=== PATIENT | male | born 1965 | race Caucasian/White ===

== ENCOUNTER → 2017-10-26 | Outpatient (CLI) | payer MEDICARE, OTHER ==
--- NOTE | 2017-10-26 22:16 | CT ---
EXAMINATION TYPE: CT chest abdomen w con DATE OF EXAM: 10/26/2017 INDICATION: Right sided abdominal pain and COPD. COMPARISON: 11/10/2014 CT DLP: 658.9 mGycm CONTRAST: Performed with Oral Contrast and with IV Contrast, patient injected with 100 mL of Isovue M300. TECHNIQUE: Axial images at 5 mm thick sections. Reconstructed images in the coronal plane. Delayed images through the kidneys. FINDINGS: CT CHEST: Portion of the thyroid visualized is normal. No suspicious lung nodules or focal infiltrates are present. No enlarged mediastinal or hilar adenopathy is evident. The ascending aorta diameter at the level of the main pulmonary artery is 3.9 cm. The main pulmonary artery diameter at the bifurcation is 2.9 cm. Coronary artery calcification is noted. Minimal hiatal hernia may be present. CT ABDOMEN: Liver: Normal Spleen: Normal Pancreas: Normal Adrenal glands: The adrenal glands are normal. Gallbladder: Normal Kidneys: No masses are evident. No hydronephrosis is present. There is a 3.7 cm cyst measuring 5 Ho unsfield units in the inferior pole right kidney. Delayed images were obtained through the kidneys, which remain unremarkable. Aorta: Vascular calcification is within the aorta. Inferior vena cava: Normal. Note is made of postsurgical changes within the upper pelvis. Loops of bowel distended with oral cont rast appear unremarkable. IMPRESSIONS: 1. No suspicious changes to account for right-sided abdominal pain. 2. No suspicious changes suggest metastatic disease.
== END | disposition home or self-care (01) ==
LOC: RADCTMAIN 14:08
PROVIDERS: ATTEND Family Medicine
DX: J44.9 Chronic obstructive pulmonary disease, unspecified (principal); R10.9 Unspecified abdominal pain
CPT/HCPCS: 71260; 74160; Q9967

== ENCOUNTER 2019-04-26 21:35 | Inpatient (IN) | payer MEDICARE, OTHER ==
[2019-04-26] MEDS ORDERED: LORazepam 2 MG/ML INJ IV PRN (23:20)
[2019-04-26] MEDS: LORazepam 2 MG/ML INJ IV PRN ×2 (23:25→23:50)
[2019-04-26] MEDS ORDERED: LORazepam 2 MG/ML INJ IV STA (23:31)
[2019-04-26] MEDS ORDERED: NALOXONE 0.4 MG/ML 1 ML VIAL IV PRN (23:48)
[2019-04-27 00:14] LABS: Glucose,Whole Blood 93 mg/dL (75-99)
--- NOTE | 2019-04-27 00:14 | P.HPIM ---
History of Present Illness H&P Date: 04/26/19 The patient is a 54 yo M with a PMH of EtOH abuse and seizure disorder who initially presented to [facility] ED earlier today for confusion and rigidity of his arms. History obtained from the ED physician at [place] (Dr Machado) and from the chart since patient unable to provide history due to active EtOH withdrawal. The patient had reported a history of seizure disorder though he had stopped taking his prescribed Depakote since he didn't like the way it made him feel. The patient had also stated that he had an episode of confusion where he bit his tongue a week prior, possible a seizure. The patient reported drinking 8-10 beers daily with his last beer an hour prior to presentation to the ED. The patient's mentation deteriorated during his stay and he began to hallucinate. He was subsequently transferred to [facility] for further management. The patient not following any commands or answering any questions and severely agitated during interview. Patient underwent an extensive evaluation at [facility] ED which was reviewed personally by me. CT Head had revealed cerebral atrophy, CXR was unremarkable, EKG showed sinus tachycardia @ 108 bpm. Laboratory evaluation had revealed a WBC count of 5.43, hemoglobin 11.9, platelet 131, sodium 132, potassium 3.6, chloride 97, CO2 24, BUN 11, creatinine 0.7, AST 64, ALT 43, alk phos 44, albumin 4.0, glucose 92, and a magnesium of 1.0. The patient was given IV thiamine, 4 g of IV magnesium, and 2 mg of IVP Ativan and was transferred to [place]. Review of Systems ROS unobtainable: due to mental status (not following any commands) Past Medical History Past Medical History: Seizure Disorder Additional Past Medical History / Comment(s): Alcohol abuse History of Any Multi-Drug Resistant Organisms: None Reported Past Surgical History: No Surgical Hx Reported Past Psychological History: Unable to Obtain Medications and Allergies Allergies Allergy/AdvReac Type Severity Reaction Status Date / Time No Known Allergies Allergy Verified 04/26/19 23:19 Physical Exam Vitals: Vital Signs Pulse Resp BP Pulse Ox 04/26/19 23:13 120 H 24 135/82 98 Intake and Output 04/26/19 04/26/19 04/27/19 14:59 22:59 06:59 Other: Weight 77.11 kg General: severely agitated M, appears at stated age, normal weight Derm: no unusual rashes/lesions no unusual ecchymoses, warm, dry Head: atraumatic, normocephalic, symmetric Eyes: anicteric sclera, pupils equal round reactive to light ENT: Nose and ears atraumatic, no thrush, no pharyngeal erythema Neck: No thyromegaly, no cervical lymphadenopathy, trachea midline, supple Mouth: no lip lesion, mucus membranes dry Cardiovascular: S1S2 reg, tachycardic, no murmur, positive posterior tibial pulse bilateral, no edema, capillary refill less than 2 seconds Lungs: CTA bilateral, no rhonchi, no rales , no accessory muscle use Abdominal: soft, no guarding, no appreciable organomegaly Ext: no gross muscle atrophy, unable to assess strength since patient not following commands Neuro: Moving all extremities, diffuse rigidity, unable to perform complete examination since patient not following commands Psych: Not answering any questions appropriately Assessment and Plan Plan: EtOH with delirium tremens -CIWA protocol w/ possible Ativan infusion -Thiamine, Folic acid, MV -Fall, aspiration, seizure precautions -Monitor electrolytes -Neurochecks Hx of seizure disorder -C/w Depakote home dose Severe hypomagnasemia s/p 4 g of IV Mg-sulfate -Monitor and replace as needed Thrombocytopenia -Likely due to EtOH abuse -Monitor for now Deranged LFTs -Due to EtOH withdrawal DVT prophylaxis -Heparin The patient is admitted with an anticipated less than 2 midnight stay for evaluation of DTs CODE STATUS: Full Code Anticipated discharge date: 4-[address]: Home A total of 40 minutes was spent on the care of this complex patient more than 50% of the time was spent in counseling and care coordination.
[2019-04-27] MEDS: LORazepam 2 MG/ML INJ IV PRN ×2 (01:00→05:15)
[2019-04-27] MEDS: HEPARIN SODIUM,PORCINE 5,000 UNIT/ML 1 ML VIAL SQ SCH ×4 (02:22→23:22)
[2019-04-27 05:35] LABS: Basophils % (A) 1 %; Eosinophils # (A) 0.3 k/uL (0-0.7); Eosinophils % (A) 5 %; HCT 35.3 % (39.0-53.0); HGB 11.9 gm/dL (13.0-17.5); Lymphocytes # (A) 0.7 k/uL (1.0-4.8); Lymphocytes % (A) 13 %; MCH 37.6 pg (25.0-35.0); MCHC 33.7 g/dL (31.0-37.0); MCV 111.4 fL (80.0-100.0); Macrocytosis Marked; Mean Platelet Volume 6.9; Monocytes # (A) 0.5 k/uL (0-1.0); Monocytes % (A) 10 %; Neutrophils # (A) 3.6 k/uL (1.3-7.7); Neutrophils % (A) 69 %; Platelet Count 146 k/uL (150-450); RBC 3.17 m/uL (4.30-5.90); RDW 12.8 % (11.5-15.5); WBC 5.3 k/uL (3.8-10.6)
[2019-04-27 05:56] LABS: ALT 46 U/L (21-72); AST 57 U/L (17-59); African American GFR (CKD) >90 (>60 ml/min/1.73 sqM); Albumin 3.8 g/dL (3.5-5.0); Alkaline Phosphatase 40 U/L (38-126); Anion Gap 8 mmol/L; Blood Urea Nitrogen 8 mg/dL (9-20); Calcium 8.7 mg/dL (8.4-10.2); Carbon Dioxide 24 mmol/L (22-30); Chloride 105 mmol/L (98-107); Glucose 73 mg/dL (74-99); Magnesium 1.8 mg/dL (1.6-2.3); Phosphorus 3.4 mg/dL (2.5-4.5); Potassium 3.6 mmol/L (3.5-5.1); Sodium 137 mmol/L (137-145); Total Bilirubin 0.7 mg/dL (0.2-1.3); Total Protein 6.2 g/dL (6.3-8.2)
[2019-04-27] MEDS: MAGNESIUM SULFATE-D5W PMX 1 GM in DEXTROSE/WATER 1 100ML.BAG IVPB SCH ×2 (06:28→08:11)
[2019-04-27] MEDS: POTASSIUM CHLORIDE 10 MEQ in WATER FOR INJECTION 1 100ML.BAG IVPB SCH ×2 (06:29→08:11)
[2019-04-27] MEDS: FOLIC ACID 1 MG TAB PO SCH (08:11)
[2019-04-27] MEDS ORDERED: THIAMINE 100 MG in SODIUM CHLORIDE 0.9% 50 ML IVPB SCH (09:00)
[2019-04-27] MEDS: SODIUM CHLORIDE 0.9% 1,000 ML IV SCH (10:52)
--- NOTE | 2019-04-27 13:08 | P.CNPUL ---
History of Present Illness Consult date: 04/27/19 Chief complaint: Alcohol withdrawal History of present illness: 4-year-old male patient with known history of alcoholism and seizure disorder and previous history of malignancy probably of a GI source came into the hospital initially to [place] because of altered mentation and rigidity and weakness and dizziness. He was subsequently transferred to our hospital and overnight the patient got transferred to the intensive care unit as the patient was having active alcohol withdrawal and he was in delirium tremens. Overnight the patient was treated with Atrovent and this morning he is calm and comfortable still drowsy yet arousable and is following some simple commands. He reported history of seizure disorder and apparently was prescribed Depakote which intake. There is no clear-cut reports history of seizure activity. This is however suspect that the patient had bitten his tongue approximately a week ago. He drinks around 8-10 beers on a daily basis. No reported head trauma. Upon arrival, the patient was quite agitated and he was not able to follow any commands and he was transferred to the ICU. His blood work shows a white cell count of 5.3 with hemoglobin of 11.5. His BUN is at 80 with a creatinine 0.5. His potassium level is at 3.6. Electrodes are all within normal limits including a liver function test. CAT scan of the brain was done and [facility] that showed cerebral atrophy. Chest x-ray was unremarkable. EKG was in a sinus rhythm. No reported aspiration. Currently he is being hydrated IV fluids. He is still on Ativan protocol. He is receiving normal saline at the rate of 50 mL an hour. He is on heparin subcu for DVT prophylaxis. No agitation this morning. Review of Systems ROS unobtainable: due to mental status Past Medical History Past Medical History: Seizure Disorder Additional Past Medical History / Comment(s): Alcohol abuse, history of colon cancer and questionable lung cancer. The most recent CAT scan of the chest and abdomen that was done on 10/26/2017 was within normal limits. However there is a prior CAT scan of the chest on 11/10/2014 that showed enlarging spiculated nodule in the right upper lobe suspicious for malignancy. PET scan confirmed that. The follow-up CAT scan that was done on 10/26/2017 showed that this has been probably surgically resected. History of Any Multi-Drug Resistant Organisms: None Reported Past Surgical History: No Surgical Hx Reported Additional Past Surgical History / Comment(s): Lung biopsy + for CA, partial resection. Colon CA with partial colectomy Past Anesthesia/Blood Transfusion Reactions: No Reported Reaction Past Psychological History: Unable to Obtain Medications and Allergies Home Medications Medication Instructions Recorded Confirmed Type No Known Home Medications 04/27/19 04/27/19 History Allergies Allergy/AdvReac Type Severity Reaction Status Date / Time No Known Allergies Allergy Verified 04/27/19 10:51 Physical Exam Vitals: Vital Signs Temp Pulse Pulse Resp BP BP Pulse Ox 04/27/19 09:00 84 23 124/87 04/27/19 08:00 98.6 F 91 18 159/97 94 L 04/27/19 07:00 105 H 23 172/105 04/27/19 06:00 96 25 H 146/101 100 04/27/19 05:00 98.1 F 100 23 166/154 92 L 04/27/19 04:00 112 H 120 H 18 140/92 93 L 04/27/19 03:00 97 25 H 123/90 96 04/27/19 02:20 96 38 H 157/81 97 04/27/19 02:10 96 40 H 157/81 96 04/27/19 02:00 100 15 157/81 99 04/27/19 01:50 22 157/81 95 04/27/19 01:40 95 21 157/81 97 04/27/19 01:30 96 22 157/81 97 04/27/19 01:20 96 22 157/81 97 04/27/19 01:10 101 H 15 157/81 97 04/27/19 01:00 22 157/81 90 L 04/27/19 00:50 99 25 H 91 L 04/27/19 00:40 98 23 92 L 04/27/19 00:30 100 25 H 92 L 04/27/19 00:20 101 H 27 H 157/81 92 L 04/27/19 00:10 112 H 24 04/27/19 00:03 107 H 48 H 04/26/19 23:13 120 H 24 135/82 98 04/26/19 23:07 97.1 F L 114 H 22 157/81 Intake and Output 04/26/19 04/27/19 04/27/19 22:59 06:59 14:59 Intake Total 600 400 Output Total 100 Balance 600 300 Intake: IV 50 0.9NS 50 Intake, IV Titration 600 350 Amount Magnesium Sulfate-D5w Pmx 100 100 1 gm In Dextrose/Water 1 100ml.bag @ 100 mls/hr IVPB Q1H [facility] Rx#: [id number] Potassium Chloride 10 meq 100 100 In Water For Injection 1 100ml.bag @ 100 mls/hr IVPB Q1H [facility] Rx#: [id number] Thiamine 100 mg In Sodium 400 150 Chloride 0.9% 50 ml @ 100 mls/hr IVPB Q12HR [facility] Rx#:[id number] Output: Urine 100 Other: Voiding Method Urinal Diaper # Voids 2 2 # Bowel Movements 1 Weight 77.11 kg The patient appeared well nourished and normally developed. Vital signs as documented. Head exam is unremarkable. No scleral icterus or corneal arcus noted. Neck is without jugular venous distension, thyromegaly, or carotid bruits. Carotid upstrokes are brisk bilaterally. Lungs are clear to auscultation and percussion. Cardiac exam reveals the PMI to be normally sized and situated. Rhythm is regular. First and second heart sounds normal. No murmurs, rubs or gallops. Abdominal exam reveals normal bowel sounds, no masses, no organomegaly and no aortic enlargement. Extremities are nonedematous and both femoral and p edal pulses are normal.Examination of the skin revealed no evidence of significant rashes, suspicious appearing nevi or other concerning lesions. Neurologically the patient is moving all 4 extremities and neurologic exam is nonfocal. Overall altered mental status improved. He still has some drowsiness and sleepiness to. He is following simple commands. Answering simple questions. Results - Laboratory Findings CBC and BMP: 04/27/19 04:41 04/27/19 04:41 Abnormal lab findings: Abnormal Labs 04/27/19 04/27/19 04:41 04:41 RBC 3.17 L Hgb 11.9 L Hct 35.3 L MCV 111.4 H MCH 37.6 H Plt Count 146 L Lymphocytes # 0.7 L Macrocytosis Marked A BUN 8 L Creatinine 0.58 L Glucose 73 L Total Protein 6.2 L Assessment and Plan Plan: 1 chronic alcoholism 2 alcohol withdrawal symptoms with delirium tremens 3 seizure disorder currently inactive in stable 4 chronic thrombocytopenia secondary to alcoholism 5 history of lung cancer, exact details are not available 6 history of colon cancer, exact details are not available. Plan Patient is stable. The patient will be kept on IV fluids. Multivitamins getting thiamine and folate. Overall condition is improved. Continue Ativan. Heparin subcu for DVT prophylaxis. The patient can be transferred out of the intensive care unit to a medical surgical floor. The patient will be leaving the ICU today. Electrodes are being replaced. Medicine on the case. Seizure precautions. We'll follow as needed.
--- NOTE | 2019-04-27 13:15 | P.PN ---
Subjective Progress Note Date: 04/27/19 Principal diagnosis: confusion Patient is a 54-year-old male with past medical history of known alcoholism, seizure disorder, and malignancy who initially was seen in the emergency department secondary to weakness and blurry vision as well as lithium lidocaine. He also reported biting his tongue. In the ER there he had worsening confusion and subsequently transferred here was requested. Patient has a history of seizure disorder but he has not been taking Depakote as himself off of this. Head CT done at [place] showed no acute intracranial process per the radiology, chest x-ray showed no acute findings, he was given 4 g of magnesium sulfate, a banana bag, 2 mg IV Ativan. On arrival here patient was not following any commands or answering questions and was severely agitated. He required additional IV Ativan and was subsequently transferred to ICU. Patient seen and examined at bedside. He states that he went to [facility] secondary to blurry vision. He believes he was transferred here because his children are fighting in the emergency department at [place]. He states he took himself off of Depakote. He does admit to an episode of tongue biting, however doesn't think he's been having seizures. He drinks proximally 8-10 beers daily and has no intentions of quitting when leaving the hospital. He asked to be discharged. I explained to him that we will monitor him for an additional 24 hours, assess his CIWA, and monitor for reoccurrence of seizures prior to discharge. Objective - Vital Signs Vital signs: Vital Signs Temp 98.6 F 04/27/19 08:00 Pulse 84 04/27/19 09:00 Resp 23 04/27/19 09:00 BP 124/87 04/27/19 09:00 Pulse Ox 94 L 04/27/19 08:00 Intake & Output 04/26/19 04/27/19 04/27/19 18:59 06:59 18:59 Intake Total 600 400 Output Total 100 Balance 600 300 Weight 77.11 kg Intake: IV 50 0.9NS 50 Intake, IV Titration 600 350 Amount Magnesium Sulfate-D5w Pmx 100 100 1 gm In Dextrose/Water 1 100ml.bag @ 100 mls/hr IVPB Q1H [facility] Rx#: [id number] Potassium Chloride 10 meq 100 100 In Water For Injection 1 100ml.bag @ 100 mls/hr IVPB Q1H [facility] Rx#: [id number] Thiamine 100 mg In Sodium 400 150 Chloride 0.9% 50 ml @ 100 mls/hr IVPB Q12HR [facility] Rx#:[id number] Output: Urine 100 Other: Voiding Method Urinal Diaper # Voids 2 2 # Bowel Movements 1 - Exam General: non toxic, no distress, disheveled, appears older than stated age Derm: warm, dry Head: atraumatic, normocephalic, symmetric Eyes: EOMI, no lid lag, anicteric sclera Mouth: no lip lesion, mucus membranes moist Cardiovascular: S1S2 reg, no murmur, positive posterior tibial pulse bilateral, Lungs: Decreased breath sounds bilateral, no rhonchi, no rales , no accessory muscle use Abdominal: soft, nontender to palpation, no guarding, no appreciable org anomegaly Ext: no gross muscle atrophy, no edema, no contractures Neuro: CN II-XI grossly intact, no focal neuro deficits, mild asterixis Psych: Alert, oriented to place, year, and self, appropriate affect - Labs CBC & Chem 7: 04/27/19 04:41 04/27/19 04:41 Labs: Abnormal Lab Results - Last 24 Hours (Table) 04/27/19 04/27/19 Range/Units 04:41 04:41 RBC 3.17 L (4.30-5.90) m/uL Hgb 11.9 L (13.0-17.5) gm/dL Hct 35.3 L (39.0-53.0) % MCV 111.4 H (80.0-100.0) fL MCH 37.6 H (25.0-35.0) pg Plt Count 146 L (150-450) k/uL Lymphocytes # 0.7 L (1.0-4.8) k/uL Macrocytosis Marked A BUN 8 L (9-20) mg/dL Creatinine 0.58 L (0.66-1.25) mg/dL Glucose 73 L (74-99) mg/dL Total Protein 6.2 L (6.3-8.2) g/dL Assessment and Plan Assessment: Delirium tremens with acute confusion, concern for seizure -Seizure precautions -Alcohol withdrawal protocol with CIWA -Thiamine, multivitamin, folic acid -Social work consultation -Patient expresses no desire to quit drinking History of seizure disorder -Patient has not been taking Depakote for 6 months -No neurology available for evaluation this weekend -Continue to monitor for seizures -Seizure precautions Hypomagnesemia -Replace and recheck in a.m. Macrocytic anemia and thrombocytopenia -Suspect secondary to alcohol use -Follow CBC -Check B12, folic acid level Tobacco abuse -Cessation -Nicotine replacement Transfer to med/surg DVT prophylaxis: Heparin Discussed with: Patient, nursing, Dr. Christianson Anticipated discharge: 24-[address]: home A total of 35 minutes was spent on the care of this complex patient more than 50% of the time was spent in counseling and care coordination.
[2019-04-27] MEDS: THIAMINE 100 MG TAB PO SCH (14:18)
[2019-04-27] MEDS: NICOTINE 14MG/24HR PATCH TRANSDERM SCH (14:19)
[2019-04-27 17:02] LABS: Glucose,Whole Blood 99 mg/dL (75-99)
[2019-04-27 20:08] LABS: Glucose,Whole Blood 197 mg/dL (75-99)
[2019-04-27 20:40] VITALS: RESP 22
[2019-04-28 05:18] VITALS: BP 157/94; TEMP 98
[2019-04-28 06:51] LABS: Glucose,Whole Blood 104 mg/dL (75-99)
[2019-04-28 07:20] VITALS: PULSE 81
[2019-04-28] MEDS: HEPARIN SODIUM,PORCINE 5,000 UNIT/ML 1 ML VIAL SQ SCH (07:27)
[2019-04-28] MEDS: FOLIC ACID 1 MG TAB PO SCH (07:27)
[2019-04-28] MEDS: THIAMINE 100 MG TAB PO SCH (07:27)
[2019-04-28] MEDS: NICOTINE 14MG/24HR PATCH TRANSDERM SCH (07:27)
[2019-04-28] MEDS: SODIUM CHLORIDE 0.9% 1,000 ML IV SCH (07:28)
[2019-04-28 08:23] LABS: Basophils % (A) 1 %; Eosinophils # (A) 0.3 k/uL (0-0.7); Eosinophils % (A) 7 %; HCT 36.6 % (39.0-53.0); HGB 12.2 gm/dL (13.0-17.5); Lymphocytes # (A) 0.8 k/uL (1.0-4.8); Lymphocytes % (A) 15 %; MCH 37.1 pg (25.0-35.0); MCHC 33.3 g/dL (31.0-37.0); MCV 111.3 fL (80.0-100.0); Macrocytosis Marked; Mean Platelet Volume 7.4; Monocytes # (A) 0.5 k/uL (0-1.0); Monocytes % (A) 10 %; Neutrophils # (A) 3.1 k/uL (1.3-7.7); Neutrophils % (A) 64 %; Platelet Count 157 k/uL (150-450); RBC 3.28 m/uL (4.30-5.90); WBC 4.9 k/uL (3.8-10.6)
[2019-04-28 08:25] LABS: African American GFR (CKD) >90 (>60 ml/min/1.73 sqM); Anion Gap 5 mmol/L; Blood Urea Nitrogen 7 mg/dL (9-20); Calcium 9.1 mg/dL (8.4-10.2); Carbon Dioxide 28 mmol/L (22-30); Chloride 102 mmol/L (98-107); Glucose 101 mg/dL (74-99); Magnesium 1.5 mg/dL (1.6-2.3); Potassium 3.9 mmol/L (3.5-5.1); Sodium 135 mmol/L (137-145)
--- NOTE | 2019-04-28 09:58 | P.DS ---
Providers Date of admission: 04/26/19 23:04 Expected date of discharge: 04/28/19 Attending physician: Sterling Key MD Consults: 04/26/19 23:27 Consult Physician Urgent Consulting Provider: Jina Christianson Consult Reason/Comments: ICU management Do you want consulting provider notified?: Already Contacted Placement Type Exists?: Yes Primary care physician: [facility] Hospital Course: Discharge Diagnosis: Toxic encephalopathy, doubt alcohol induced with rapid clearance of mentation Alcohol abuse Thrombocytopenia Tobacco abuse Hypomagnesemia Macrocytic anemia Hospital Course: Patient is a 54-year-old male with past medical history of known alcoholism, seizure disorder, and malignancy who initially was seen in the emergency department secondary to weakness and blurry vision as well as hand cramping . He also reported biting his tongue 2 weeks prior to presentation. In the ER there he had worsening confusion and subsequently transferred here was requested. Patient has a history of seizure disorder but he has not been taking Depakote as himself off of this several months ago as he thought it was not helping. Head CT done at [place] showed no acute intracranial process per radiology, chest x-ray showed no acute findings, he was given 4 g of magnesium sulfate, a banana bag, 2 mg IV Ativan. On arrival here patient was not following any commands or answering questions and was severely agitated. He required additional IV Ativan and was subsequently transferred to ICU. By the morning after admission his mentation had complete cleared. He did not require any additional doses of Ativan. 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 Patient was monitored for an additional 24 hours no signs of seizure activity. He was up and walking in the hallways. He reports not seeing a doctor due to lack of rides. He was given the number for Severiano Miller of [facility] and information on how to set up rides through his insurance. He was discharged home in stable condition. He does not drive. Patient seen and examined at bedside. No confusion, RUBI, had cramping, or blurry vision, walking fine. Wants to be discharged. Vital signs reviewed and stable. General: non toxic, no distress, appears at stated age Derm: warm, dry Head: atraumatic, normocephalic, symmetric Eyes: EOMI, no lid lag, anicteric sclera Mouth: no lip lesion, mucus membranes moist Cardiovascular: S1S2 reg, no murmur, positive posterior tibial pulse bilateral, Lungs: CTA bilateral, no rhonchi, no rales , no accessory muscle use Abdominal: soft, nontender to palpation, no guarding, no appreciable organomegaly Ext: no gross muscle atrophy, no edema, no contractures Neuro: CN II-XI grossly intact, no focal neuro deficits Psych: Alert, oriented, appropriate affect A total of 32 minutes of time were spent preparing this complex discharge summary . Patient Condition at Discharge: Stable Plan - Discharge Summary Discharge Rx Participant: Yes New Discharge Prescriptions: Continue No Known Home Medications Discharge Medication List No Known Home Medications 04/27/19 [History] Follow up Appointment(s)/Referral(s): Severiano Miller MD [REFERRING] - 1 Week Patient Instructions/Handouts: Abuse of Alcohol (DC)
== END 2019-04-28 11:20 | disposition home or self-care (01) | DRG 92 ==
LOC: 3SCARD 23:04 → 2SICU 04-27 00:24 → 3NMEDONC 04-27 15:20
PROVIDERS: ADMIT Internal Medicine; ATTEND Internal Medicine
DX: G92 Toxic encephalopathy (principal); F10.231 Alcohol dependence with withdrawal delirium; G40.909 Epilepsy, unspecified, not intractable, without status epilepticus; Z72.0 Tobacco use; Z85.038 Personal history of other malignant neoplasm of large intestine; Z85.118 Personal history of other malignant neoplasm of bronchus and lung; D53.9 Nutritional anemia, unspecified; D69.59 Other secondary thrombocytopenia; E83.42 Hypomagnesemia; R25.2 Cramp and spasm; R45.1 Restlessness and agitation; T42.6X6A Underdosing of other antiepileptic and sedative-hypnotic drugs, initial encounter; Z91.128 Patient's intentional underdosing of medication regimen for other reason; R00.0 Tachycardia, unspecified
CPT/HCPCS: 80048; 80053; 82747; 83735; 84100; 85025

== ENCOUNTER 2019-07-04 12:22 | Emergency (ER) | payer MEDICARE ==
[2019-07-04 12:40] VITALS: BP 157/104; PULSE 99; RESP 20; TEMP 98.1
[2019-07-04] MEDS ORDERED: KETOROLAC 60 MG/2 ML VIAL IM STA (14:13)
--- NOTE | 2019-07-04 14:18 | ED ---
Upper Extremity HPI - General Chief Complaint: Extremity Injury, Upper Stated Complaint: Neck/Shoulder Pain Time Seen by Provider: 07/04/19 13:51 Source: patient Mode of arrival: ambulatory Limitations: no limitations - History of Present Illness Initial Comments: Patient is a 54-year-old male presenting to emergency Department with complaints of left shoulder and left-sided sided neck pain for 4 days. Patient denies any injuries or trauma to the area. Patient states he woke up 4 days ago with mild left-sided neck pain and stiffness and then the last 2 days the stiffness has traveled to his left shoulder parade and into his left shoulder. Patient states he is having a hard time sleeping secondary to the pain and stiffness. Patient denies any history of cervical or shoulder surgeries. Patient has tried Tylenol without relief of symptoms. Patient denies any numbness and tingling into the extremities, fever, chills. Patient has no other complaints at this time. Upon arrival to the ER, vital signs are stable. - Related Data Previous Rx's Medication Instructions Recorded Cyclobenzaprine [Flexeril] 5 mg PO HS #10 tab 07/04/19 methylPREDNISolone [Medrol Dose 4 mg PO DIRECTED #1 pack 07/04/19 Pack] Allergies Allergy/AdvReac Type Severity Reaction Status Date / Time No Known Allergies Allergy Verified 07/04/19 12:40 Review of Systems ROS Statement: Those systems with pertinent positive or pertinent negative responses have been documented in the HPI. ROS Other: All systems not noted in ROS Statement are negative. Past Medical History Past Medical History: Seizure Disorder Additional Past Medical History / Comment(s): Alcohol abuse, history of colon cancer and questionable lung cancer. The most recent CAT scan of the chest and abdomen that was done on 10/26/2017 was within normal limits. However there is a prior CAT scan of the chest on 11/10/2014 that showed enlarging spiculated nodule in the right upper lobe suspicious for malignancy. PET scan confirmed that. The follow-up CAT scan that was done on 10/26/2017 showed that this has been probably surgically resected. History of Any Multi-Drug Resistant Organisms: None Reported Past Surgical History: No Surgical Hx Reported Additional Past Surgical History / Comment(s): Lung biopsy + for CA, partial resection. Colon CA with partial colectomy Past Anesthesia/Blood Transfusion Reactions: No Reported Reaction Past Psychological History: Depression Smoking Status: Current every day smoker Past Alcohol Use History: Abuse, Daily Past Drug Use History: Marijuana General Exam - General Exam Comments Initial Comments: GENERAL: Well-appearing, well-nourished and in no acute distress. HEAD: Atraumatic, normocephalic. EYES: Pupils equal round and reactive to light, extraocular movements intact, sclera anicteric, conjunctiva are normal. ENT: TMs normal, nares patent, oropharynx clear without exudates. Moist mucous membranes. NECK: Mild pain with palpation a left-sided paraspinals into the left upper trap. Normal range of motion, supple without lymphadenopathy or JVD. LUNGS: Breath sounds clear to auscultation bilaterally and equal. No wheezes rales or rhonchi. HEART: Regular rate and rhythm without murmurs, rubs or gallops. ABDOMEN: Soft, nontender, normoactive bowel sounds. No guarding, no rebound. No masses appreciated. : Deferred EXTREMITIES: Pain with palpation of the left shoulder blade, posterior aspect of left shoulder. Patient has decreased left shoulder range of motion secondary to pain. No pitting or edema. No clubbing or cyanosis. NEUROLOGICAL: Cranial nerves II through XII grossly intact. Normal speech, normal gait. PSYCH: Normal mood, normal affect. SKIN: Warm, Dry, normal turgor, no rashes or lesions noted. Limitations: no limitations Course Vital Signs 07/04/19 12:35 Temperature 98.1 F Pulse Rate 99 Respiratory 20 Rate Blood Pressure 157/104 O2 Sat by Pulse 99 Oximetry Medical Decision Making - Medical Decision Making Patient is a 54-year-old male presenting with left-sided neck pain as well as left shoulder pain 4 days. No trauma or injuries. No Red flag/concerning symptoms. X-rays of the cervical spine reveal hypertrophic facet arthroplasty and mild and moderate neural foraminal narrowing on the left. No malalignment. Discussed these findings with the patient. Admits that this is most likely a muscle spasm and inflammation. Patient will be given Toradol injection the ER. Patient will also be started on a muscle relaxer as well as steroids. Patient will be given referral to orthopedic for follow-up. Patient is stable for discharge at this time he is in agreement with this plan of care. Return parameters were discussed with the patient he verbalizes understanding. Disposition Clinical Impression: Cervical muscle strain, Left shoulder pain Disposition: HOME SELF-CARE Condition: Stable Instructions (If sedation given, give patient instructions): Cervical Strain (ED) Additional Instructions: Please return to the Emergency Department if symptoms worsen or any other concerns. Follow up with orthopedics as discussed. Trial of Tylenol and muscle relaxer for pain relief. She'll course of steroids as well. Prescriptions: Cyclobenzaprine [Flexeril] 5 mg PO HS #10 tab methylPREDNISolone [Medrol Dose Pack] 4 mg PO DIRECTED #1 pack Is patient prescribed a controlled substance at d/c from ED?: No Referrals: Perry Miller MD [Primary Care Provider] - 1-2 days Nayeli Delgado DO [Doctor of Osteopathic Medicine] - 1-2 days
--- NOTE | 2019-07-04 14:52 | XR ---
EXAMINATION TYPE: XR cervical spine comp DATE OF EXAM: 07/04/2019 COMPARISON: None HISTORY: 54-year-old male with a pain and limited range of motion TECHNIQUE: 6 views FINDINGS: No predental space widening or prevertebral soft tissue swelling. Advanced hypertrophic facet arthrop athy particularly towards the left. Mild multilevel degenerative disc disease. On the right, there is mild bony neuroforaminal narrowing at C3-C4. On the left, there is moderate bony neuroforaminal narr owing at C2-C3, C3-C4, C4-C5 and more moderate at C5-C6. No odontoid view. It seems to be overall pre served alignment of the cervical spine. IMPRESSION: Hypertrophic facet arthropathy greater on the left with variable mild and moderate neural foraminal n arrowing on the left. No malalignment.
== END 2019-07-04 15:44 | disposition home or self-care (01) ==
LOC: EC 12:22
DX: S16.1XXA Strain of muscle, fascia and tendon at neck level, initial encounter (principal); M25.512 Pain in left shoulder; M48.02 Spinal stenosis, cervical region; F17.200 Nicotine dependence, unspecified, uncomplicated; Z85.038 Personal history of other malignant neoplasm of large intestine
CPT/HCPCS: 72050; 99283; 96372; J1885

== ENCOUNTER → 2019-08-10 | Outpatient (CLI) | payer MEDICARE ==
[2019-08-10 10:48] LABS: Basophils # (A) 0.1 k/uL (0-0.2); Basophils % (A) 1 %; Eosinophils # (A) 0.2 k/uL (0-0.7); Eosinophils % (A) 3 %; HCT 46.9 % (39.0-53.0); HGB 15.5 gm/dL (13.0-17.5); Lymphocytes # (A) 0.8 k/uL (1.0-4.8); Lymphocytes % (A) 13 %; MCH 34.1 pg (25.0-35.0); MCHC 33.1 g/dL (31.0-37.0); MCV 103.1 fL (80.0-100.0); Macrocytosis Slight; Monocytes # (A) 0.4 k/uL (0-1.0); Monocytes % (A) 7 %; Neutrophils # (A) 4.8 k/uL (1.3-7.7); Neutrophils % (A) 74 %; Platelet Count 272 k/uL (150-450); RBC 4.54 m/uL (4.30-5.90); RDW 12.9 % (11.5-15.5); WBC 6.5 k/uL (3.8-10.6)
[2019-08-10 10:57] LABS: ALT 15 U/L (4-49); AST 29 U/L (17-59); African American GFR (CKD) >90 (>60 ml/min/1.73 sqM); Albumin 4.3 g/dL (3.5-5.0); Alkaline Phosphatase 48 U/L (38-126); Anion Gap 6 mmol/L; Blood Urea Nitrogen 8 mg/dL (9-20); Calcium 9.6 mg/dL (8.4-10.2); Carbon Dioxide 25 mmol/L (22-30); Chloride 103 mmol/L (98-107); Glucose 83 mg/dL (74-99); Non-African American GFR(CKD) >90 (>60 ml/min/1.73 sqM); Potassium 4.8 mmol/L (3.5-5.1); Sodium 134 mmol/L (137-145); Total Bilirubin 0.6 mg/dL (0.2-1.3)
[2019-08-10 11:00] LABS: INR 0.9 (<1.2); Partial Thromboplastin Time 23.1 sec (22.0-30.0); Prothrombin Time 9.7 sec (9.0-12.0)
--- NOTE | 2019-08-10 11:06 | XR ---
EXAMINATION TYPE: XR chest 2V DATE OF EXAM: 08/10/2019 HISTORY: Z01.818 PRE-SURGICAL. REFERENCE: NONE. FINDINGS: There is apparent elevation right hemidiaphragm. The lungs are otherwise slightly overinfla kaycee but clear. Pleural spaces are clear. The heart is not enlarged. IMPRESSION: NO ACTIVE INTRATHORACIC DISEASE.
[2019-08-10 12:50] LABS: Appearance,Urine Clear (Clear); Bilirubin,Urine Negative (Negative); Blood,Urine Negative (Negative); Color,Urine Yellow; Glucose,Urine (UA) Negative (Negative); Ketones,Urine Negative (Negative); Leukocyte Esterase,Urine Negative (Negative); Nitrite,Urine Negative (Negative); PH, Urine 5.5 (5.0-8.0); Protein,Urine Negative (Negative); Specific Gravity,Urine 1.016 (1.001-1.035); Urobilinogen,Urine <2.0 mg/dL (<2.0)
== END | disposition home or self-care (01) ==
LOC: LABPAT 10:11
PROVIDERS: ATTEND Orthopaedic Surgery Orthopaedic Surgery of the Spine
DX: Z01.818 Encounter for other preprocedural examination (principal); Z01.812 Encounter for preprocedural laboratory examination; R06.02 Shortness of breath
CPT/HCPCS: 36415; 71046; 80053; 81003; 85025; 85610; 85730

== ENCOUNTER 2019-08-14 07:52 | Inpatient (IN) | payer MEDICARE ==
[2019-08-07 15:27] VITALS: BMI 25.1
[~2019-08-14 07:52] MED LIST: BACITRACIN 50,000 UNIT, POLYMYXIN B 500,000 UNIT in SODIUM CHLORIDE 0.9% IRRIGATIO 1,00... IRRIGATION ONE; DEXAMETHASONE SOD PHOSPHATE 10 MG/ML 1 ML VIAL IV ONE; HYDROmorphone 0.5 MG/0.5 ML SYRINGE IVP PRN; LIDOCAINE 1% 20 ML VIAL (10MG/ML) FOR IV START INTRADERMA PRN; MIDAZOLAM 2 MG/2 ML VIAL IV PRN; ONDANSETRON 4 MG/2 ML VIAL IVP ONE; SCOPOLAMINE 1.5MG/72HR PATCH TRANSDERM ONE
[2019-08-14] MEDS: LACTATED RINGERS 1,000 ML IV SCH (08:19)
[2019-08-14] MEDS ORDERED: PHENYLEPHRINE-0.9% NACL SYG 1 MG/10 ML SYRINGE ONE (08:49)
[2019-08-14] MEDS ORDERED: DEXAMETHASONE SOD PHOS (MDV) 100 MG/10 ML VIAL ONE (08:49)
[2019-08-14] MEDS ORDERED: MIDAZOLAM 2 MG/2 ML VIAL ONE (08:49)
[2019-08-14] MEDS ORDERED: GLYCOPYRROLATE 0.2 MG/ML 2 ML VIAL ONE (08:49)
[2019-08-14] MEDS ORDERED: ESMOLOL 100 MG/10 ML VIAL ONE (08:49)
[2019-08-14] MEDS ORDERED: SUCCINYLCHOLINE CHLORIDE 100 MG/5 ML SYR IV ONE (08:49)
[2019-08-14] MEDS ORDERED: KETAMINE 10 MG/ML 20 ML VIAL ONE (08:49)
[2019-08-14] MEDS ORDERED: ACETAMINOPHEN IV (For NPO) 1,000 MG/100 ML VIAL ONE (08:49)
[2019-08-14] MEDS ORDERED: fentaNYL (PF) 50 MCG/ML 2 ML AMP ONE (08:49)
[2019-08-14] MEDS ORDERED: ROCURONIUM BROMIDE 10 MG/ML 10 ML VIAL IV ONE (08:49)
[2019-08-14] MEDS ORDERED: PROPOFOL 10 MG/ML 20 ML VIAL IV ONE (08:49)
[2019-08-14] MEDS ORDERED: LIDOCAINE 1% INJ 10MG/ML (20 ML MDV) ONE (08:49)
[2019-08-14] MEDS ORDERED: .MORPHINE SULFATE (INJ) 10 MG/ML SYRINGE ONE (08:49)
[2019-08-14] MEDS ORDERED: THROMBIN (BOVINE) 5,000 UNIT VIAL TOPICAL ONE (08:54)
[2019-08-14] MEDS ORDERED: LIDOCAINE 0.5%-EPI 1:200,000 50 ML VIAL SQ ONE (08:54)
[2019-08-14] MEDS ORDERED: GELATIN SPONGE,ABSORB (LARGE) 1 EACH SPONGE TOPICAL ONE (08:54)
[2019-08-14] MEDS ORDERED: LACTATED RINGERS 1,000 ML IV ONE (11:21)
[2019-08-14] MEDS ORDERED: MAGNESIUM HYDROXIDE 2,400 MG/10 ML CUP PO PRN (11:27)
[2019-08-14] MEDS ORDERED: ACETAMINOPHEN TAB 325 MG TAB PO PRN (11:27)
[2019-08-14] MEDS ORDERED: traMADol 50 MG TAB PO PRN (11:27)
[2019-08-14] MEDS ORDERED: ONDANSETRON 4 MG/2 ML VIAL IVP PRN (11:27)
[2019-08-14] MEDS ORDERED: HYDROmorphone 1 MG/ML 1 ML SYRINGE IVP PRN (11:27)
[2019-08-14] MEDS ORDERED: BENZOCAINE/MENTHOL LOZENG 1 EACH LOZENGE MUCOUS MEM PRN (11:27)
--- NOTE | 2019-08-14 11:34 | FL ---
EXAMINATION TYPE: FL guidance operating room, XR cervical spine 1V DATE OF EXAM: 08/14/2019 CLINICAL HISTORY: Neck pain. TECHNIQUE: Fluoroscopy. COMPARISON: None. FINDINGS: Fluoroscopic guidance was provided during pain relief procedure performed by Dr. Swenson . A total of 16 seconds of fluoroscopic time was utilized during the procedure and 6 spot images are acquired. Images acquired shows localization of the cervical spine intraoperatively. IMPRESSION: As Above.
[2019-08-14] MEDS: HYDROcodone/APAP 5-325MG 1 EACH TAB PO PRN ×3 (13:35→22:29)
[2019-08-14] MEDS ORDERED: DIAZEPAM 5 MG TAB PO PRN (14:18)
--- NOTE | 2019-08-14 14:33 | P.OP ---
Date of Procedure: 08/14/19 Preoperative Diagnosis: Cervical stenosis C6 7, left upper extremity weakness, left upper extremity pain, facet cyst C6 7 on the left with neural compression, neck pain Postoperative Diagnosis: Same Anesthesia: GETA Pathology: other (Products of posterior decompression at C6 7 sent to pathology presumably facet cyst) Condition: stable Disposition: PACU Description of Procedure: BRIEF OPERATIVE NOTE Preoperative Diagnosis:Cervical stenosis C6 7, left upper extremity weakness, left upper extremity pain, facet cyst C6 7 on the left with neural compression, neck pain Postoperative Diagnosis:Cervical stenosis C6 7, left upper extremity weakness, left upper extremity pain, facet cyst C6 7 on the left with neural compression, neck pain Procedure: Application of Gupta head waiter for positioning for posterior spinal surgery Posterior cervical decompression laminectomy with foraminotomy and fusion C6 7 Posterior cervical fusion C6 7 Use of [employer] computer navigation device for placement of posterior cervical hardware Placement of posterior cervical hardware C6 7 Local autogenous bone grafting Surgeon: Dr. Delgado [employer] Volley[employer] Coach: Omer Sandra is present throughout the entire the case persistence during positioning, dissection, exposure, visualization, and all crucial elements of the case as well as closure. Anesthesia: General anesthesia Estimated blood loss: Approximately 100 mL Complications: None apparent Components implanted: K2M [place] posterior cervical lateral mass and posterior cervical pedicle screws with rods and 5 mL of Bio4 bone graft to supplemental local autogenous bone graft Disposition: To recovery room in good stable condition. OPERATIVE INDICATIONS The patient has had severe issues in their neck and upper extremities. He is been having significant weakness in his left upper extremity around his shoulder. He has a long history of multiple medical problems but was having worsening of his symptoms at his left upper extremity. Patient has a history of real alcohol use and severe paresthesias in his bilateral lower extremities from the waist down. The patient was found to have significant changes cervical spine and a large parents facet cyst at C6 7 on the left which correlate with much of his neck and left upper extremity pain and symptoms. The patient was having severe debility due to his shoulder pain and lack of use of his left upper extremity and we felt that surgical intervention for the severe stenosis at C6 7 due to the apparent facet cyst would give him significant relief. Our plan is to pursue posterior cervical decompression and fusion at C6 7. The patient has been through conservative treatment. We discussed various treatment options including surgery, and the patient wishes to proceed with surgery We discussed the risk, patient's alternatives and benefits of surgery including but not limited to, risk of bleeding risk of infection, risk of need for further surgery, risk of decreased, loss of motion, muscle function, malunion nonunion, hardware failure, nerve damage, paralysis, heart attack, and . OPERATIVE SUMMARY After discussing all the risks, patient alternatives and benefits at length, the patient elected to proceed with surgical intervention, signed informed consent, and presented for their procedure. The patient was seen and examined in the preoperative holding area and the surgical site was marked. The patient was given antibiotics and brought to the operating room. The patient was sedated and intubated by anesthesia in standard fashion without A, occasions. Once the airway and C-spine were secured I prepared his scalp and sterile his scalp and prepared the Gupta head waiter. I was able to apply the Gupta headholder appropriately over his ears and good alignment good position with good stabilization of his head and neck. With the Gupta head waiter intact we were able to prepare for positioning. The patient was then positioned on to a prone position with a Taras frame in the Gupta head waiter intact. We took great care to maintain appropriate position of his cervical spine and head. We maintained good neutral alignment and position and the Gupta head waiter was locked in place without any evidence of any pressure from the locking device. The headholder pins were well maintained without any evidence of motion. We were careful to maintain the patient's cervical spine and good neutral alignment and position throughout. The patient was prepped and draped in a normal standard fashion for his posterior cervical spine. An appropriate timeout and keystone protocol performed. We were able to proceed with the surgery. The local wound area was infiltrated with local anesthetic from C5 to C7. An incision was made at the midline of the posterior cervical spine from C6 to C7 over the appropriate levels. Dissection was taken down subcutaneously to the level of the the fascia was split over the midline and dissection was taken down over the spinous processes lamina and lateral masses at C6 7. I was able to take computer navigation images with fluoroscopic guidance and C-arm. As able get adequate lateral view of C7 and good view of C6 with good view of C6 7 anterior posterior views. The lateral masses and facet joints were exposed at C6 and C7. I was able to then position for the appropriate starting points for the lateral mass screws and pedicle screws. Using the navigation device was able to find good starting points at C6 and C7 bilaterally. A high-speed drill was used to establish the starting hole at C6 and C7 bilaterally. Position was again confirmed with navigation device and I was able to properly drill with a drill guide and hand drill for the lateral mass screws at C6 bilaterally and the pedicle screws at C7 bilaterally. I was able to check the drill holes with navigation guidance as well as with a ball-tipped feeler to get good for elilson and a good base for all 4 drill holes. With the drill holes establish and prepared for the decompression. I performed a decompression at C67 with accommodation of a high-speed bur curettes and Ke rrison rongeurs and pituitary rongeurs. Bilateral laminectomy was performed as well as partial colectomy. I had good central decompression. On the left IP particular tension to do wide foraminotomy. I was able to expose the neural foramen and what appeared to be a facet cyst wasn't significant compression of the area. The cyst and soft tissues removed and I sent some tissue for pathology of the decompression tissue. I was able get excellent central and bilateral foraminal decompression. The facet joints were decorticated to prepare for appropriate fusion. With the decompression complete the wound was irrigated suctioned dry. There is good hemostasis noted evidence of any dural tear or leak. We protected the decompression area and I was able place hardware at C6 and C7 bilaterally. Screws were placed in good alignment good position with excellent bony purchase at the lateral masses of C6 bilaterally in the pedicles of C7 bilaterally. With the screws intact I then placed rods bilaterally and Screws. The Screws were tightened down appropriately and good alignment and position. The construct was checked and found to be stable at C6 7. Intraoperative x-ray was taken which showed good alignment and position of the implants at the appropriate levels at C6 7. There was no evidence of any dural tear or leak. Good hemostasis was maintained. The wound was copiously irrigated and suctioned dry as had been done periodically throughout the case. Fascia layer was closed with #1 Vicryl The subcutaneous tissue was closed. The subcuticular tissue was closed with absorbable suture. The wound was cleaned and dried and dressed appropriately. A hard cervical collar was placed appropriately. The drapes were down and we prepared for transferring the patient back to supine position on his bed. The [place] head waiter was removed from the left device to the table and were able to roll the patient back to his hospital bed maintaining his head and neck in good neutral alignment and position. The Gupta head waiter was loosened and removed. There is no evidence of any soft tissue tear. The pinholes had good hemostasis without any evidence of, condition. The patient was woken up by anesthesia, extubated, transferred back gently to their hospital bed and brought to the recovery room in good stable condition. The patient will be admitted to the hospital for appropriate postoperative care, medical management and monitoring. We will continue to follow them closely about the postoperative course.
[2019-08-14] MEDS ORDERED: CALCIUM CARBONATE 500 MG CHEWABLE PO STA (16:13)
[2019-08-14] MEDS ORDERED: LORazepam 2 MG/ML INJ IV PRN ×3 (16:23)
[2019-08-14] MEDS ORDERED: MAG HYDROX/AL HYDROX/SIMETH 30 ML CUP PO PRN (16:24)
[2019-08-14] MEDS ORDERED: PANTOPRAZOLE 40 MG/10 ML VIAL IVP ONE (16:30)
[2019-08-14] MEDS: SODIUM CHLORIDE 0.9% 1,000 ML IV SCH (17:04)
[2019-08-14] MEDS: THIAMINE 100 MG TAB PO SCH (17:58)
[2019-08-14] MEDS: ALPRAZolam 0.25 MG TAB PO PRN (18:00)
--- NOTE | 2019-08-14 21:05 | CONS ---
CONSULTATION I am covering for Dr. Miller. DATE OF SERVICE: 08/14/2019 REASON FOR CONSULTATION: Advice regarding GERD and seizure disorder, requested by Dr. Delgado. HISTORY OF PRESENT ILLNESS: This 54-year-old gentleman with a past medical history of GERD, history of hard of hearing, history of EtOH abuse, history of colon cancer, history of bowel resection, being followed Dr. Perry Miller in the outpatient setting, was admitted for decompression laminectomy of foraminal fusion of C6-[address] Delgado. The patient is complaining of increasing heartburn. Otherwise, there is no history of any fever, rigor or chills, no history of headache, loss of consciousness, seizures at this time. PAST MEDICAL HISTORY: History of GERD, history of hard of hearing, musculoskeletal, seizures, history of alcohol abuse, bowel resection. HOME MEDICATIONS: Trazodone 50 mg at bedtime, Ultram 50 mg q.8 p.r.n., ibuprofen 400 mg q.6 p.r.n., Xanax 0.25 b.i.d. p.r.n. ALLERGIES: NONE. FAMILY HISTORY: History of lung problems in the family. SOCIAL HISTORY: History of smoking, THC, alcohol. REVIEW OF SYSTEMS: ENT: No diminished hearing. No diminished vision. CARDIOVASCULAR SYSTEM: No angina, palpitations. RESPIRATORY SYSTEM: No cough, hemoptysis. GI: As mentioned earlier. : No dysuria or retention. NERVOUS SYSTEM: No numbness, weakness. ALLERGY/IMMUNOLOGY: No asthma, hayfever. MUSCULOSKELETAL: As mentioned earlier. HEMATOLOGY/ONCOLOGY: No history of anemia. ENDOCRINE: No history of diabetes, hypothyroidism. CONSTITUTIONAL: As mentioned earlier. DERMATOLOGY: Negative. RHEUMATOLOGY: Negative. PSYCHIATRY: As mentioned earlier. PHYSICAL EXAMINATION: Patient alert and oriented x3. Pulse 94, blood pressure 139/81, respiration 20, temperature normal, pulse ox 94% on room air. HEENT: Conjunctivae normal. Oral mucosa moist. NECK: No jugular venous distention. No carotid bruit. No lymph node enlargement. Status post surgery. CARDIOVASCULAR SYSTEM: S1, S2 muffled. No S3. No S4. RESPIRATORY SYSTEM: Breath sounds diminished at the bases. No rhonchi. No crackles. ABDOMEN: Soft, non-tender. No mass palpable. LEGS: No edema. No swelling. NERVOUS SYSTEM: Higher functions as mentioned earlier. Moves all 4 limbs. No focal motor or sensory deficit. LYMPHATICS: No lymph node palpable in neck, axillae or groin. SKIN: No ulcer, rash, bleeding. JOINTS: No active deforming arthropathy. LABS: MCV 103.1. Otherwise, sodium 134, glucose 104, magnesium 1.5. ASSESSMENT: 1. Status post posterior cervical decompression laminectomy with foraminotomy, fusion of C6-7 for cervical degenerative joint disease. 2. Gastroesophageal reflux disease and heartburn. 3. History of hearing defects. 4. History of seizure disorder. 5. History of alcohol abuse. 6. History of colon cancer. 7. History of right lung cancer. 8. History of alcohol withdrawal syndrome. 9. History of bowel resection. 10.History of depression. 11.History of nicotine dependence. RECOMMENDATIONS AND DISCUSSION: In this 54-year-old gentleman who presented with multiple medical issues, we will monitor the patient closely, continue the current medications, continue symptomatic treatment. Resume the home medications. Protonix 40 IV b.i.d. for heartburn. Otherwise, I would also recommend CIWA protocol if there are signs of alcohol withdrawal. Will follow the patient closely with you. The patient may be asked to follow with Dr. Miller closely after discharge. Thank you, Dr. Delgado, for letting us participate in the care of this patient. MMODL / IJN: [id number] /
[2019-08-14] MEDS: PANTOPRAZOLE 40 MG/10 ML VIAL IVP SCH (22:28)
[2019-08-14] MEDS: traZODone HCL 50 MG TAB PO SCH (22:29)
[2019-08-15] MEDS: SODIUM CHLORIDE 0.9% 1,000 ML IV SCH ×3 (00:38→11:05)
[2019-08-15] MEDS: HYDROcodone/APAP 5-325MG 1 EACH TAB PO PRN ×5 (03:30→20:18)
[2019-08-15] MEDS: LACTATED RINGERS 1,000 ML IV SCH (06:26)
[2019-08-15] MEDS: ALPRAZolam 0.25 MG TAB PO PRN (06:29)
[2019-08-15] MEDS: THIAMINE 100 MG TAB PO SCH ×2 (08:31→16:51)
[2019-08-15] MEDS: SENNOSIDES-DOCUSATE SODIUM 1 EACH TAB PO SCH (08:32)
[2019-08-15] MEDS: PANTOPRAZOLE 40 MG/10 ML VIAL IVP SCH (08:32)
--- NOTE | 2019-08-15 09:58 | P.PN ---
Progress Note - Text Progress Note Date: 08/15/19 Postoperative day #1 Patient is seen and examined today at bedside. The patient has some pain around the surgical site as expected. Pain is being controlled with medication. He feels some of the pain toward his left shoulder may have improved but is still sore. He does not feel he has gained strength and his left upper extremity or shoulder. He says they had to change the dressing at the back was neck overnight. He is tolerating his diet and he is voiding freely. P hysical Exam Afebrile with stable vital signs Abdomen is soft nontender. Chest has good excursion deep and space expiration The incision site has some serosanguineous drainage at the midpoint and superior aspect. There is no dehiscence. No erythema there is no purulence. there is no significant swelling. The dressing was soaked changed at bedside. Extremities have not had neurologic change from prior to surgery. he still has significant weakness of his left lower extremity and shoulder. Calves and thighs were soft nontender without evidence of DVT. Assessment/Plan Postoperative day #1 status post posterior cervical decompression C6 7 with fusion C6 7 history of regular alcohol use Patient is progressing as expected from the surgery. we've not seen significant change in his neurologic status and certainly this may take a significant point amount of time before we see any change. There is still some drainage from the wound site itself. And I think it is bit too much to let him go today. We need to monitor his wound drainage site at least overnight tonight. With the drainage would like to keep him on IV antibiotics for at least another 24 hours we will order that. we should place ice over the area as well. Hopefully he'll be okay for discharge home tomorrow if his wound is clearing up. He is not complaining of any anxiety or does not display any withdrawal symptoms. We will continue to monitor along with medicine. We will continue to increase the patient's mobilization with therapy. We will continue pain control with oral or IV medications. We'll continue to follow patient closely.
[2019-08-15] MEDS: PANTOPRAZOLE 40 MG TABLET PO SCH (18:04)
--- NOTE | 2019-08-15 20:05 | PN ---
PROGRESS NOTE I am covering for Dr. Miller. DATE OF SERVICE: 08/15/2019 This 54-year-old gentleman admitted after cervical surgery is being closely monitored. The patient complains of some pain at this time. No chest pain. No palpitations. No fever. PHYSICAL EXAMINATION: Alert and oriented x3. Pulse 70, blood pressure 117/68, respirations 18, temperature 98.3, pulse ox 96% on room air. HEENT: Conjunctivae normal. NECK: No jugular venous distention. CARDIOVASCULAR SYSTEM: S1, S2 muffled. RESPIRATORY SYSTEM: Breath sounds diminished at the bases. No rhonchi. No crackles. ABDOMEN: Soft, non-tender. LEGS: No edema. No swelling. EXAMINATION OF THE NECK: Status post surgery. LABS: Not available. ASSESSMENT: 1. Status post posterior cervical decompression laminectomy with foraminectomy fusion C6-7 for cervical degenerative joint disease. 2. Gastroesophageal reflux disease. 3. History of hearing defects. 4. History of seizure disorder. 5. History of alcohol abuse. 6. History of colon cancer. 7. History of right lung cancer. 8. History of alcohol withdrawal syndrome. 9. History of bowel resection. 10.History of depression. 11.History of nicotine dependence. RECOMMENDATIONS AND DISCUSSION: I recommend to continue current medications, continue symptomatic treatment. Otherwise continue with the Protonix; may be converted to p.o. now. Otherwise, continue the rest of the medications. Ativan p.r.n. Rest of the rest of the recommendations per Orthopedic Surgery. Further recommendations to follow. MMODL / IJN: [id number] /
[2019-08-15] MEDS: traZODone HCL 50 MG TAB PO SCH (20:18)
[2019-08-15] MEDS: HYDROmorphone 0.5 MG/0.5 ML SYRINGE IVP PRN (20:19)
[2019-08-16] MEDS ORDERED: HYDROcodone/APAP 7.5-325MG 1 EACH TAB PO PRN (00:04)
[2019-08-16] MEDS: HYDROcodone/APAP 7.5-325MG 1 EACH TAB PO PRN ×2 (00:21→10:18)
[2019-08-16 01:59] VITALS: PULSE 75; TEMP 98.3
[2019-08-16] MEDS: LACTATED RINGERS 1,000 ML IV SCH (05:46)
[2019-08-16] MEDS: HYDROmorphone 0.5 MG/0.5 ML SYRINGE IVP PRN (06:20)
[2019-08-16 07:28] VITALS: BP 145/82; RESP 15
[2019-08-16] MEDS: PANTOPRAZOLE 40 MG TABLET PO SCH (07:42)
[2019-08-16] MEDS: SENNOSIDES-DOCUSATE SODIUM 1 EACH TAB PO SCH (07:42)
[2019-08-16] MEDS: THIAMINE 100 MG TAB PO SCH (07:42)
--- NOTE | 2019-08-16 09:21 | P.DS ---
Providers Date of admission: 08/14/19 07:52 Expected date of discharge: 08/16/19 Attending physician: Nayeli Delgado Consults: 08/14/19 12:03 Consult Physician Routine Consulting Provider: Carrington Stark Consult Reason/Comments: medical management, ETOH withdrawl Do you want consulting provider notified?: Yes Primary care physician: Perry Miller - Discharge Diagnosis(es) (1) Cyst of cervical facet joint Current Visit: Yes Status: Acute (2) Cervicalgia Current Visit: Yes Status: Acute (3) Left arm weakness Current Visit: Yes Status: Acute (4) Radiculopathy affecting upper extremity Current Visit: Yes Status: Acute (5) Left anterior shoulder pain Current Visit: Yes Status: Acute (6) Cervical spinal stenosis Current Visit: Yes Status: Acute (7) Current every day smoker Current Visit: Yes Status: Acute (8) Alcohol use Current Visit: Yes Status: Acute (9) Hyperlipidemia Current Visit: Yes Status: Acute (10) History of colon cancer Current Visit: Yes Status: Acute (11) History of lung cancer Current Visit: Yes Status: Acute Hospital Course: This is a pleasant 54-year-old male who presented with C6-7 cervical stenosis, C6-7 facet cyst with neural compression, cervicalgia, left upper extremity weakness with radiculopathy who failed outpatient conservative therapy. He was admitted for a C6-7 posterior lateral decompression and fusion. The patient tolerated the procedure well and did well postoperatively. Initially he was having some difficulty with increased drainage from the surgical site. This has improved since yesterday. He is having some slow drainage from the superior po rtion of the incision. He does continue to have pain at his surgical site. He feels his pain has been better controlled with a modification to his pain medications. He does feel he would be ready for discharge home today with medications. He has continued his antibiotic IV regimen as prescribed. He is eating and voiding without difficulty. He does feel he has had some slight increased range of motion of the left shoulder but continues to have significant weakness. He continues to have some pain over the anterior left shoulder. He denies other specific upper extremity radiculopathy symptoms bilaterally. He denies any right upper extremity weakness. Condition on day of discharge stable. Patient will be discharged home. Patient was cleared preoperatively for surgery by Dr. Miller. Patient currently denies any nausea, vomiting, fever, or chills. We discussed patient should keep his hard cervical collar intact at all times. He does have some bloody drainage on his current hard cervical collar. We will plan to obtain a new hard cervical collar and will plan to have this placed prior to discharge home. We discussed seemingly take his current hard cervical collar home and may shower with that particular hard collar intact. He should keep his surgical site clean, dry, and intact. He may continue with daily dressing changes as needed. We will plan to have him follow-up in the outpatient setting in approximately 1 week for further evaluation. Patient should refrain from driving until at least after their first follow-up appointment in the office. Patient should avoid excessive neck flexion, extension, rotation, and lateral sidebending; no overhead lifting; no lifting greater than 10 pounds. Patient does have a medical history which includes hyperlipidemia, colon cancer, and lung cancer. He also is a daily tobacco user and consumes alcohol frequently. He is not experiencing any withdrawal symptoms from alcohol during his admission to the hospital. MAPS has been reviewed today, 08/16/2019, with an Overall Overdose Risk Score of 190 and a narcotic risk score of 340. An "Opiod Start Talking" Form has been signed and placed in the patient's chart. A prescription has been written for Glendo 7.5 mg/325 mg 1-2 tabs every 4 hours as needed for pain, dispensed #84. Patient should avoid anti-inflammatories over the next 6 weeks postoperatively. Patient should currently discontinue previously prescribed Motrin, Xanax, and Ultram as previously prescribed while taking Glendo and Flexeril. Patient is also given a prescription for Keflex 500 mg 1 tab 4 times a day, dispensed #28. We discussed take this prescription until completion. Patient is given a prescription for Flexeril 10 mg 1 tab 3 times a day as needed for muscle spasm, dispensed #60. Physical Exam on day of discharge: Patient is awake, alert, and oriented 3 Vital signs stable Good chest excursion with deep inspiration and expiration Abdomen soft nontender No signs or symptoms of DVT; no calf pain Dressing is removed over the posterior cervical spine Mild bruising around the surgical site No significant swelling around the surgical site Slight bloody drainage from the superior portion of the incision site No obvious purulent discharge from the surgical site Nanda intact over the incision Significant pain on palpation around the surgical site Hard collar is removed during physical examination reapplied Dressing is reapplied Allopathic Doctor strength, thumb strength, interosseous strength, biceps strength, triceps strength, and shoulder strength positive sustained on the right Allopathic Doctor strength, thumb strength, interosseous strength, biceps strength, and triceps strength positive sustained on the right Significant weakness with active range of motion of the left shoulder Pain with palpation of the anterior left shoulder Procedures: C6-7 posterior lateral decompression and fusion Patient Condition at Discharge: Stable Plan - Discharge Summary Discharge Rx Participant: Yes New Discharge Prescriptions: New Cyclobenzaprine [Flexeril] 10 mg PO TID PRN #60 tab PRN Reason: Muscle Spasm Cephalexin [Keflex] 500 mg PO Q6HR #28 cap HYDROcodone/APAP 7.5-325MG [[place] 7.5-325] 1 - 2 tab PO Q4H PRN 7 Days #84 tab PRN Reason: Pain No Action Ibuprofen [Motrin Ib] 400 mg PO Q6H PRN PRN Reason: Pain traMADol HCL [Ultram] 50 mg PO Q8HR PRN PRN Reason: Pain ALPRAZolam [Xanax] 0.25 mg PO BID PRN PRN Reason: Anxiety traZODone HCL 50 mg PO HS Discharge Medication List Ibuprofen [Motrin Ib] 400 mg PO Q6H PRN 08/07/19 [History] ALPRAZolam [Xanax] 0.25 mg PO BID PRN 08/08/19 [History] traMADol HCL [Ultram] 50 mg PO Q8HR PRN 08/08/19 [History] traZODone HCL 50 mg PO HS 08/08/19 [History] Cephalexin [Keflex] 500 mg PO Q6HR #28 cap 08/16/19 [Rx] Cyclobenzaprine [Flexeril] 10 mg PO TID PRN #60 tab 08/16/19 [Rx] HYDROcodone/APAP 7.5-325MG [[place]endo 7.5-325] 1 - 2 tab PO Q4H PRN 7 Days #84 tab 08/16/19 [Rx] Follow up Appointment(s)/Referral(s): Nayeli Delgado DO [Doctor of Osteopathic Medicine] - 08/30/19 2:15 pm Activity/Diet/Wound Care/Special Instructions: 1. Patient may try keep dressing over the posterior cervical spine clean, dry, intact 2. Patient may continue with daily dressing changes as needed 3. Keep surgical site dry while bathing 4. Patient should refrain from driving until at least after their first follow- up appointment in the office. 5. Patient should avoid excessive cervical flexion, extension, rotation, and sidebending; no overhead lifting; no lifting greater than 10 pounds 6. Take medications as prescribed 7. Do not soak in tub Discharge Disposition: HOME SELF-CARE
--- NOTE | 2019-08-16 20:22 | PN ---
PROGRESS NOTE DATE OF SERVICE: 08/16/2019 This 54-year-old gentleman admitted after neck surgery is being closely monitored. No chest pain. No palpitations. No fever. The patient has significant GERD, which is improving at this time. No chest pain. No palpitations. No fever. PHYSICAL EXAMINATION: Alert and oriented x3. Pulse is 75. Blood pressure 130/78. Respirations 18. Temp 98.3, pulse ox 98% on room air. HEENT: Conjunctivae normal. NECK: No JVD. CARDIOVASCULAR: S1, S2 muffled. RESPIRATORY: Breath sounds diminished in the bases. No rhonchi. No crackles. ABDOMEN soft, nontender. LEGS are no edema. No swelling. CENTRAL NERVOUS SYSTEM: No focal deficits. Neck status post surgery. LABS: Not available. ASSESSMENT: 1. Status post posterior cervical decompression laminectomy and foraminectomy fusion C6-7 with cervical degenerative joint disease. 2. Gastroesophageal reflux disease. 3. History of hearing defects. 4. History of seizure disorder. 5. History of alcohol abuse. 6. History of colon cancer. 7. History of right lung cancer. 8. History of alcohol withdrawal syndrome. 9. History of bowel resection. 10.History of depression. 11.History of nicotine dependence. RECOMMENDATIONS AND DISCUSSION: Recommend to continue current medications, continue to monitor and symptomatic treatment. Otherwise, at this time, I recommend continue with continue with current medications, continue symptoms. Incentive spirometry. Closely follow with the primary physician Dr. Miller in the outpatient setting. Further recommendations to follow. Est of the recommendations per orthopedic surgery. MMODL / IJN: [id number] /
== END 2019-08-16 13:44 | disposition home or self-care (01) | DRG 473 ==
LOC: 2ORMAIN 07:52 → 4SSUR 11:46 → EDSTATUS 12:15
PROVIDERS: ADMIT Orthopaedic Surgery Orthopaedic Surgery of the Spine; ATTEND Orthopaedic Surgery Orthopaedic Surgery of the Spine
PROC: 0RB30ZZ Excision of Cervical Vertebral Disc, Open Approach (ICD-10-PCS; 2019-08-14)
PROC: 01N10ZZ Release Cervical Nerve, Open Approach (ICD-10-PCS; 2019-08-14)
PROC: 0RG1071 Fusion of Cervical Vertebral Joint with Autologous Tissue Substitute, Posterior Approach, Posterior Column, Open Approach (ICD-10-PCS; principal; 2019-08-14 08:30)
DX: M48.02 Spinal stenosis, cervical region (principal); M71.38 Other bursal cyst, other site; K21.9 Gastro-esophageal reflux disease without esophagitis; G40.909 Epilepsy, unspecified, not intractable, without status epilepticus; H91.90 Unspecified hearing loss, unspecified ear; F17.210 Nicotine dependence, cigarettes, uncomplicated; M47.22 Other spondylosis with radiculopathy, cervical region; F32.9 Major depressive disorder, single episode, unspecified; F10.10 Alcohol abuse, uncomplicated; E78.5 Hyperlipidemia, unspecified; Z90.49 Acquired absence of other specified parts of digestive tract; Z85.038 Personal history of other malignant neoplasm of large intestine; Z79.899 Other long term (current) drug therapy; Z85.118 Personal history of other malignant neoplasm of bronchus and lung; Z98.890 Other specified postprocedural states; Z83.6 Family history of other diseases of the respiratory system
CPT/HCPCS: 72020; 88305

== ENCOUNTER → 2020-01-07 | Outpatient (CLI) | payer MEDICARE, OTHER ==
--- NOTE | 2020-01-07 11:03 | CT ---
EXAMINATION TYPE: CT chest w con DATE OF EXAM: 01/07/2020 COMPARISON: 10/26/2017 HISTORY: 54-year-old male COPD, J44.9, Right sided pain post fall 3 days ago TECHNIQUE: Contiguous axial scanning of the chest after the administration of 100 mL of Isovue 300. Coronal/sagittal reconstructions performed. CT DLP: 278.8mGycm. Automatic exposure control utilized for a dose reduction. FINDINGS: Heart normal size without pericardial effusion. Extensive three-vessel coronary artery calcifications are present. Ascending aorta mildly aneurysmal at 4.0 cm versus 3.8 cm, previously. Conventional branching anatomy . No thoracic lymph adenopathy by CT size criteria. Mild bilateral gynecomastia. Mild emphysematous change. Mild scattered interstitial scarring suggested along the anterior mid lung s. Minimal scattered paraseptal emphysema. No consolidation or pleural effusion. Small hiatal hernia. Stable wedge-shaped hypervascularity along the posterior right upper abdomen suggesting area of vascu lar shunting. Moderate arthroscopic calcifications and plaque within the infrarenal abdominal aorta. Bones: Partially visualized posterior cervical fusion hardware. Mild degenerative disc disease in the thoracic spine. No displaced rib fracture seen. IMPRESSION: 1. CAD with extensive three-vessel coronary artery calcifications. 2. Mild ascending aortic aneurysm at 4.0 cm versus 3.8 cm in 2018. 3. COPD with mild emphysema. Trace scattered interstitial scarring/fibrosis. 4. No acute pulmonary process. 5. Small hiatal hernia.
== END | disposition home or self-care (01) ==
LOC: RADCTMAIN 10:09
PROVIDERS: ATTEND Family Medicine
DX: I25.10 Atherosclerotic heart disease of native coronary artery without angina pectoris (principal); J43.9 Emphysema, unspecified
CPT/HCPCS: 71260; Q9967

== ENCOUNTER 2020-04-29 07:13 | Inpatient (IN) | payer MEDICARE, OTHER ==
--- NOTE | 2020-04-29 07:39 | ED ---
General Adult HPI - General Chief complaint: Dizziness Stated complaint: Dizziness Time Seen by Provider: 04/29/20 07:15 Source: patient, EMS, RN notes reviewed, old records reviewed Mode of arrival: EMS Limitations: no limitations - History of Present Illness Initial comments: This a 55-year-old male who presents emergency Department with a past medical history significant for lung cancer and a partial pneumonectomy for years ago. Patient also states he has a history of colon cancer some 13 or 14 years ago. Patient states he drinks daily and smokes. Patient comes in today because he states he is off balance though he is chronically off balance. Patient denies any headache. Patient denies any head trauma. Patient denies any numbness or weakness. Patient denies chest pain difficulty breathing or shortness of breath. Patient denies any abdominal pain patient denies nausea vomiting diarrhea. Patient denies any recent fever or chills. - Related Data Home Medications Medication Instructions Recorded Confirmed Ibuprofen [Motrin Ib] 400 mg PO Q6H PRN 08/07/19 08/14/19 ALPRAZolam [Xanax] 0.25 mg PO BID PRN 08/08/19 08/14/19 traMADol HCL [Ultram] 50 mg PO Q8HR PRN 08/08/19 08/14/19 traZODone HCL 50 mg PO HS 08/08/19 08/14/19 Previous Rx's Medication Instructions Recorded Cephalexin [Keflex] 500 mg PO Q6HR #28 cap 08/16/19 Cyclobenzaprine [Flexeril] 10 mg PO TID PRN #60 tab 08/16/19 HYDROcodone/APAP 7.5-325MG [[place] 1 - 2 tab PO Q4H PRN 7 Days #84 tab 08/16/19 7.5-325] Allergies Allergy/AdvReac Type Severity Reaction Status Date / Time No Known Allergies Allergy Verified 04/29/20 07:15 Review of Systems ROS Statement: Those systems with pertinent positive or pertinent negative responses have been documented in the HPI. ROS Other: All systems not noted in ROS Statement are negative. Past Medical History Past Medical History: Cancer, GERD/Reflux, Hearing Disorder / Deafness, Musculoskeletal Disorder, Seizure Disorder Additional Past Medical History / Comment(s): Hx Alcohol abuse, hx of colon CA 2005, Rt lung CA 2012 . [place], tinnitus. Prob w/ lt shoulder/neck w/ cervical disc prob, NT lt arm. Poss seizure hx, adm 04/2019 D/T alcohol withdrawal w/ Sx. Varicose veins. History of Any Multi-Drug Resistant Organisms: None Reported Past Surgical History: Bowel Resection, Hernia Repair, Orthopedic Surgery Additional Past Surgical History / Comment(s): Lung biopsy + for CA, partial resection. Colon CA w/ partial colectomy. ORIF Rt ankle. Hiatal hernia surg x2. Past Anesthesia/Blood Transfusion Reactions: No Reported Reaction Past Psychological History: Depression Smoking Status: Current every day smoker Past Alcohol Use History: Abuse, Daily Past Drug Use History: Marijuana - Past Family History Mother Family Medical History: Cancer Father Family Medical History: Respiratory Disorder Additional Family Medical History / Comment(s): "couldn't breath, lung problem" General Exam - General Exam Comments Initial Comments: GENERAL: Patient is well-developed and well-nourished. Patient is nontoxic and well- hydrated and is in no acute distress. ENT: Neck is soft and supple. No significant lymphadenopathy is noted. Oropharynx is clear. Moist mucous membranes. Neck has full range of motion without eliciting any pain. EYES: The sclera were anicteric and conjunctiva were pink and moist. Extraocular movements were intact and pupils were equal round and reactive to light. Eyelids were unremarkable. PULMONARY: Unlabored respirations. Good breath sounds bilaterally. No audible rales rhonchi or wheezing was noted. CARDIOVASCULAR: There is a regular rate and rhythm without any murmurs gallops or rubs. ABDOMEN: Soft and nontender with normal bowel sounds. SKIN: Skin is clear with no lesions or rashes and otherwise unremarkable. NEUROLOGIC: Patient is alert and oriented x3. Cranial nerves II through XII are grossly intact. Motor and sensory are also intact. Normal speech, volume and content. Symmetrical smile. MUSCULOSKELETAL: Normal extremities with adequate strength and full range of motion. No lower extremity swelling or edema. No calf tenderness. LYMPHATICS: No significant lymphadenopathy is noted PSYCHIATRIC: Normal psychiatric evaluation. Limitations: no limitations Course Vital Signs 04/29/20 04/29/20 04/29/20 07:15 07:19 07:58 Temperature 98.2 F Pulse Rate 96 95 Respiratory 16 18 Rate Blood Pressure 171/114 156/93 118/67 O2 Sat by Pulse 99 100 Oximetry Medical Decision Making - Medical Decision Making EKG shows sinus rhythm at 87 bpm [place] interval is 218 QRS is 92 QT interval 360 QTC is 433. EKG shows no ST segment elevation or depression. Chest x-ray showed no acute abnormality. New. Patient was highly intoxicated. I spoke with Dr. Miller he agreed to admit the patient admitted the patient wrote admitting orders. - Lab Data Result diagrams: 04/29/20 07:48 04/29/20 07:48 Lab Results 04/29/20 04/29/20 Range/Units 07:48 07:48 WBC 3.7 L (3.8-10.6) k/uL RBC 4.21 L (4.30-5.90) m/uL Hgb 15.7 (13.0-17.5) gm/dL Hct 45.5 (39.0-53.0) % MCV 108.1 H (80.0-100.0) fL MCH 37.2 H (25.0-35.0) pg MCHC 34.5 (31.0-37.0) g/dL RDW 12.7 (11.5-15.5) % Plt Count 128 L (150-450) k/uL Neutrophils % 62 % Lymphocytes % 19 % Monocytes % 7 % Eosinophils % 9 % Basophils % 2 % Neutrophils # 2.3 (1.3-7.7) k/uL Lymphocytes # 0.7 L (1.0-4.8) k/uL Monocytes # 0.3 (0-1.0) k/uL Eosinophils # 0.3 (0-0.7) k/uL Basophils # 0.1 (0-0.2) k/uL Macrocytosis Moderate Sodium 140 (137-145) mmol/L Potassium 4.2 (3.5-5.1) mmol/L Chloride 107 (98-107) mmol/L Carbon Dioxide 22 (22-30) mmol/L Anion Gap 11 mmol/L BUN 11 (9-20) mg/dL Creatinine 0.63 L (0.66-1.25) mg/dL Est GFR (CKD-EPI)AfAm >90 (>60 ml/min/1.73 sqM) Est GFR (CKD-EPI)NonAf >90 (>60 ml/min/1.73 sqM) Glucose 92 (74-99) mg/dL Calcium 8.9 (8.4-10.2) mg/dL Magnesium 1.3 L (1.6-2.3) mg/dL Total Bilirubin 0.8 (0.2-1.3) mg/dL AST 125 H (17-59) U/L ALT 68 H (4-49) U/L Alkaline Phosphatase 52 (38-126) U/L Total Protein 7.2 (6.3-8.2) g/dL Albumin 4.5 (3.5-5.0) g/dL Valproic Acid <10.0 ug/mL Serum Alcohol 373 H* mg/dL Disposition Clinical Impression: Alcohol intoxication Disposition: ADMITTED IP TO THIS HOSP Referrals: Perry Miller MD [Primary Care Provider] - 1-2 days Time of Disposition: 09:14
[2020-04-29 08:01] LABS: Basophils # (A) 0.1 k/uL (0-0.2); Basophils % (A) 2 %; Eosinophils # (A) 0.3 k/uL (0-0.7); Eosinophils % (A) 9 %; HCT 45.5 % (39.0-53.0); HGB 15.7 gm/dL (13.0-17.5); Lymphocytes # (A) 0.7 k/uL (1.0-4.8); Lymphocytes % (A) 19 %; MCH 37.2 pg (25.0-35.0); MCHC 34.5 g/dL (31.0-37.0); MCV 108.1 fL (80.0-100.0); Macrocytosis Moderate; Mean Platelet Volume 7.1; Monocytes # (A) 0.3 k/uL (0-1.0); Monocytes % (A) 7 %; Neutrophils # (A) 2.3 k/uL (1.3-7.7); Neutrophils % (A) 62 %; Platelet Count 128 k/uL (150-450); RBC 4.21 m/uL (4.30-5.90); RDW 12.7 % (11.5-15.5); WBC 3.7 k/uL (3.8-10.6)
[2020-04-29 08:13] LABS: ALT 68 U/L (4-49); AST 125 U/L (17-59); African American GFR (CKD) >90 (>60 ml/min/1.73 sqM); Albumin 4.5 g/dL (3.5-5.0); Alkaline Phosphatase 52 U/L (38-126); Anion Gap 11 mmol/L; Blood Urea Nitrogen 11 mg/dL (9-20); Calcium 8.9 mg/dL (8.4-10.2); Carbon Dioxide 22 mmol/L (22-30); Chloride 107 mmol/L (98-107); Glucose 92 mg/dL (74-99); Magnesium 1.3 mg/dL (1.6-2.3); Non-African American GFR(CKD) >90 (>60 ml/min/1.73 sqM); Sodium 140 mmol/L (137-145); Total Bilirubin 0.8 mg/dL (0.2-1.3); Total Protein 7.2 g/dL (6.3-8.2)
[2020-04-29 08:18] LABS: Valproic Acid (Depakene) <10.0 ug/mL
[2020-04-29 08:45] LABS: Alcohol 373 mg/dL; Potassium 4.2 mmol/L (3.5-5.1)
--- NOTE | 2020-04-29 09:01 | XR ---
EXAMINATION TYPE: XR chest 2V DATE OF EXAM: 04/29/2020 CLINICAL HISTORY: Difficulty breathing . TECHNIQUE: Frontal and lateral view of the chest. COMPARISON: 08/10/2019 chest radiograph FINDINGS: The cardiomediastinal silhouette is within normal limits for size. Pulmonary vasculature i s normal. There is no focal air space opacity, pleural effusion, or pneumothorax seen. The osseous st ructures are intact. IMPRESSION: No acute cardiopulmonary process.
[2020-04-29] MEDS ORDERED: SODIUM CHLORIDE 0.9% 1,000 ML IV ONE ×2 (09:15→09:16)
[2020-04-29] MEDS ORDERED: LORazepam 2 MG/ML INJ IV PRN ×3 (09:16)
[2020-04-29] MEDS ORDERED: THIAMINE 100 MG/ML 2 ML VIAL IM STA (09:16)
[2020-04-29] MEDS ORDERED: SODIUM CHLORIDE 0.9% 1,000 ML with MVI, ADULT NO.4 WITH VIT K 10 ML, THIAMINE 100 MG, F... IV ONE ×4 (09:30)
[2020-04-29] MEDS: MAGNESIUM SULFATE-D5W PMX 1 GM in DEXTROSE/WATER 1 100ML.BAG IVPB SCH ×2 (09:32→11:10)
[2020-04-29] MEDS ORDERED: ALPRAZolam 0.25 MG TAB PO PRN (16:33)
--- NOTE | 2020-04-29 16:48 | HP ---
HISTORY AND PHYSICAL This patient is a 55-year-old white male who presents with a significant history of lung cancer, partial pneumonectomy years ago, history of colon cancer 12-13 years ago. He drinks and smokes daily. He comes in because he is chronically off balance and has headache. Denies any head trauma or any numbness or weakness. He denies any abdominal pain, nausea, vomiting, diarrhea. HOME MEDICINES: 1. Xanax 0.25 b.i.d. 2. Tramadol 50 q.8. 3. Trazodone 50 at night. 4. Motrin 400 q.6. 5. Keflex 500 q.6. 6. Flexeril 10 mg t.i.d. 7. [place] 7.5 q.4 p.r.n. ALLERGIES: NEGATIVE. REVIEW OF SYSTEM: Fourteen-point review of systems negative except for mentioned in HPI. PAST MEDICAL HISTORY: GERD, cancer, hearing disorder, deafness, musculoskeletal disorder, seizure disorder, alcohol abuse, colon cancer 2005, right lung cancer 2012, tinnitus, cervical disc disease, shoulder disorder, alcohol withdrawal, status post varicose veins, bowel resection, hernia repair, orthopedic surgery, lung biopsy for possible cancer, partial resection, colon cancer, partial colectomy, ORIF for an ankle, hiatal hernia surgery, depression. Current everyday smoker. Heavy alcohol abuse and marijuana. Mother with cancer. Father with respiratory disorder. PHYSICAL EXAMINATION: Vital signs reviewed. He is thin, cachectic. No acute distress. Nontoxic-appearing. HEAD AND NECK: Supple. No lymphadenopathy. Pupils equal, round and reactive. LUNGS: Decreased breath sounds. Otherwise clear. HEART: S1, S2. ABDOMEN: Soft, nontender. SKIN: No rashes, excoriations or bruising. NEUROLOGIC: Cranial nerves are intact. MUSCULOSKELETAL: Full range of motion. No extremity weakness. No calf tenderness. PSYCHIATRIC: Normal psych evaluation. Temperature 98.2, pulse 90 to 95, respiratory rate 16 to 18, blood pressure 118 to 170s over 60s to 100. EKG sinus rhythm. Chest x-ray is negative. He is highly intoxicated. ASSESSMENT: 1. penia. 2. Severe dehydration. 3. Alcohol intoxication. 4. Liver enzyme elevation secondary to alcohol abuse. Serum alcohol level is 373. PLAN: [facility] protocol. Admit him. Monitor electrolytes. Alcohol cessation counseling given. MMODL / IJN: [id number] /
[2020-04-29] MEDS: GABAPENTIN 400 MG CAP PO SCH ×2 (17:42→21:44)
[2020-04-29] MEDS: THIAMINE 100 MG TAB PO SCH (17:42)
--- NOTE | 2020-04-29 20:02 | P.CNNES ---
History of Present Illness Consult date: 04/29/20 Requesting physician: Perry Miller Reason for Consult: Neck pain History of Present Illness: Patient is a 55-year-old left-handed male with long-standing history of alcoholism came to the hospital for worsening balance and equilibrium. Patient states that he had history of cervical surgery in August 2019 after he d eveloped acute weakness of left arm in 2018. He did he have some rotator cuff problem, but MRI of the cervical spine showed some disc disease. After the surgery he was able to lift his arm, took 3 months to get the feeling back. He has residual numbness and tingling of the right hand fingers except the little finger. He does have chronic pain in the neck since the surgery as well. He states the screws also hurt. Patient states that he has been having progressive problems with balance in the last 3 months particularly in the last 1-1/2 month. He feels he has no balance, waddles. Cannot balance on 1 leg. Patient has hypertension denies diabetes. Smokes one pack per day for 40 years. Patient also drinks 8 beers per day, does not drink any hard liquor. He has been drinking a beer per day almost whole life since age 18. Denies any drug use. Patient has history of colon cancer at age 41 for which he underwent 12 sessions of chemotherapy and 12 radiation treatment. He has developed peripheral neuropathy since his chemotherapy. He has numbness from toes up to below knees. He had colostomy, that was reversed subsequently. About 8 years ago he also had right lung cancer, that was treated by right lower lobe resection. No chemo or radiation performed for this. He has history of right ankle fusion. Patient's blood test shows WBC 3.7 hemoglobin 15.7 with elevated MCV 108.1. Platelets 128. Chem-7 is normal, AST is 125, ALT 68, blood alcohol level 373. Chest x-ray showed no acute cardiopulmonary process. EKG with sinus rhythm and first-degree AV block. Review of Systems As above in detail. All other review of systems reviewed and unremarkable. Patient does have matting of the eyes. Denies risk factor for HIV. Patient has sexual dysfunction, since he had undergone radiation therapy. Patient has balance issues. Denies nausea vomiting diarrhea. Past Medical History Past Medical History: Cancer, GERD/Reflux, Hearing Disorder / Deafness, Musculoskeletal Disorder, Seizure Disorder Additional Past Medical History / Comment(s): Hx Alcohol abuse, hx of colon CA 2005, Rt lung CA 2012 . HUSLIA, tinnitus. Prob w/ lt shoulder/neck w/ cervical disc prob, NT lt arm. Poss seizure hx, adm 04/2019 D/T alcohol withdrawal w/ Sx. Varicose veins. History of Any Multi-Drug Resistant Organisms: None Reported Past Surgical History: Bowel Resection, Hernia Repair, Orthopedic Surgery Additional Past Surgical History / Comment(s): Lung biopsy + for CA, partial resection. Colon CA w/ partial colectomy. ORIF Rt ankle. Hiatal hernia surg x2. Past Anesthesia/Blood Transfusion Reactions: No Reported Reaction Past Psychological History: Depression Smoking Status: Current every day smoker Past Alcohol Use History: Abuse, Daily Additional Past Alcohol Use History / Comment(s): Smoking since age 15 (quit for 8 years once), was 1 ppd, 5 beers daily Past Drug Use History: Marijuana Additional Drug Use History / Comment(s): uses at HS few times per wk - Past Family History Mother Family Medical History: Cancer Father Family Medical History: Respiratory Disorder Additional Family Medical History / Comment(s): "couldn't breath, lung problem" Medications and Allergies Home Medications Medication Instructions Recorded Confirmed Type ALPRAZolam [Xanax] 0.25 mg PO BID PRN 08/08/19 04/29/20 History Divalproex Sodium [Depakote] 500 mg PO BID 04/29/20 04/29/20 History Gabapentin [Neurontin] 800 mg PO QID 04/29/20 04/29/20 History HYDROcodone/APAP 7.5-325MG [[place] 1 tab PO TID PRN 04/29/20 04/29/20 History 7.5-325] amLODIPine [Norvasc] 5 mg PO DAILY 04/29/20 04/29/20 History Allergies Allergy/AdvReac Type Severity Reaction Status Date / Time No Known Allergies Allergy Verified 04/29/20 09:30 Physical Examination - Vital Signs Vital Signs: Vital Signs Temp Pulse Pulse Resp BP BP Pulse Ox 04/29/20 17:18 98.9 F 96 14 167/94 97 04/29/20 16:08 82 18 157/93 100 04/29/20 13:35 97.9 F 78 18 124/68 97 04/29/20 11:11 89 16 150/95 100 04/29/20 09:34 94 18 148/97 98 04/29/20 07:58 95 18 118/67 100 04/29/20 07:19 156/93 04/29/20 07:15 98.2 F 96 16 171/114 99 Intake and Output 04/29/20 04/29/20 04/29/20 06:59 14:59 22:59 Other: # Voids 1 Weight 81.647 kg 81.647 kg On examination patient is a middle aged male, in no acute distress. Patient is alert and awake fairly well oriented. Speech and language functions are normal. Attention and concentration fund of knowledge is adequate. Patient is slightly tremulous. On cranial exam examination pupils are round and reactive to light, visual phan are full on confrontation, extraocular muscles are intact with very mild nystagmus. Face is symmetric, tongue protrudes the midline. Palatal elevation and sensation normal. Hearing and shoulder shrug normal. He has matting of the eyes. Facial sensations normal. On muscle str ength testing there is no pronator drift and the strength is normal in arms and legs distally and proximally. Reflexes are right/left, biceps 2/0, brachioradialis 1/0, triceps 1/2, knee 2+/2+, ankles 0/0, plantars are possibly upgoing bilaterally. Sensory touch is equal. He has very mild ataxia for gifqfu-ic-yvli and ezvo-fn-xvux testing bilaterally. Tone and bulk of muscles normal. Gait deferred. On general examination there is no carotid bruit or murmur, peripheral pulses are present. No edema. Chest is clear, abdomen is soft nontender. Results - Laboratory Findings CBC and BMP: 04/29/20 07:48 04/29/20 07:48 Abnormal Lab Findings: Abnormal Labs 04/29/20 04/29/20 07:48 07:48 WBC 3.7 L RBC 4.21 L MCV 108.1 H MCH 37.2 H Plt Count 128 L Lymphocytes # 0.7 L Creatinine 0.63 L Magnesium 1.3 L AST 125 H ALT 68 H Serum Alcohol 373 H* Assessment and Plan Assessment: * Gait imbalance, probably multifactorial. Patient's history of chronic heavy alcoholism is the most likely cause, as it can lead to cerebellar dysfunction. There may be some underlying nutritional/vitamin deficiency state from alcoholism, resulting in gait dysfunction/peripheral neuropathy. Patient has history of peripheral neuropathy induced by chemotherapy 14 years ago, which probably is also contributing. * History of cervical stenosis C6 7, left upper extremity weakness, status post posterior cervical decompression laminectomy with foraminotomy and fusion C6-7 on 08/14/2019. Patient still has some neck pain likely related to residual effect of neck surgery. * Cervicalgia due to above. * Chronic tobacco use * Chronic alcoholism Plan: * We will check B12, folate, TSH, MMA, B6, KALEN, RPR, A1c * CT head, rule out any intracranial process. * Recommend abstinence from alcohol. * Watch for alcohol withdrawal syndrome. * Continue thiamine, and folate, multivitamin. * Mobic for neck pain. * PT OT evaluate gait.
--- NOTE | 2020-04-29 20:59 | CT ---
EXAMINATION TYPE: CT brain wo con DATE OF EXAM: 04/29/2020 COMPARISON: 10/27/2011. HISTORY: Frequent falls, r/o subdural hematoma. CT DLP: 1159.4 mGycm Automated exposure control for dose reduction was used. FINDINGS: There is no acute intracranial hemorrhage, mass effect, midline shift or hydrocephalus. There is mild parenchymal volume loss and white matter disease. The paranasal sinuses are adequately aerated. Ther e is mild opacification of the right mastoid air cells. No calvarial fracture. IMPRESSION: NO ACUTE INTRACRANIAL ABNORMALITY. RIGHT MASTOID AIR CELL DISEASE.
[2020-04-29] MEDS: HYDROcodone/APAP 7.5-325MG 1 EACH TAB PO PRN (21:45)
[2020-04-29] MEDS: MELOXICAM 7.5 MG TAB PO SCH (21:45)
[2020-04-29] MEDS: DIVALPROEX 500 MG TABLET.DR PO SCH (22:24)
[2020-04-30] MEDS: amLODIPine 5 MG TAB PO SCH (07:55)
[2020-04-30] MEDS: GABAPENTIN 400 MG CAP PO SCH ×4 (07:55→21:15)
[2020-04-30] MEDS: THIAMINE 100 MG TAB PO SCH ×2 (07:55→17:50)
[2020-04-30] MEDS: MELOXICAM 7.5 MG TAB PO SCH (07:56)
[2020-04-30] MEDS: DIVALPROEX 500 MG TABLET.DR PO SCH ×2 (07:56→20:23)
[2020-04-30] MEDS: HYDROcodone/APAP 7.5-325MG 1 EACH TAB PO PRN ×2 (09:29→21:15)
--- NOTE | 2020-04-30 16:42 | P.PN ---
Subjective Progress Note Date: 04/30/20 Patient states he is feeling withdrawal from alcohol. He offers no new complaints. Feels numbness in the legs is better. Objective - Vital Signs Vital signs: Vital Signs Temp 98.9 F 04/30/20 15:00 Pulse 89 04/30/20 15:00 Resp 18 04/30/20 15:00 BP 152/92 04/30/20 15:00 Pulse Ox 96 04/30/20 07:52 Intake & Output 04/29/20 04/30/20 04/30/20 18:59 06:59 18:59 Intake Total 1000 300 Balance 1000 300 Weight 81.647 kg Intake: Intake, IV Titration 1000 Amount Sodium Chloride 0.9% 1, 1000 000 ml @ 999 mls/hr IV . Q1H1M ONE Rx#:[id number] Oral 300 Other: # Voids 1 1 1 - Exam Patient's mental status, speech and language functions are normal. Patient has tremors of the hands. - Labs CBC & Chem 7: 04/29/20 07:48 04/29/20 07:48 Assessment and Plan Assessment: * Gait imbalance, probably multifactorial. Patient's history of chronic heavy alcoholism is the most likely cause, as it can lead to cerebellar dysfunction. There may be some underlying nutritional/vitamin deficiency state from alcoholism, resulting in gait dysfunction/peripheral neuropathy. Patient has history of peripheral neuropathy induced by chemotherapy 14 years ago, which probably is also contributing. * Alcohol intoxication with serum alcohol level 373 on admission. * History of cervical stenosis C6 7, status post posterior cervical decompression laminectomy with foraminotomy and fusion C6-7 on 08/14/2019. Patient still has some neck pain likely related to residual effect of neck surgery. * Cervicalgia due to above. * Chronic tobacco use * Chronic alcoholism Plan: * Depakote level is 33, which is fine. TSH 3.15 normal. B12, folate, TSH, MMA, B6, KALEN, RPR, A1c, all still pending * CT head, revealed no acute process. No hydrocephalus. * Recommend abstinence from alcohol. * Watch for alcohol withdrawal syndrome. * Continue thiamine, and folate, multivitamin. * Mobic for neck pain. * PT OT evaluate gait.
--- NOTE | 2020-04-30 18:38 | PN ---
PROGRESS NOTE This is a 55-year-old white male with alcohol intoxication. He still has a moderate amount of tremors. Neurology has cleared him for discharge. He is being rehydrated. He is getting Ativan and CIWA protocol. He is asking for refills of medications. CARDIOVASCULAR: S1, S2. LUNGS: Clear. GI: Soft. HEMATOLOGY: Negative Homans. PSYCH: Fair mood and affect. NEUROLOGIC: He has a moderate amount of tremors. ASSESSMENT: 1. Alcohol intoxication. 2. Cervical disc disease. 3. Dehydration. 4. Mood disorder. Possible followup in the office in a week or two to go over long-term medication treatment and refills. MMODL / IJN: [id number] /
[2020-04-30 20:02] LABS: Folate, Serum 6.8 ng/mL
[2020-04-30 22:30] LABS: Hemoglobin A1C 4.9 % (4.0-6.0)
[2020-05-01 07:49] VITALS: BP 159/91; PULSE 101; RESP 18; TEMP 97.1
[2020-05-01] MEDS: GABAPENTIN 400 MG CAP PO SCH ×2 (07:53→13:44)
[2020-05-01] MEDS: HYDROcodone/APAP 7.5-325MG 1 EACH TAB PO PRN (07:54)
[2020-05-01] MEDS: THIAMINE 100 MG TAB PO SCH (07:54)
[2020-05-01] MEDS: amLODIPine 5 MG TAB PO SCH (07:54)
[2020-05-01] MEDS: DIVALPROEX 500 MG TABLET.DR PO SCH (07:55)
[2020-05-01] MEDS: MELOXICAM 7.5 MG TAB PO SCH (07:55)
--- NOTE | 2020-05-01 16:39 | DS ---
DISCHARGE SUMMARY DATE OF SERVICE: 05/01/2020 FINAL DIAGNOSES: 1. Alcohol intoxication. 2. Severe dehydration. 3. Possible acute delirium tremens. 4. Dehydration. 5. History of gastroesophageal reflux disease. DISCHARGE DISPOSITION: The patient will be discharged in stable condition with guarded prognosis. HISTORY OF PRESENT ILLNESS: This 55-year-old gentleman with a past medical history of multiple medical problems, being followed by Dr. Miller in the outpatient setting, had alcohol intoxication and multiple other medical problems. He was treated symptomatically. Patient improved significantly. Serum alcohol was 373. Otherwise, KALEN screen was negative. Neurology, Dr. June, saw the patient during the hospitalization also. On exam, vitals are stable. CARDIOVASCULAR SYSTEM: S1, S2 muffled. ABDOMEN: Soft. NERVOUS SYSTEM: No focal deficit. DISCHARGE ADVICE AND MEDICATIONS: 1. Discharge diet is cardiac. 2. Activity limited until followup. 3. Follow up with Dr. Perry Miller in one week. 4. Depakote 500 mg p.o. b.i.d. 5. Neurontin 800 mg q.i.d. 6. [place] 7.5 mg t.i.d. p.r.n. 7. Norvasc 5 mg p.o. daily. 8. Xanax 0.25 b.i.d. 9. Ativan 1 mg t.i.d. p.r.n. 10.Multivitamins 1 p.o. daily. 11.Thiamine 100 mg p.o. b.i.d. 12.Follow up with Neurology as recommended. MMODL / IJN: [id number] /
== END 2020-05-01 15:00 | disposition home or self-care (01) | DRG 897 ==
LOC: EC 07:13 → 1SOBS 09:16 → OBSVTOIN 04-30 13:06
PROVIDERS: ADMIT Family Medicine; ATTEND Family Medicine
DX: F10.231 Alcohol dependence with withdrawal delirium (principal); F10.229 Alcohol dependence with intoxication, unspecified; E86.0 Dehydration; H91.90 Unspecified hearing loss, unspecified ear; K21.9 Gastro-esophageal reflux disease without esophagitis; F32.9 Major depressive disorder, single episode, unspecified; Y90.8 Blood alcohol level of 240 mg/100 ml or more; M54.2 Cervicalgia; R26.89 Other abnormalities of gait and mobility; F39 Unspecified mood [affective] disorder; G40.909 Epilepsy, unspecified, not intractable, without status epilepticus; G62.9 Polyneuropathy, unspecified; F17.200 Nicotine dependence, unspecified, uncomplicated; G89.29 Other chronic pain; I10 Essential (primary) hypertension; I44.0 Atrioventricular block, first degree; Z85.118 Personal history of other malignant neoplasm of bronchus and lung; Z92.21 Personal history of antineoplastic chemotherapy; Z85.038 Personal history of other malignant neoplasm of large intestine; Z93.3 Colostomy status; Z90.49 Acquired absence of other specified parts of digestive tract; Z98.890 Other specified postprocedural states; Z80.9 Family history of malignant neoplasm, unspecified; Z83.6 Family history of other diseases of the respiratory system; Z79.899 Other long term (current) drug therapy; Z98.1 Arthrodesis status
CPT/HCPCS: 36415; 70450; 71046; 80053; 80164; 80320; 82607; 82746; 83036; 83735; 83921; 84207; 84443; 85025; 86038; 86780; 93005; 96361; 96365; 96366; 96368; 96372; 99285

== ENCOUNTER 2020-05-12 13:51 | Emergency (ER) | payer MEDICARE, OTHER ==
[2020-05-12 13:59] VITALS: RESP 19; TEMP 99.1
[2020-05-12] MEDS ORDERED: LORazepam 2 MG/ML INJ IV STA (14:45)
[2020-05-12] MEDS ORDERED: SODIUM CHLORIDE 0.9% 1,000 ML IV STA (14:45)
[2020-05-12 15:13] LABS: Basophils % (A) 1 %; Eosinophils # (A) 0.1 k/uL (0-0.7); Eosinophils % (A) 3 %; HCT 43.4 % (39.0-53.0); HGB 14.5 gm/dL (13.0-17.5); Lymphocytes # (A) 0.5 k/uL (1.0-4.8); Lymphocytes % (A) 9 %; MCHC 33.4 g/dL (31.0-37.0); MCV 107.8 fL (80.0-100.0); Macrocytosis Moderate; Mean Platelet Volume 7.5; Monocytes # (A) 0.4 k/uL (0-1.0); Monocytes % (A) 7 %; Neutrophils # (A) 4.1 k/uL (1.3-7.7); Neutrophils % (A) 79 %; Platelet Count 207 k/uL (150-450); RBC 4.02 m/uL (4.30-5.90); RDW 12.9 % (11.5-15.5); WBC 5.2 k/uL (3.8-10.6)
[2020-05-12 15:28] LABS: ALT 25 U/L (4-49); AST 58 U/L (17-59); African American GFR (CKD) >90 (>60 ml/min/1.73 sqM); Albumin 4.5 g/dL (3.5-5.0); Alcohol <10 mg/dL; Alkaline Phosphatase 56 U/L (38-126); Anion Gap 11 mmol/L; Blood Urea Nitrogen 6 mg/dL (9-20); Calcium 9.2 mg/dL (8.4-10.2); Carbon Dioxide 20 mmol/L (22-30); Chloride 100 mmol/L (98-107); Glucose 122 mg/dL (74-99); Non-African American GFR(CKD) >90 (>60 ml/min/1.73 sqM); Potassium 3.9 mmol/L (3.5-5.1); Sodium 131 mmol/L (137-145)
[2020-05-12 15:34] LABS: Valproic Acid (Depakene) <10.0 ug/mL
--- NOTE | 2020-05-12 15:54 | ED ---
General Adult HPI - General Chief complaint: Seizure Stated complaint: seizures Time Seen by Provider: 05/12/20 14:13 Source: patient, EMS, RN notes reviewed Mode of arrival: EMS Limitations: no limitations - History of Present Illness Initial comments: 55-year-old male presents to the emergency room for seizure. Patient apparently had a witnessed seizure by his daughter earlier today. Patient does not recall this episode. Patient does have a history of seizure disorder for which she takes Depakote. Patient did not have this refilled and states he last took this 2 days ago. Patient also has a history of alcohol abuse. He reports he drinks daily however did not drink today because he did not have any beer. Patient states he has had alcohol withdrawal symptoms before but has never had a seizure.Patient has no other complaints at this time including shortness of breath, chest pain, abdominal pain, nausea or vomiting, headache, or visual changes. - Related Data Home Medications Medication Instructions Recorded Confirmed ALPRAZolam [Xanax] 0.25 mg PO BID PRN 08/08/19 05/12/20 Gabapentin [Neurontin] 800 mg PO QID 04/29/20 05/12/20 HYDROcodone/APAP 7.5-325MG [[place] 1 tab PO TID PRN 04/29/20 05/12/20 7.5-325] amLODIPine [Norvasc] 5 mg PO DAILY 04/29/20 05/12/20 Previous Rx's Medication Instructions Recorded LORazepam [Ativan] 1 mg PO TID PRN #10 tab 05/01/20 Multivitamins, Thera [Multivitamin] 1 tab PO DAILY #30 tablet 05/01/20 Thiamine [Vitamin B-1] 100 mg PO BID-W/MEALS #30 tab 05/01/20 Divalproex Sodium [Depakote] 500 mg PO BID 20 Days #40 tab 05/12/20 Magnesium Oxide [Mag-Ox] 400 mg PO DAILY #3 tablet 05/12/20 Allergies Allergy/AdvReac Type Severity Reaction Status Date / Time No Known Allergies Allergy Verified 05/12/20 15:04 Review of Systems ROS Statement: Those systems with pertinent positive or pertinent negative responses have been documented in the HPI. ROS Other: All systems not noted in ROS Statement are negative. Past Medical History Past Medical History: Cancer, GERD/Reflux, Hearing Disorder / Deafness, Musculoskeletal Disorder, Seizure Disorder Additional Past Medical History / Comment(s): Hx Alcohol abuse, hx of colon CA 2005, Rt lung CA 2012 . CHALKYITSIK, tinnitus. Prob w/ lt shoulder/neck w/ cervical disc prob, NT lt arm. Poss seizure hx, adm 04/2019 D/T alcohol withdrawal w/ Sx. Varicose veins. History of Any Multi-Drug Resistant Organisms: None Reported Past Surgical History: Bowel Resection, Hernia Repair, Orthopedic Surgery Additional Past Surgical History / Comment(s): Lung biopsy + for CA, partial resection. Colon CA w/ partial colectomy. ORIF Rt ankle. Hiatal hernia surg x2. Past Anesthesia/Blood Transfusion Reactions: No Reported Reaction Past Psychological History: Depression Smoking Status: Current every day smoker Past Alcohol Use History: Abuse, Daily Past Drug Use History: Marijuana - Past Family History Mother Family Medical History: Cancer Father Family Medical History: Respiratory Disorder Additional Family Medical History / Comment(s): "couldn't breath, lung problem" General Exam Limitations: no limitations General appearance: alert, in no apparent distress Head exam: Present: atraumatic, normocephalic, normal inspection Eye exam: Present: normal appearance, PERRL, EOMI. Absent: scleral icterus, conjunctival injection, periorbital swelling ENT exam: Present: normal exam, mucous membranes moist Neck exam: Present: normal inspection, full ROM. Absent: tenderness, meningismus, lymphadenopathy Respiratory exam: Present: normal lung sounds bilaterally. Absent: respiratory distress, wheezes, rales, rhonchi, stridor Cardiovascular Exam: Present: regular rate, normal rhythm, normal heart sounds. Absent: systolic murmur, diastolic murmur, rubs, gallop, clicks GI/Abdominal exam: Present: soft, normal bowel sounds. Absent: distended, tenderness, guarding, rebound, rigid Neurological exam: Present: alert, oriented X3, other (GCS 15) Course Vital Signs 05/12/20 05/12/20 13:54 17:23 Temperature 99.1 F Pulse Rate 105 H 99 Respiratory 19 19 Rate Blood Pressure 157/104 152/96 O2 Sat by Pulse 98 97 Oximetry EKG Findings - EKG Comments: EKG Findings:: Normal sinus rhythm, ventricular rate 93, MS interval 200, QTC 447 Medical Decision Making - Medical Decision Making Patient is a daily drinker. He did not drink today because he reports he did have any alcohol at home. However patient also has a history of seizures and has not been taking his Depakote, which is found to be subtherapeutic. CBC is unremarkable. CMP shows minimal hyponatremia, patient was given IV fluids of normal saline. Magnesium 1.1 which was replaced orally and IV. CT brain is unremarkable. Alcohol is negative. Urinalysis unremarkable aside from ketones which is likely secondary to dehydration. Patient was given Ativan and reevaluated. He had significant improvement in symptoms. Patient feeling well enough for discharge home. Patient was given Depakote here in the emergency room. I did refill his prescription. I had a lengthy discussion about the importance of complying with this medication and he is agreeable at this time. I discussed this case with attending Dr. Latham who agrees with this assessment and treatment plan. - Lab Data Result diagrams: 05/12/20 14:59 05/12/20 14:59 Lab Results 05/12/20 05/12/20 05/12/20 Range/Units 14:59 14:59 14:59 WBC 5.2 (3.8-10.6) k/uL RBC 4.02 L (4.30-5.90) m/uL Hgb 14.5 (13.0-17.5) gm/dL Hct 43.4 (39.0-53.0) % MCV 107.8 H (80.0-100.0) fL MCH 36.0 H (25.0-35.0) pg MCHC 33.4 (31.0-37.0) g/dL RDW 12.9 (11.5-15.5) % Plt Count 207 (150-450) k/uL Neutrophils % 79 % Lymphocytes % 9 % Monocytes % 7 % Eosinophils % 3 % Basophils % 1 % Neutrophils # 4.1 (1.3-7.7) k/uL Lymphocytes # 0.5 L (1.0-4.8) k/uL Monocytes # 0.4 (0-1.0) k/uL Eosinophils # 0.1 (0-0.7) k/uL Basophils # 0.0 (0-0.2) k/uL Macrocytosis Moderate Sodium 131 L (137-145) mmol/L Potassium 3.9 (3.5-5.1) mmol/L Chloride 100 (98-107) mmol/L Carbon Dioxide 20 L (22-30) mmol/L Anion Gap 11 mmol/L BUN 6 L (9-20) mg/dL Creatinine 0.62 L (0.66-1.25) mg/dL Est GFR (CKD-EPI)AfAm >90 (>60 ml/min/1.73 sqM) Est GFR (CKD-EPI)NonAf >90 (>60 ml/min/1.73 sqM) Glucose 122 H (74-99) mg/dL Calcium 9.2 (8.4-10.2) mg/dL Magnesium 1.1 L (1.6-2.3) mg/dL Total Bilirubin 1.0 (0.2-1.3) mg/dL AST 58 (17-59) U/L ALT 25 (4-49) U/L Alkaline Phosphatase 56 (38-126) U/L Total Protein 7.0 (6.3-8.2) g/dL Albumin 4.5 (3.5-5.0) g/dL Urine Color Urine Appearance (Clear) Urine pH (5.0-8.0) Ur Specific [place] (1.001-1.035) Urine Protein (Negative) Urine Glucose (UA) (Negative) Urine Ketones (Negative) Urine Blood (Negative) Urine Nitrite (Negative) Urine Bilirubin (Negative) Urine Urobilinogen (<2.0) mg/dL Ur Leukocyte Esterase (Negative) Urine RBC (0-5) /hpf Urine WBC (0-5) /hpf Urine Mucus (None) /hpf Urine Opiates Screen (NotDetected) Ur Oxycodone Screen (NotDetected) Urine Methadone Screen (NotDetected) Ur Propoxyphene Screen (NotDetected) Ur Barbiturates Screen (NotDetected) Valproic Acid <10.0 ug/mL U Tricyclic Antidepress (NotDetected) Ur Phencyclidine Scrn (NotDetected) Ur Amphetamines Screen (NotDetected) U Methamphetamines Scrn (NotDetected) U Benzodiazepines Scrn (NotDetected) Urine Cocaine Screen (NotDetected) U Marijuana (THC) Screen (NotDetected) Serum Alcohol <10 mg/dL 05/12/20 Range/Units 15:46 WBC (3.8-10.6) k/uL RBC (4.30-5.90) m/uL Hgb (13.0-17.5) gm/dL Hct (39.0-53.0) % MCV (80.0-100.0) fL MCH (25.0-35.0) pg MCHC (31.0-37.0) g/dL RDW (11.5-15.5) % Plt Count (150-450) k/uL Neutrophils % % Lymphocytes % % Monocytes % % Eosinophils % % Basophils % % Neutrophils # (1.3-7.7) k/uL Lymphocytes # (1.0-4.8) k/uL Monocytes # (0-1.0) k/uL Eosinophils # (0-0.7) k/uL Basophils # (0-0.2) k/uL Macrocytosis Sodium (137-145) mmol/L Potassium (3.5-5.1) mmol/L Chloride (98-107) mmol/L Carbon Dioxide (22-30) mmol/L Anion Gap mmol/L BUN (9-20) mg/dL Creatinine (0.66-1.25) mg/dL Est GFR (CKD-EPI)AfAm (>60 ml/min/1.73 sqM) Est GFR (CKD-EPI)NonAf (>60 ml/min/1.73 sqM) Glucose (74-99) mg/dL Calcium (8.4-10.2) mg/dL Magnesium (1.6-2.3) mg/dL Total Bilirubin (0.2-1.3) mg/dL AST (17-59) U/L ALT (4-49) U/L Alkaline Phosphatase (38-126) U/L Total Protein (6.3-8.2) g/dL Albumin (3.5-5.0) g/dL Urine Color Yellow Urine Appearance Clear (Clear) Urine pH 6.0 (5.0-8.0) Ur Specific [place] 1.015 (1.001-1.035) Urine Protein 1+ H (Negative) Urine Glucose (UA) Negative (Negative) Urine Ketones 1+ H (Negative) Urine Blood Negative (Negative) Urine Nitrite Negative (Negative) Urine Bilirubin Negative (Negative) Urine Urobilinogen <2.0 (<2.0) mg/dL Ur Leukocyte Esterase Negative (Negative) Urine RBC 1 (0-5) /hpf Urine WBC 1 (0-5) /hpf Urine Mucus Rare H (None) /hpf Urine Opiates Screen Not Detected (NotDetected) Ur Oxycodone Screen Not Detected (NotDetected) Urine Methadone Screen Not Detected (NotDetected) Ur Propoxyphene Screen Not Detected (NotDetected) Ur Barbiturates Screen Not Detected (NotDetected) Valproic Acid ug/mL U Tricyclic Antidepress Not Detected (NotDetected) Ur Phencyclidine Scrn Not Detected (NotDetected) Ur Amphetamines Screen Not Detected (NotDetected) U Methamphetamines Scrn Not Detected (NotDetected) U Benzodiazepines Scrn Not Detected (NotDetected) Urine Cocaine Screen Not Detected (NotDetected) U Marijuana (THC) Screen Not Detected (NotDetected) Serum Alcohol mg/dL Disposition Clinical Impression: Recurrent seizures Disposition: HOME SELF-CARE Condition: Good Instructions (If sedation given, give patient instructions): Recurrent Seizures in Adults (ED) Additional Instructions: Please take your prescriptions as directed. You must take your Depakote as prescribed. Please follow-up with your doctor in one to 2 days. You will need to get additional refills through your primary care doctor. Return to the emergency room for any worsening symptoms. Prescriptions: Divalproex Sodium [Depakote] 500 mg PO BID 20 Days #40 tab Magnesium Oxide [Mag-Ox] 400 mg PO DAILY #3 tablet Is patient prescribed a controlled substance at d/c from ED?: No Referrals: Perry Miller MD [STAFF PHYSICIAN] - 1-2 days Time of Disposition: 17:26
[2020-05-12 16:10] LABS: Appearance,Urine Clear (Clear); Bilirubin,Urine Negative (Negative); Blood,Urine Negative (Negative); Color,Urine Yellow; Glucose,Urine (UA) Negative (Negative); Ketones,Urine 1+ (Negative); Leukocyte Esterase,Urine Negative (Negative); Mucus,Urine Rare /hpf; Nitrite,Urine Negative (Negative); Protein,Urine 1+ (Negative); RBC,Urine 1 /hpf (0-5); Specific Gravity,Urine 1.015 (1.001-1.035); Urobilinogen,Urine <2.0 mg/dL (<2.0); WBC,Urine 1 /hpf (0-5)
[2020-05-12 16:24] LABS: Amphetamine Screen,Urine Not Detected (NotDetected); Barbiturate Screen,Urine Not Detected (NotDetected); Benzodiazepines Screen,Urine Not Detected (NotDetected); Cocaine Screen,Urine Not Detected (NotDetected); Methadone Screen, Urine Not Detected (NotDetected); Opiate Screen,Urine Not Detected (NotDetected); Oxycodone Screen, Urine Not Detected (NotDetected); Phencyclidine Screen,Urine Not Detected (NotDetected); Tricyclic Antidepressant,Urine Not Detected (NotDetected); Urn Cannabinoid Scrn Not Detected (NotDetected)
--- NOTE | 2020-05-12 16:29 | CT ---
EXAMINATION TYPE: CT brain wo con DATE OF EXAM: 05/12/2020 HISTORY: Seizure activity.. CT DLP: 1111.4 mGycm. Automated Exposure Control for Dose Reduction was Utilized. TECHNIQUE: CT scan of the head is performed without contrast. COMPARISON: 04/29/2020 CT brain FINDINGS: There is no acute intracranial hemorrhage, midline shift, or mass effect identified. Redemonstrated v olume loss and white matter patchy hypodensities likely sequela of chronic microvascular ischemic serenity nge. The ventricles, sulci, and cisterns are normal in size and configuration. No extra-axial fluid collection. No depressed calvarial fracture. The globes are grossly symmetric. T here is mucosal thickening of the frontal sinuses, ethmoid sinuses, and left sphenoid sinus. Redemons trated partial opacification of the right mastoid air cells cells are clear. IMPRESSION: 1. No acute intracranial hemorrhage, midline shift, or mass effect. 2. Redemonstrated partial opacification of the right mastoid air cells.
[2020-05-12] MEDS ORDERED: MAGNESIUM SULFATE-D5W PMX 1 GM in DEXTROSE/WATER 1 100ML.BAG IVPB STA (17:10)
[2020-05-12] MEDS ORDERED: DIVALPROEX 500 MG TABLET.DR PO STA (17:10)
[2020-05-12] MEDS ORDERED: MAGNESIUM OXIDE 400 MG TAB PO STA (17:10)
[2020-05-12 17:25] VITALS: BP 152/96; PULSE 99
== END 2020-05-12 19:59 | disposition home or self-care (01) ==
LOC: EC 13:51
DX: G40.909 Epilepsy, unspecified, not intractable, without status epilepticus (principal); E87.1 Hypo-osmolality and hyponatremia; F32.9 Major depressive disorder, single episode, unspecified; F17.200 Nicotine dependence, unspecified, uncomplicated; Z79.899 Other long term (current) drug therapy; Z85.118 Personal history of other malignant neoplasm of bronchus and lung; Z85.038 Personal history of other malignant neoplasm of large intestine; Z98.890 Other specified postprocedural states; Z80.9 Family history of malignant neoplasm, unspecified
CPT/HCPCS: 36415; 93005; 80164; 80053; 83735; 85025; 81001; 80306; 70450; 99285; 96365; 96375; 96361; G0480; J2060; J3475; 80320

== ENCOUNTER 2022-11-07 02:29 | Inpatient (IN) | payer MEDICARE, OTHER ==
[2022-11-07] MEDS ORDERED: SODIUM CHLORIDE 0.9% 1,000 ML IV STA (02:36)
--- NOTE | 2022-11-07 03:02 | ED ---
General Adult HPI - General Chief complaint: Alcohol Stated complaint: Seizure Time Seen by Provider: 11/07/22 02:41 Source: patient Mode of arrival: ambulatory - History of Present Illness Initial comments: 57-year-old male with past medical history of alcohol abuse presents to e mergency department after he had an alcohol withdrawal seizure. Patient was at home with his family. His daughter went into the room to check on him as he had not been out all day. Patient was in his bed and had some confused speech. She had noted that he had urinated on himself and that he bit his tongue. She did not see him have any tonic-clonic activity however feels like she found the pat ient and his postictal state. He has had alcohol withdrawal seizures before in the past. Drinks upwards of 2/5 a day. States that today he only had 2 beers. He is attempting to quit. No history of seizure disorder. Patient has visible trauma noted to the left forehead. He is not on any blood thinners. The patient denies any headache or neck pain. 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 - Related Data Home Medications Medication Instructions Recorded Confirmed ALPRAZolam [Xanax] 0.5 mg PO DAILY PRN 11/07/22 11/07/22 Cholestyramine (with Sugar) 4 gm PO DAILY 11/07/22 11/07/22 [Questran] Divalproex ER [Depakote ER] 500 mg PO BID 11/07/22 11/07/22 Omeprazole [PriLOSEC] 40 mg PO DAILY 11/07/22 11/07/22 Tamsulosin [Flomax] 0.4 mg PO DAILY 11/07/22 11/07/22 cloNIDine HCL [Catapres] 0.1 mg PO TID 11/07/22 11/07/22 traZODone HCL [Desyrel] 50 mg PO HS 11/07/22 11/07/22 Allergies Allergy/AdvReac Type Severity Reaction Status Date / Time No Known Allergies Allergy Verified 11/07/22 02:36 Review of Systems ROS Statement: Those systems with pertinent positive or pertinent negative responses have been documented in the HPI. ROS Other: All systems not noted in ROS Statement are negative. Past Medical History Past Medical History: Cancer, GERD/Reflux, Hearing Disorder / Deafness, Musculoskeletal Disorder, Seizure Disorder Additional Past Medical History / Comment(s): Hx Alcohol abuse, hx of colon CA 2005, Rt lung CA 2012 . HOPI, tinnitus. Prob w/ lt shoulder/neck w/ cervical disc prob, NT lt arm. Poss seizure hx, adm 04/2019 D/T alcohol withdrawal w/ Sx. Varicose veins. History of Any Multi-Drug Resistant Organisms: None Reported Past Surgical History: Bowel Resection, Hernia Repair, Orthopedic Surgery Additional Past Surgical History / Comment(s): Lung biopsy + for CA, partial resection. Colon CA w/ partial colectomy. ORIF Rt ankle. Hiatal hernia surg x2. Past Anesthesia/Blood Transfusion Reactions: No Reported Reaction Past Psychological History: Depression Smoking Status: Current every day smoker Past Alcohol Use History: Abuse, Daily Past Drug Use History: Marijuana - Past Family History Mother Family Medical History: Cancer Father Family Medical History: Respiratory Disorder Additional Family Medical History / Comment(s): "couldn't breath, lung problem" Course Vital Signs 11/07/22 11/07/22 11/07/22 02:32 02:50 03:30 Temperature 100 F H Pulse Rate 115 H 96 98 Respiratory 25 H 18 17 Rate Blood Pressure 169/97 169/97 170/102 O2 Sat by Pulse 99 96 97 Oximetry 11/07/22 11/07/22 11/07/22 04:00 04:30 05:00 Temperature Pulse Rate 121 H 100 109 H Respiratory 20 18 21 Rate Blood Pressure 149/90 161/89 150/94 O2 Sat by Pulse Oximetry 11/07/22 11/07/22 11/07/22 05:30 06:00 06:30 Temperature Pulse Rate 102 H 96 98 Respiratory 20 20 20 Rate Blood Pressure 151/83 144/91 136/82 O2 Sat by Pulse Oximetry 11/07/22 07:34 Temperature 99.6 F Pulse Rate 98 Respiratory 21 Rate Blood Pressure 139/87 O2 Sat by Pulse 98 Oximetry EKG Findings - EKG Comments: EKG Findings:: EKG demonstrates sinus tachycardia with a rate of 115. [place] Interval 191. QRS 86. QTC of 402. No acute ST segment elevations or depressions Medical Decision Making - Medical Decision Making Was pt. sent in by a medical professional or institution (, PA, FOAM FABRICATOR, urgent care, hospital, or skilled nursing...) When possible be specific @ -[No] Did you speak to anyone other than the patient for history (EMS, parent, family, police, friend...)? What history was obtained from this source @ -[No] Did you review nursing and triage notes (agree or disagree)? Why? @ -[I reviewed and agree with nursing and triage notes] Were old charts reviewed (outside hosp., previous admission, EMS record, old EKG, old radiological studies, urgent care reports/EKG's, skilled nursing records)? Report findings @ -[No old charts were reviewed] Differential Diagnosis (chest pain, altered mental status, abdominal pain women, abdominal pain men, vaginal bleeding, weakness, fever, dyspnea, syncope, headache, dizziness, GI bleed, back pain, seizure, CVA, palpatations, mental health, musculoskeletal)? @ -[not applicable] EKG interpreted by me (3pts min.). @ -[As above] X-rays interpreted by me (1pt min.). @ -[None done] CT interpreted by me (1pt min.). @ -[None done] U/S interpreted by me (1pt. min.). @ -[None done] What testing was considered but not performed or refused? (CT, X-rays, U/S, labs)? Why? @ -[None] What meds were considered but not given or refused? Why? @ -[None] Did you discuss the management of the patient with other professionals (professionals i.e. , PA, FOAM FABRICATOR, lab, RT, psych nurse, social insurance specialist, associate product manager, teacher, state patrol officer, case coordinator)? Give summary @ -[No] Was smoking cessation discussed for >3mins.? @ -[No] Was critical care preformed (if so, how long)? @ -[No] Were there social determinants of health that impacted care today? How? (Homelessness, low income, unemployed, alcoholism, drug addiction, transportation, low edu. Level, literacy, decrease access to med. care, long-term, rehab)? @ -[No] Was there de-escalation of care discussed even if they declined (Discuss DNR or withdrawal of care, Hospice)? DNR status @ -[No] What co-morbidities impacted this encounter? (DM, HTN, Smoking, COPD, CAD, Cancer, CVA, ARF, Chemo, Hep., AIDS, mental health diagnosis, sleep apnea, morbid obesity)? @ -[None] Was patient admitted / discharged? Hospital course, mention meds given and route , prescriptions, significant lab abnormalities, going to OR and other pertinent info. @ -Upon arrival patient was placed into room 16. Thorough history and physical exam is performed. IV access established laboratory studies are conducted. Patient was started on Ci[place] protocol. Patient does arrive in a c-collar. CAT scan of the head and neck is performed which demonstrates no acute fractures. C-collar is removed. I spoke with the patient's family. Did recommend admissi on for alcohol withdrawal seizures area patient was in agreement with this. Spoke with Dr. Gonzalez who agreed to admit the patient Undiagnosed new problem with uncertain prognosis? @ -[No] Drug Therapy requiring intensive monitoring for toxicity (Heparin, Nitro, Insulin, Cardizem)? @ -[No] Were any procedures done? @ -[No] Diagnosis/symptom? @ -[default] Acute, or Chronic, or Acute on Chronic? @ -[default] Uncomplicated (without systemic symptoms) or Complicated (systemic symptoms)? @ -[default] Side effects of treatment? @ -[No] Exacerbation, Progression, or Severe Exacerbation? @ -[No] Poses a threat to life or bodily function? How? (Chest pain, USA, IA, pneumonia, PE, COPD, DKA, ARF, appy, cholecystitis, CVA, Diverticulitis, Homicidal, Suicidal, threat to staff... and all critical care pts) @ -[No] - Lab Data Result diagrams: 11/07/22 02:39 11/07/22 02:39 Lab Results 11/07/22 11/07/22 11/07/22 Range/Units 02:39 02:39 02:53 WBC 7.6 (3.8-10.6) k/uL RBC 4.02 L (4.30-5.90) m/uL Hgb 14.1 (13.0-17.5) gm/dL Hct 40.1 (39.0-53.0) % MCV 99.7 (80.0-100.0) fL MCH 35.0 (25.0-35.0) pg MCHC 35.1 (31.0-37.0) g/dL RDW 13.7 (11.5-15.5) % Plt Count 96 L (150-450) k/uL MPV 9.0 Neutrophils % 85 % Lymphocytes % 5 % Monocytes % 8 % Eosinophils % 0 % Basophils % 0 % Neutrophils # 6.5 (1.3-7.7) k/uL Lymphocytes # 0.4 L (1.0-4.8) k/uL Monocytes # 0.6 (0-1.0) k/uL Eosinophils # 0.0 (0-0.7) k/uL Basophils # 0.0 (0-0.2) k/uL Manual Slide Review Performed Sodium 126 L (137-145) mmol/L Potassium 3.5 (3.5-5.1) mmol/L Chloride 89 L (98-107) mmol/L Carbon Dioxide 23 (22-30) mmol/L Anion Gap 14 mmol/L BUN 5 L (9-20) mg/dL Creatinine 0.56 L (0.66-1.25) mg/dL Est GFR (CKD-EPI)AfAm >90 (>60 ml/min/1.73 sqM) Est GFR (CKD-EPI)NonAf >90 (>60 ml/min/1.73 sqM) Glucose 99 (74-99) mg/dL Plasma Lactic Acid Tim 2.0 (0.7-2.0) mmol/L Calcium 9.1 (8.4-10.2) mg/dL Magnesium 1.0 L (1.6-2.3) mg/dL Total Bilirubin 1.1 (0.2-1.3) mg/dL AST 170 H (17-59) U/L ALT 69 H (4-49) U/L Alkaline Phosphatase 82 (38-126) U/L Creatine Kinase 994 H (55-170) U/L Total Protein 7.3 (6.3-8.2) g/dL Albumin 4.3 (3.5-5.0) g/dL Urine Color Urine Appearance (Clear) Urine pH (5.0-8.0) Ur Specific [place] (1.001-1.035) Urine Protein (Negative) Urine Glucose (UA) (Negative) Urine Ketones (Negative) Urine Blood (Negative) Urine Nitrite (Negative) Urine Bilirubin (Negative) Urine Urobilinogen (<2.0) mg/dL Ur Leukocyte Esterase (Negative) Serum Alcohol <10 mg/dL 11/07/22 Range/Units 03:15 WBC (3.8-10.6) k/uL RBC (4.30-5.90) m/uL Hgb (13.0-17.5) gm/dL Hct (39.0-53.0) % MCV (80.0-100.0) fL MCH (25.0-35.0) pg MCHC (31.0-37.0) g/dL RDW (11.5-15.5) % Plt Count (150-450) k/uL MPV Neutrophils % % Lymphocytes % % Monocytes % % Eosinophils % % Basophils % % Neutrophils # (1.3-7.7) k/uL Lymphocytes # (1.0-4.8) k/uL Monocytes # (0-1.0) k/uL Eosinophils # (0-0.7) k/uL Basophils # (0-0.2) k/uL Manual Slide Review Sodium (137-145) mmol/L Potassium (3.5-5.1) mmol/L Chloride (98-107) mmol/L Carbon Dioxide (22-30) mmol/L Anion Gap mmol/L BUN (9-20) mg/dL Creatinine (0.66-1.25) mg/dL Est GFR (CKD-EPI)AfAm (>60 ml/min/1.73 sqM) Est GFR (CKD-EPI)NonAf (>60 ml/min/1.73 sqM) Glucose (74-99) mg/dL Plasma Lactic Acid Tim (0.7-2.0) mmol/L Calcium (8.4-10.2) mg/dL Magnesium (1.6-2.3) mg/dL Total Bilirubin (0.2-1.3) mg/dL AST (17-59) U/L ALT (4-49) U/L Alkaline Phosphatase (38-126) U/L Creatine Kinase (55-170) U/L Total Protein (6.3-8.2) g/dL Albumin (3.5-5.0) g/dL Urine Color Yellow Urine Appearance Clear (Clear) Urine pH 7.5 (5.0-8.0) Ur Specific [place] 1.009 (1.001-1.035) Urine Protein Trace H (Negative) Urine Glucose (UA) Negative (Negative) Urine Ketones 1+ H (Negative) Urine Blood Negative (Negative) Urine Nitrite Negative (Negative) Urine Bilirubin Negative (Negative) Urine Urobilinogen 2.0 (<2.0) mg/dL Ur Leukocyte Esterase Negative (Negative) Serum Alcohol mg/dL Disposition Clinical Impression: Hypomagnesemia, Alcohol withdrawal seizure, Blunt head trauma Disposition: ADMITTED IP TO THIS HOSP Condition: Stable Is patient prescribed a controlled substance at d/c from ED?: No Time of Disposition: 06:15 Decision to Admit Reason: Admit from EC Decision Date: 11/07/22 Decision Time: 06:15
[2022-11-07 03:16] LABS: Basophils % (A) 0 %; Eosinophils % (A) 0 %; HCT 40.1 % (39.0-53.0); HGB 14.1 gm/dL (13.0-17.5); Lymphocytes # (A) 0.4 k/uL (1.0-4.8); Lymphocytes % (A) 5 %; MCHC 35.1 g/dL (31.0-37.0); MCV 99.7 fL (80.0-100.0); Monocytes # (A) 0.6 k/uL (0-1.0); Monocytes % (A) 8 %; Neutrophils # (A) 6.5 k/uL (1.3-7.7); Neutrophils % (A) 85 %; RBC 4.02 m/uL (4.30-5.90); RDW 13.7 % (11.5-15.5); WBC 7.6 k/uL (3.8-10.6)
[2022-11-07 03:33] LABS: ALT 69 U/L (4-49); AST 170 U/L (17-59); African American GFR (CKD) >90 (>60 ml/min/1.73 sqM); Albumin 4.3 g/dL (3.5-5.0); Alcohol <10 mg/dL; Alkaline Phosphatase 82 U/L (38-126); Anion Gap 14 mmol/L; Blood Urea Nitrogen 5 mg/dL (9-20); Calcium 9.1 mg/dL (8.4-10.2); Carbon Dioxide 23 mmol/L (22-30); Chloride 89 mmol/L (98-107); Creatine Kinase 994 U/L (55-170); Glucose 99 mg/dL (74-99); Non-African American GFR(CKD) >90 (>60 ml/min/1.73 sqM); Potassium 3.5 mmol/L (3.5-5.1); Sodium 126 mmol/L (137-145); Total Bilirubin 1.1 mg/dL (0.2-1.3); Total Protein 7.3 g/dL (6.3-8.2)
[2022-11-07 03:36] LABS: Appearance,Urine Clear (Clear); Bilirubin,Urine Negative (Negative); Blood,Urine Negative (Negative); Color,Urine Yellow; Glucose,Urine (UA) Negative (Negative); Ketones,Urine 1+ (Negative); Leukocyte Esterase,Urine Negative (Negative); Nitrite,Urine Negative (Negative); PH, Urine 7.5 (5.0-8.0); Protein,Urine Trace (Negative); Specific Gravity,Urine 1.009 (1.001-1.035)
[2022-11-07] MEDS ORDERED: LORazepam 2 MG/ML INJ IV PRN ×3 (03:41)
[2022-11-07] MEDS ORDERED: THIAMINE 100 MG/ML 2 ML VIAL IM STA (03:41)
[2022-11-07 03:49] LABS: Platelet Count 96 k/uL (150-450)
--- NOTE | 2022-11-07 04:39 | CT ---
EXAMINATION TYPE: CT brain cspine wo con DATE OF EXAM: 11/07/2022 COMPARISON: Prior CT brain May 12, 2020 HISTORY: Fall injury with headache and neck pain CT DLP: 1507 mGycm. Automated Exposure Control for Dose Reduction was Utilized. TECHNIQUE: CT scan of the head and cervical spine are performed without contrast. FINDINGS: There is no acute intracranial hemorrhage or midline shift identified. Mild to moderate v entricular and sulcal prominence is redemonstrated. Mild low attenuation in the periventricular white matter is redemonstrated. Calvarium is intact. The globes are intact and the visualized sinuses are clear. Partial opacification right mastoid air cells is redemonstrated. Cervical spine is visualized in its entirety from C1 through upper thoracic levels and demonstrates s atisfactory alignment without evidence of acute fracture or dislocation. Prevertebral soft tissue ap pears within normal limits. The C1-C2 articulation is within normal limits on the coronal images. P osterior fusion hardware bilaterally at C6-C7 level is seen. Vertebral body heights and disc space he ights are preserved. Spinal canal is maintained. Axial images show multilevel left-sided uncovertebra l facet degenerative changes contributing to multilevel bilateral neural foraminal narrowing. Moderat e calcified plaque bilateral carotid bulb level is seen. Thyroid gland is within normal limits. Lung apices show emphysematous change IMPRESSION: 1. There is no acute fracture or dislocation evident in the cervical spine. 2. No acute intracranial hemorrhage or midline shift is seen.
--- NOTE | 2022-11-07 04:40 | XR ---
EXAMINATION TYPE: XR chest 1V portable DATE OF EXAM: 11/07/2022 COMPARISON: Chest x-ray April 29, 2020 HISTORY: Fall injury with pain. TECHNIQUE: Single AP portable frontal upright view of the chest is obtained. FINDINGS: There is underlying emphysematous change without suspicious new focal air space opacity, p leural effusion, or pneumothorax seen. The cardiac silhouette size is stable and within normal limit s. Surgical change to the lower cervical spine is redemonstrated. IMPRESSION: No acute process. No significant change from prior.
[2022-11-07] MEDS ORDERED: NALOXONE 0.4 MG/ML 1 ML VIAL IV PRN (06:15)
[2022-11-07] MEDS: MAGNESIUM SULFATE-D5W PMX 1 GM in DEXTROSE/WATER 1 100ML.BAG IVPB SCH ×3 (06:27→09:30)
[2022-11-07] MEDS ORDERED: DIVALPROEX ER 500 MG TAB.ER.24H PO SCH (10:00)
[2022-11-07 12:25] LABS: Amphetamine Screen,Urine Not Detected (NotDetected); Barbiturate Screen,Urine Not Detected (NotDetected); Benzodiazepines Screen,Urine Detected (NotDetected); Cocaine Screen,Urine Not Detected (NotDetected); Methadone Screen, Urine Not Detected (NotDetected); Opiate Screen,Urine Not Detected (NotDetected); Oxycodone Screen, Urine Not Detected (NotDetected); Phencyclidine Screen,Urine Not Detected (NotDetected); Tricyclic Antidepressant,Urine Not Detected (NotDetected); Urn Cannabinoid Scrn Not Detected (NotDetected)
[2022-11-07] MEDS: PANTOPRAZOLE 40 MG TABLET PO SCH (12:37)
[2022-11-07] MEDS: TAMSULOSIN 0.4 MG CAP.ER.24H PO SCH (12:37)
[2022-11-07] MEDS: cloNIDine HCL 0.1 MG TAB PO SCH ×3 (12:37→21:31)
[2022-11-07] MEDS: ENOXAPARIN 40 MG/0.4 ML SYRINGE SQ SCH (12:37)
[2022-11-07] MEDS: CHOLESTYRAMINE (WITH SUGAR) 4 GM PACKET PO SCH (12:37)
[2022-11-07 12:56] LABS: Glucose,Whole Blood 94 mg/dL (70-110)
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
--- NOTE | 2022-11-07 14:59 | P.HPIM ---
History of Present Illness H&P Date: 11/07/22 Chief Complaint: Possible seizure This is a 57-year-old patient follows Dr. Perry Miller. Chronic stable medical conditions include hard of hearing, reflux, history of colon cancer in 2005, right lung cancer in 2012. Patient has alcohol-related seizures. Question at an average is drinking about 8 beers a day up to about 3 weeks ago. Now down to 2 or 3 beers a day. Last drink was yesterday. Patient is home with his family. Daughter went to the room to check on him he had not been out all day. Patient was in his bed with some confused speech. He had urinated on himself and he had bit his tongue. No obvious tonic-clonic seizure activity was witnessed. It was more in a post ictal state. Patient has bruising to his left forehead. Patient also smoker with a congested cough. Tired. Tremors. Review of systems: GEN.: Tired and lethargic but arousable EYES: None HEENT: Left forehead bruising NECK: None RESPIRATORY: Congested cough CARDIOVASCULAR: None GASTROINTESTINAL: None GENITOURINARY: None MUSCULOSKELETAL: None LYMPHATICS: None HEMATOLOGICAL: None PSYCHIATRY: None NEUROLOGICAL: Tremors Past medical history to include: GERD, hard of hearing, alcohol-related seizure, alcohol use disorder, colon cancer 2005, right lung cancer 2012, tinnitus, varicose veins partial colectomy. Depression Social history: Left foot several family members including his son. Smokes a pack a day. Drinking about 8-10 beers a day up to 3 weeks ago. He says now down to 2 or 3 beers a day. Trying to quit. Has done marijuana. Physical examination: VITAL SIGNS: 99.6, 103, 21, 126/85, 96% room air GENERAL: BMI 25.1, laying in bed lethargic but arousable. EYES: Pupils equal. Conjunctiva normal. HEENT: External appearance of nose and ears normal, oral cavity grossly normal. Bruising on the left forehead and below the left eye NECK: JVD not raised; masses not palpable. HEART: First and second heart sounds are normal; no edema. LUNGS: Respiratory rate increased; decreased breath sounds, wheezing. ABDOMEN: Soft, nontender, liver spleen not palpable, no masses palpable. PSYCH: [Lethargic but arousable able to answer some simple questions MUSCULOSKELETAL:No Clubbing/cyanosis;muscles-grossly intact NEUROLOGICAL: Cranial nerves grossly intact; no facial asymmetry, power and sensation grossly intact. Tremors present LYMPHATICS: No lymph nodes palpable in the axilla and neck INVESTIGATIONS, reviewed in the clinical context: White count 7.6 hemoglobin 14.1 platelets 96 sodium 126 potassium 3.5 BUN 5 creatinine 0.56 magnesia 1 AST 170 ALT 69 UA ketone 1+ Urine drug screen: Benzodiazepine detected Serum alcohol less than [address] brain C-spine without contrast: No fracture EKG tracing personally reviewed by me-sinus tachycardia Chest x-ray film personally reviewed by me-some hyperinflation Assessment and plan: -Likely alcohol-related seizure. Actual seizure was not witnessed but patient was in a postictal state, with tongue biting and incontinence. Patient has been trying to cut back from alcohol. Seizure precaution. Neurology consulted. EEG -Alcohol use disorder 2 be counseled when patient is more awake -Chronic nicotine dependence cigarette smoker Nicotine patch -Acute COPD exacerbation in a current smoker DuoNeb 3 times a day. IV Solu-Medrol -Acute metabolic encephalopathy from alcohol withdrawal -Hypomagnesemia from alcoholism Replace magnesium -Alcoholic hepatitis Follow-up with GI outpatient -Hyponatremia from decreased solute intake Encourage oral intake/food. IV fluids Past Medical History Past Medical History: Cancer, GERD/Reflux, Hearing Disorder / Deafness, Musculoskeletal Disorder, Seizure Disorder Additional Past Medical History / Comment(s): Hx Alcohol abuse, hx of colon CA 2005, Rt lung CA 2012 . KENAITZE, tinnitus. Prob w/ lt shoulder/neck w/ cervical disc prob, NT lt arm. Poss seizure hx, adm 04/2019 D/T alcohol withdrawal w/ Sx. Varicose veins. History of Any Multi-Drug Resistant Organisms: None Reported Past Surgical History: Bowel Resection, Hernia Repair, Orthopedic Surgery Additional Past Surgical History / Comment(s): Lung biopsy + for CA, partial resection. Colon CA w/ partial colectomy. ORIF Rt ankle. Hiatal hernia surg x2. Past Anesthesia/Blood Transfusion Reactions: No Reported Reaction Past Psychological History: Depression Smoking Status: Current every day smoker Past Alcohol Use History: Abuse, Daily Past Drug Use History: Marijuana - Past Family History Mother Family Medical History: Cancer Father Family Medical History: Respiratory Disorder Additional Family Medical History / Comment(s): "couldn't breath, lung problem" Medications and Allergies Home Medications Medication Instructions Recorded Confirmed Type ALPRAZolam [Xanax] 0.5 mg PO DAILY PRN 11/07/22 11/07/22 History Cholestyramine (with Sugar) 4 gm PO DAILY 11/07/22 11/07/22 History [Questran] Divalproex ER [Depakote ER] 500 mg PO BID 11/07/22 11/07/22 History Omeprazole [PriLOSEC] 40 mg PO DAILY 11/07/22 11/07/22 History Tamsulosin [Flomax] 0.4 mg PO DAILY 11/07/22 11/07/22 History cloNIDine HCL [Catapres] 0.1 mg PO TID 11/07/22 11/07/22 History traZODone HCL [Desyrel] 50 mg PO HS 11/07/22 11/07/22 History Allergies Allergy/AdvReac Type Severity Reaction Status Date / Time No Known Allergies Allergy Verified 11/07/22 02:36 Physical Exam Vitals: Vital Signs Temp Pulse Resp BP Pulse Ox 11/07/22 09:30 103 H 21 126/85 96 11/07/22 07:34 99.6 F 98 21 139/87 98 11/07/22 06:30 98 20 136/82 11/07/22 06:00 96 20 144/91 11/07/22 05:30 102 H 20 151/83 11/07/22 05:00 109 H 21 150/94 11/07/22 04:30 100 18 161/89 11/07/22 04:00 121 H 20 149/90 11/07/22 03:30 98 17 170/102 97 11/07/22 02:50 96 18 169/97 96 11/07/22 02:32 100 F H 115 H 25 H 169/97 99 Intake and Output 11/06/22 11/07/22 11/07/22 22:59 06:59 14:59 Other: Weight 81.647 kg Results CBC & Chem 7: 11/07/22 02:39 11/07/22 02:39 Labs: Abnormal Lab Results - Last 24 Hours (Table) 11/07/22 11/07/22 11/07/22 Range/Units 02:39 02:39 03:15 RBC 4.02 L (4.30-5.90) m/uL Plt Count 96 L (150-450) k/uL Lymphocytes # 0.4 L (1.0-4.8) k/uL Sodium 126 L (137-145) mmol/L Chloride 89 L (98-107) mmol/L BUN 5 L (9-20) mg/dL Creatinine 0.56 L (0.66-1.25) mg/dL Magnesium 1.0 L (1.6-2.3) mg/dL AST 170 H (17-59) U/L ALT 69 H (4-49) U/L Creatine Kinase 994 H (55-170) U/L Urine Protein Trace H (Negative) Urine Ketones 1+ H (Negative)
[2022-11-07] MEDS: IPRATROPIUM-ALBUTEROL 3 ML NEB INHALATION SCH ×2 (15:38→21:09)
[2022-11-07] MEDS: diazePAM 2 MG TAB PO SCH ×2 (16:09→21:31)
[2022-11-07] MEDS: MAGNESIUM OXIDE 400 MG TAB PO SCH ×2 (16:13→21:31)
[2022-11-07] MEDS: MULTIVITAMINS, THERA 1 EACH TAB PO SCH (16:13)
[2022-11-07] MEDS: NICOTINE 21MG/24HR PATCH TRANSDERM SCH (16:14)
[2022-11-07] MEDS: SODIUM CHLORIDE 0.9% 1,000 ML IV SCH ×2 (16:17→23:03)
[2022-11-07] MEDS: methylPREDNISolone SOD SUCCI 40 MG/ML 1 ML VIAL IV SCH ×2 (16:19→23:02)
[2022-11-07] MEDS: traZODone HCL 50 MG TAB PO SCH (21:31)
[2022-11-07] MEDS: levETIRAcetam 500 MG TAB PO SCH (21:31)
--- NOTE | 2022-11-07 23:29 | EEG ---
ELECTROENCEPHALOGRAM REPORT PREAMBLE: This is a 57-year-old male, came with a possible seizure. The patient does have history of seizures as well as alcoholism in the past. This study is performed to rule out any epileptiform activity. CURRENT MEDICATIONS: 1. Catapres. 2. Depakote, which he has not taken for a long time. 3. Ativan. 4. Protonix. 5. Flomax. 6. Desyrel. EEG FINDINGS: This is a 21-channel digital EEG recorded with video component, utilizing 10/20 international system with referential and bipolar montages. Background consists of moderately well-developed, but poorly regulated, predominantly low amplitude fast frequency beta activity seen in bihemispheric region. Background does not seem to be clearly reactive to eye opening or closing. Some myogenic activity and electrode artifacts were seen intermittently during this study. Photic driving response was not seen. No focal or generalized epileptiform activity was seen. IMPRESSION: This is an abnormal EEG due to presence of excessive amount of low-voltage fast frequency beta activity, suggestive of benzodiazepine effect, or anxiety states. No epileptiform activity was seen. MMODL / IJN: [id number] /
[2022-11-08] MEDS: diazePAM 2 MG TAB PO SCH ×3 (05:35→21:23)
[2022-11-08] MEDS: SODIUM CHLORIDE 0.9% 1,000 ML IV SCH ×3 (06:10→21:23)
[2022-11-08] MEDS: IPRATROPIUM-ALBUTEROL 3 ML NEB INHALATION SCH ×3 (08:02→20:17)
[2022-11-08] MEDS: NICOTINE 21MG/24HR PATCH TRANSDERM SCH (08:42)
[2022-11-08] MEDS: TAMSULOSIN 0.4 MG CAP.ER.24H PO SCH (08:43)
[2022-11-08] MEDS: cloNIDine HCL 0.1 MG TAB PO SCH ×3 (08:43→21:23)
[2022-11-08] MEDS: levETIRAcetam 500 MG TAB PO SCH ×2 (08:43→21:23)
[2022-11-08] MEDS: PANTOPRAZOLE 40 MG TABLET PO SCH (08:43)
[2022-11-08] MEDS: MULTIVITAMINS, THERA 1 EACH TAB PO SCH (08:43)
[2022-11-08] MEDS: ENOXAPARIN 40 MG/0.4 ML SYRINGE SQ SCH (08:43)
[2022-11-08] MEDS: methylPREDNISolone SOD SUCCI 40 MG/ML 1 ML VIAL IV SCH ×3 (08:43→23:16)
[2022-11-08] MEDS: CHOLESTYRAMINE (WITH SUGAR) 4 GM PACKET PO SCH (08:43)
[2022-11-08] MEDS: MAGNESIUM OXIDE 400 MG TAB PO SCH ×3 (08:43→21:23)
[2022-11-08] MEDS: THIAMINE 100 MG TAB PO SCH (08:45)
[2022-11-08 09:25] LABS: Basophils % (A) 0 %; Eosinophils # (A) 0.1 k/uL (0-0.7); Eosinophils % (A) 2 %; HCT 36.3 % (39.0-53.0); HGB 12.6 gm/dL (13.0-17.5); Lymphocytes # (A) 0.7 k/uL (1.0-4.8); Lymphocytes % (A) 17 %; MCHC 34.8 g/dL (31.0-37.0); MCV 103.5 fL (80.0-100.0); Macrocytosis Slight; Mean Platelet Volume 9.1; Monocytes # (A) 0.5 k/uL (0-1.0); Monocytes % (A) 12 %; Neutrophils # (A) 2.9 k/uL (1.3-7.7); Neutrophils % (A) 67 %; RDW 13.2 % (11.5-15.5); WBC 4.4 k/uL (3.8-10.6)
[2022-11-08 09:31] LABS: African American GFR (CKD) >90 (>60 ml/min/1.73 sqM); Anion Gap 8 mmol/L; Blood Urea Nitrogen 13 mg/dL (9-20); Calcium 8.3 mg/dL (8.4-10.2); Carbon Dioxide 22 mmol/L (22-30); Chloride 96 mmol/L (98-107); Glucose 110 mg/dL (74-99); Magnesium 1.4 mg/dL (1.6-2.3); Non-African American GFR(CKD) >90 (>60 ml/min/1.73 sqM); Potassium 3.2 mmol/L (3.5-5.1); Sodium 126 mmol/L (137-145)
[2022-11-08 09:42] LABS: Platelet Count 89 k/uL (150-450)
[2022-11-08] MEDS ORDERED: Magnesium Replacement Protocol 1 EACH MISC MISCELLANE PRN (10:38)
[2022-11-08] MEDS ORDERED: POTASSIUM CHLORIDE ER 20 MEQ TAB.ER PO STA (10:45)
[2022-11-08] MEDS: MAGNESIUM SULFATE-D5W PMX 1 GM in DEXTROSE/WATER 1 100ML.BAG IVPB SCH ×2 (11:11→13:38)
--- NOTE | 2022-11-08 15:06 | P.PN ---
Subjective Progress Note Date: 11/08/22 First follow-up: Patient is much more alert and awake. Patient is now able to tell his history much better today. He remembers that he came because he had a convulsion while he was sleeping, bit his tongue and the lower lip, fell off the bed producing carpet burn over the left forehead region. Patient states that he has history of seizures about 3 times prior to that. The other seizures he would tighten up, body locks up but never bit his tongue. The last seizure he remembers is about 2-1/2 months ago, and the one prior was 3 months prior. He could not tell when was the first seizure ever in his life. Patient admits to drinking 3-4 beers a day although he is to drink 12 pack of beer per day, which he cut back about a month ago. He states that on the day of seizure he did drink 2 beers. Patient also showed me his bottles of medication Patient refilled his Depakote 500 mg twice a day #60 tablets on 09/28/2022. On looking at the bottle, he still has 14 pills remaining in the bottle. He has another empty bottle of Depakote that was filled on 07/16/2022. Uncertain if there was any other bottle he received in the month of August. In general he appears, patient is not taking medication regularly. However his Depakote level was therapeutic. Patient also mentioned that he had an MRI of the brain performed 6 months ago for dizziness. He does not see a neurologist. Objective - Vital Signs Vital signs: Vital Signs Temp 98.6 F 11/08/22 08:40 Pulse 90 11/08/22 08:40 Resp 17 11/08/22 08:40 BP 138/75 11/08/22 08:40 Pulse Ox 97 11/08/22 08:40 FiO2 Intake & Output 11/07/22 11/08/22 11/08/22 18:59 06:59 18:59 Intake Total 118 1138 Output Total 900 Balance -782 1138 Weight 81.647 kg Intake: Oral 118 1138 Output: Urine 900 Other: Voiding Method External Catheter External Catheter Toilet Urinal - Exam Patient is alert and awake. Speech and language functions are normal. Cranial nerves are normal. Muscle strength is normal. He is still shaky. - Labs CBC & Chem 7: 11/08/22 09:02 11/08/22 09:02 Labs: Abnormal Lab Results - Last 24 Hours (Table) 11/07/22 11/08/22 11/08/22 Range/Units 11:50 09:02 09:02 RBC 3.50 L (4.30-5.90) m/uL Hgb 12.6 L (13.0-17.5) gm/dL Hct 36.3 L (39.0-53.0) % MCV 103.5 H (80.0-100.0) fL MCH 36.0 H (25.0-35.0) pg Plt Count 89 L (150-450) k/uL Lymphocytes # 0.7 L (1.0-4.8) k/uL Sodium 126 L (137-145) mmol/L Potassium 3.2 L (3.5-5.1) mmol/L Chloride 96 L (98-107) mmol/L Creatinine 0.52 L (0.66-1.25) mg/dL Glucose 110 H (74-99) mg/dL Calcium 8.3 L (8.4-10.2) mg/dL Magnesium 1.4 L (1.6-2.3) mg/dL U Benzodiazepines Scrn Detected H (NotDetected) Assessment and Plan Assessment: * Probable unwitnessed seizure. Most likely related to alcohol withdrawal. Patient has long-standing history of alcoholism, trying to cut back on alcohol consumption. His blood alcohol level was negative. * History of seizures, perhaps related to alcoholism. * Chronic alcoholism * Elevated hepatic enzymes, likely due to alcoholism. * Tremulousness, probable alcohol withdrawal. * Tobacco use Plan: * EEG was performed, which was abnormal due to presence of excessive amount of low voltage fast frequency beta activity suggestive of medication effect. No epileptiform activity was seen. * Stat Depakote level was checked, which was therapeutic 69.9. Patient has elevated liver enzymes. We will switch from Depakote to Keppra 500 mg twice a day. * Watch for delirium tremens. * Continue multivitamins, folate, thiamine. * Patient informed of [place] state law of no driving unless seizure free for 6 months, climbing ladders, operating dangerous machinery or unsupervised swimming. * Recommended abstinence from alcohol and tobacco use. * Patient's previous B6 was 14, B12 438, folate 6.8 on 04/30/2020. Continue fol ate. * Recommend patient follow up with neurologist for management of seizure disorder. Patient claims that he had MRI of the brain performed 6 months ago. This can be followed up with his neurologist as an outpatient. * Neurologically clear for discharge.
[2022-11-08 20:24] LABS: ALT 38 U/L (4-49); AST 63 U/L (17-59); African American GFR (CKD) >90 (>60 ml/min/1.73 sqM); Albumin 3.1 g/dL (3.5-5.0); Alkaline Phosphatase 51 U/L (38-126); Anion Gap 9 mmol/L; Blood Urea Nitrogen 11 mg/dL (9-20); Calcium 8.2 mg/dL (8.4-10.2); Carbon Dioxide 25 mmol/L (22-30); Chloride 92 mmol/L (98-107); Glucose 109 mg/dL (74-99); Magnesium 1.6 mg/dL (1.6-2.3); Non-African American GFR(CKD) >90 (>60 ml/min/1.73 sqM); Potassium 3.9 mmol/L (3.5-5.1); Sodium 126 mmol/L (137-145); Total Bilirubin 0.8 mg/dL (0.2-1.3); Total Protein 5.5 g/dL (6.3-8.2)
[2022-11-08] MEDS: traZODone HCL 50 MG TAB PO SCH (21:23)
--- NOTE | 2022-11-09 01:08 | PN ---
PROGRESS NOTE SUBJECTIVE: Sundar Peacock wants to be discharged home tomorrow withdrawal. He says he has to go to leaving the hospital. He has no medicines at home. OBJECTIVE: CARDIOVASCULAR: S1, S2. LUNGS: Transmitted upper sounds. HEMATOLOGY: Negative Homans. PSYCH: Fair mood and affect. NEUROLOGIC: Alert and oriented x3. PLAN: Alcohol withdrawal, alcohol withdrawal tremors, seizure disorder, alcohol dependence. Prognosis guarded. Follow up in the next 24 to 48 hours for possible discharge. Please see further orders. Replace electrolytes with hypokalemia, hypomagnesemia. Possible discharge home tomorrow. MMODL / IJN: [id number] /
[2022-11-09] MEDS: MAGNESIUM SULFATE-D5W PMX 1 GM in DEXTROSE/WATER 1 100ML.BAG IVPB SCH ×2 (02:21→03:23)
[2022-11-09] MEDS: SODIUM CHLORIDE 0.9% 1,000 ML IV SCH (05:37)
[2022-11-09] MEDS: diazePAM 2 MG TAB PO SCH (05:46)
[2022-11-09 08:12] VITALS: BP 142/86; PULSE 80; RESP 17; TEMP 97.9
[2022-11-09] MEDS: levETIRAcetam 500 MG TAB PO SCH (08:12)
[2022-11-09] MEDS: MAGNESIUM OXIDE 400 MG TAB PO SCH (08:12)
[2022-11-09] MEDS: PANTOPRAZOLE 40 MG TABLET PO SCH (08:12)
[2022-11-09] MEDS: THIAMINE 100 MG TAB PO SCH (08:13)
[2022-11-09] MEDS: TAMSULOSIN 0.4 MG CAP.ER.24H PO SCH (08:13)
[2022-11-09] MEDS: CHOLESTYRAMINE (WITH SUGAR) 4 GM PACKET PO SCH (08:13)
[2022-11-09] MEDS: ENOXAPARIN 40 MG/0.4 ML SYRINGE SQ SCH (08:13)
[2022-11-09] MEDS: cloNIDine HCL 0.1 MG TAB PO SCH (08:13)
[2022-11-09] MEDS: methylPREDNISolone SOD SUCCI 40 MG/ML 1 ML VIAL IV SCH (08:13)
[2022-11-09] MEDS: NICOTINE 21MG/24HR PATCH TRANSDERM SCH (08:13)
[2022-11-09] MEDS: MULTIVITAMINS, THERA 1 EACH TAB PO SCH (08:13)
[2022-11-09] MEDS: IPRATROPIUM-ALBUTEROL 3 ML NEB INHALATION SCH (08:26)
== END 2022-11-09 09:52 | disposition home or self-care (01) | DRG 896 ==
LOC: EC 02:29 → 3SCARD 06:15
PROVIDERS: ADMIT Family Medicine; ATTEND Family Medicine
DX: F10.239 Alcohol dependence with withdrawal, unspecified (principal); G93.41 Metabolic encephalopathy; G40.89 Other seizures; E87.1 Hypo-osmolality and hyponatremia; J44.1 Chronic obstructive pulmonary disease with (acute) exacerbation; H91.90 Unspecified hearing loss, unspecified ear; F17.210 Nicotine dependence, cigarettes, uncomplicated; F32.A Depression, unspecified; E83.42 Hypomagnesemia; K21.9 Gastro-esophageal reflux disease without esophagitis; Z85.038 Personal history of other malignant neoplasm of large intestine; Z85.118 Personal history of other malignant neoplasm of bronchus and lung; Z90.49 Acquired absence of other specified parts of digestive tract; R45.1 Restlessness and agitation; Z28.21 Immunization not carried out because of patient refusal; K70.10 Alcoholic hepatitis without ascites; R32 Unspecified urinary incontinence; S00.83XA Contusion of other part of head, initial encounter; T20.06XA Burn of unspecified degree of forehead and cheek, initial encounter; W06.XXXA Fall from bed, initial encounter; Z79.899 Other long term (current) drug therapy
CPT/HCPCS: 36415; 70450; 71045; 72125; 80048; 80053; 80164; 80306; 80320; 81003; 82140; 82550; 83605; 83735; 84146; 85025; 94640; 95816

== ENCOUNTER 2022-12-24 19:23 | Emergency (ER) | payer MEDICARE, OTHER ==
[2022-12-24] MEDS ORDERED: SODIUM CHLORIDE 0.9% 1,000 ML IV ONE (21:54)
[2022-12-24 22:01] LABS: INR 1.2 (<1.2); Partial Thromboplastin Time 22.4 sec (22.0-30.0); Prothrombin Time 12.3 sec (9.0-12.0)
[2022-12-24 22:02] LABS: ALT 34 U/L (4-49); African American GFR (CKD) >90 (>60 ml/min/1.73 sqM); Alcohol <10 mg/dL; Anion Gap 7 mmol/L; Blood Urea Nitrogen 9 mg/dL (9-20); Calcium 8.7 mg/dL (8.4-10.2); Carbon Dioxide 26 mmol/L (22-30); Chloride 98 mmol/L (98-107); Non-African American GFR(CKD) >90 (>60 ml/min/1.73 sqM); Sodium 131 mmol/L (137-145)
[2022-12-24 22:07] LABS: Glucose,Whole Blood 108 mg/dL (70-110)
[2022-12-24 22:12] LABS: HCT 38.9 % (39.0-53.0); HGB 13.7 gm/dL (13.0-17.5); MCH 37.4 pg (25.0-35.0); MCHC 35.1 g/dL (31.0-37.0); MCV 106.5 fL (80.0-100.0); Macrocytosis Moderate; Platelet Count 72 k/uL (150-450); RBC 3.65 m/uL (4.30-5.90); RDW 13.1 % (11.5-15.5); WBC 4.2 k/uL (3.8-10.6)
--- NOTE | 2022-12-24 22:23 | CT ---
EXAMINATION TYPE: CT brain cspine wo con CT DLP: 1462.9 mGycm, Automated exposure control for dose reduction was used. DATE OF EXAM: 12/24/2022 9:41 PM COMPARISON: 11/07/2022. CLINICAL INDICATION:Male, 57 years old with history of pain; seizure TECHNIQUE: Brain: Multiple axial CT images of the brain were obtained without IV contrast. Cspine: Axial CT images from the skull base to the inferior aspect of T2 we obtained without intraven ous contrast. Coronal and sagittal reformatted images were also reviewed. FINDINGS: Brain: Extra-axial spaces: No abnormal extra-axial fluid collections. Ventricular system: Dilatation in proportion to cerebral atrophy. Cerebral parenchyma: Cerebral atrophy. No acute intraparenchymal hemorrhage or mass effect. The marrero -white junction is well differentiated. Scattered hypoattenuating areas are seen within the white mat ter. Cerebellum: Unremarkable. Mass effect: No evidence of midline shift. Intracranial vasculature: Atherosclerotic calcifications of the intracranial vessels. Soft tissues: Normal. Calvarium/osseous structures: No depressed skull fracture. Paranasal sinuses and mastoid air cells: Clear. Visualized orbits: Bilateral aphakia Cervical spine: Fracture: None. Osseous structures: Fixation hardware in C6-C7 posterior aspect of the spine. The C6 screws have bhumi cent lucency. Multilevel degenerative disc disease changes with endplate spurring and disc osteophyte complex's. Vertebral alignment: Within normal limits. Spinal canal/Neural Foramina: No evidence of significant spinal canal narrowing. No evidence for sign ificant neural foraminal stenosis. Neck soft tissues: Prevertebral soft tissues are within normal limits. Other: The airway is patent. The lung apices are clear. IMPRESSION: 1. No acute intracranial process. 2. Nonspecific white matter changes, likely secondary to chronic small vessel ischemic disease. 3. No evidence of cervical spine fracture. 4. Mild multilevel degenerative disc disease. 5. C6 C7 with fixation hardware with lucency around the C6 screws. Findings could represent loosenin g
--- NOTE | 2022-12-24 22:35 | ED ---
General Adult HPI - General Chief complaint: Dizziness Stated complaint: Dizziness Time Seen by Provider: 12/24/22 20:21 Source: patient, RN notes reviewed Mode of arrival: EMS Limitations: no limitations - History of Present Illness Initial comments: 57-year-old male with past medical history significant for seizures and alcohol abuse presents to the emergency department with a chief complaint of increased weakness. Patient reports increased weakness over the last 4 days. He is reporting frequent falls. He denies hitting his head or loss of consciousness. He reports that his bilateral lower extremities have been weak for the last 8 months. He denies any injury or trauma. He does report daily alcohol use. He drinks approximately 6 beers daily. He reports that his last alcohol use was 2 days ago. He has not been taking his medications accordingly. Patient is a poor historian. - Related Data Home Medications Medication Instructions Recorded Confirmed ALPRAZolam [Xanax] 0.5 mg PO DAILY PRN 11/07/22 11/07/22 Cholestyramine (with Sugar) 4 gm PO DAILY 11/07/22 11/07/22 [Questran Packet] Tamsulosin [Flomax] 0.4 mg PO DAILY 11/07/22 11/07/22 cloNIDine HCL [Catapres] 0.1 mg PO TID 11/07/22 11/07/22 traZODone HCL [Desyrel] 50 mg PO HS 11/07/22 11/07/22 Previous Rx's Medication Instructions Recorded Ipratropium-Albuterol Nebulize 3 ml INHALATION RT-TID 90 Days 11/09/22 [Duoneb 0.5 mg-3 mg/3 ml Soln] #270 each Magnesium Oxide [Mag-Ox] 400 mg PO TID 90 Days #90 tab 11/09/22 Multivitamins, Thera [Multivitamin 1 each PO DAILY 30 Days #30 tab 11/09/22 (formulary)] Nicotine 21Mg/24Hr Patch [Habitrol] 1 patch TRANSDERM DAILY 30 Days 11/09/22 #30 patch Pantoprazole [Protonix] 40 mg PO DAILY 90 Days #90 tab 11/09/22 Thiamine [Vitamin B-1] 100 mg PO DAILY 30 Days #30 tab 11/09/22 levETIRAcetam [Keppra] 500 mg PO Q12HR 90 Days #180 tab 11/09/22 Allergies Allergy/AdvReac Type Severity Reaction Status Date / Time No Known Allergies Allergy Verified 12/24/22 20:12 Review of Systems ROS Statement: Those systems with pertinent positive or pertinent negative responses have been documented in the HPI. ROS Other: All systems not noted in ROS Statement are negative. Past Medical History Past Medical History: Cancer, GERD/Reflux, Hearing Disorder / Deafness, Musculoskeletal Disorder, Seizure Disorder Additional Past Medical History / Comment(s): Hx Alcohol abuse, hx of colon CA 2005, Rt lung CA 2012 . [place] TRIBE, tinnitus. Prob w/ lt shoulder/neck w/ cervical disc prob, NT lt arm. Poss seizure hx, adm 04/2019 D/T alcohol withdrawal w/ Sx. Varicose veins. History of Any Multi-Drug Resistant Organisms: None Reported Past Surgical History: Bowel Resection, Hernia Repair, Orthopedic Surgery Additional Past Surgical History / Comment(s): Lung biopsy + for CA, partial resection. Colon CA w/ partial colectomy. ORIF Rt ankle. Hiatal hernia surg x2. Past Anesthesia/Blood Transfusion Reactions: No Reported Reaction Past Psychological History: Depression Smoking Status: Current every day smoker Past Alcohol Use History: Abuse, Daily Past Drug Use History: Marijuana - Past Family History Mother Family Medical History: Cancer Father Family Medical History: Respiratory Disorder Additional Family Medical History / Comment(s): "couldn't breath, lung problem" General Exam - General Exam Comments Initial Comments: General: Alert, in no acute distress Head: atraumatic normocephalic. Eyes PERRL, EOMI intact, mucous membranes moist Respiratory: Lungs clear to auscultation bilaterally Cardiovascular: Rate regular rate and rhythm Abdominal: Soft without guarding or rebound Extremities: Normal inspection with full range of motion and normal capillary refill Neuroogic: alert and oriented 3, CN II-XII intact, able to ambulate with steady gait Skin: warm dry and intact with normal color Limitations: no limitations Course Vital Signs 12/24/22 12/25/22 20:06 01:51 Temperature 98.1 F 97.9 F Pulse Rate 97 71 Respiratory 18 16 Rate Blood Pressure 184/103 171/84 O2 Sat by Pulse 98 97 Oximetry - Reevaluation(s) Reevaluation #1: 12/25/22 02:14 Patient reevaluated. Patient able to ambulate to the restroom with a steady gait. Patient agreeable with the plan for discharge. EKG Findings - EKG Comments: EKG Findings:: I interpreted the following: EKG performed at 20:52. Rate 82 bpm and sinus rhythm with first-degree AV block. NE interval 212, QRS recent 88, QT/QTC 37/413 Medical Decision Making - Medical Decision Making Was pt. sent in by a medical professional or institution (, TELLO, AUTO INSPECTOR, urgent care, hospital, or senior care...) When possible be specific @ -[No] Did you speak to anyone other than the patient for history (EMS, parent, family, police, friend...)? What history was obtained from this source @ -[No] Did you review nursing and triage notes (agree or disagree)? Why? @ -[I reviewed and agree with nursing and triage notes] Were old charts reviewed (outside hosp., previous admission, EMS record, old EKG, old radiological studies, urgent care reports/EKG's, senior care records)? Report findings @ -[No old charts were reviewed] Differential Diagnosis (chest pain, altered mental status, abdominal pain women, abdominal pain men, vaginal bleeding, weakness, fever, dyspnea, syncope, headache, dizziness, GI bleed, back pain, seizure, CVA, palpatations, mental health, musculoskeletal)? @ -[not applicable] EKG interpreted by me (3pts min.). @ -[As above] X-rays interpreted by me (1pt min.). @ -[None done] CT interpreted by me (1pt min.). @ -[None done] U/S interpreted by me (1pt. min.). @ -[None done] What testing was considered but not performed or refused? (CT, X-rays, U/S, labs)? Why? @ -[None] What meds were considered but not given or refused? Why? @ -[None] Did you discuss the management of the patient with other professionals (professionals i.e. TELLO Mcgee, AUTO INSPECTOR, lab, RT, psych nurse, social sciences department chair, front office assistant, teacher, youth corrections officer, case resource manager)? Give summary @ -[No] Was smoking cessation discussed for >3mins.? @ -[No] Was critical care preformed (if so, how long)? @ -[No] Were there social determinants of health that impacted care today? How? (Homelessness, low income, unemployed, alcoholism, drug addiction, transportation, low edu. Level, literacy, decrease access to med. care, long-term, rehab)? @ -[No] Was there de-escalation of care discussed even if they declined (Discuss DNR or withdrawal of care, Hospice)? DNR status @ -[No] What co-morbidities impacted this encounter? (DM, HTN, Smoking, COPD, CAD, Cancer, CVA, ARF, Chemo, Hep., AIDS, mental health diagnosis, sleep apnea, morbid obesity)? @ -[None] Was patient admitted / discharged? Hospital course, mention meds given and route, prescriptions, significant lab abnormalities, going to OR and other pertinent info. @ - Discharge. This is a pleasant 57-year-old male who presents the emergency department with dizziness. Patient had a thorough history and physical exam performed on the ED. Heart rate regular rate and rhythm, lungs clear to auscultation bilaterally, abdomen soft and nontender. Patient has a slight tremor. Patient able to ambulate with a steady gait and no focal neuro deficits noted. Patient had complaints of. Including lab work and imaging performed: Labs unremarkable for WBC 4.2, hemoglobin 13.7 sodium 131, potassium 4.7319, creatinine 0.47. Urinalysis negative serum alcohol negative less than 10. CT does not reveal any intracranial process. I discussed the results in detail with the patient and the patient's son who verbalized understanding and all qu estions were addressed. Patient was given 1 L of IV fluids and Ativan with symptomatic relief while in the emergency department. He does not verbalize desire for assistance in alcohol withdrawal . Return precautions were discussed at length. He should discharged in stable condition. Case discussed with MILKA Peters who agrees with Plan of care,. Undiagnosed new problem with uncertain prognosis? @ -[No] Drug Therapy requiring intensive monitoring for toxicity (Heparin, Nitro, Insulin, Cardizem)? @ -[No] Were any procedures done? @ -[No] Diagnosis/symptom? @ -Dizziness - Hx of Alcohol Abuse Acute, or Chronic, or Acute on Chronic? @ -Acute Uncomplicated (without systemic symptoms) or Complicated (systemic symptoms)? @ -Uncomplicated Side effects of treatment? @ -[No] Exacerbation, Progression, or Severe Exacerbation? @ -[No] Poses a threat to life or bodily function? How? (Chest pain, [place], [place], pneumonia, PE, COPD, DKA, ARF, appy, cholecystitis, CVA, Diverticulitis, Homicidal, Suicidal, threat to staff... and all critical care pts) @ Low likelihood - Lab Data Result diagrams: 12/24/22 21:47 12/24/22 21:47 Lab Results 12/24/22 12/24/22 12/24/22 Range/Units 20:29 21:47 21:47 WBC 4.2 (3.8-10.6) k/uL RBC 3.65 L (4.30-5.90) m/uL Hgb 13.7 (13.0-17.5) gm/dL Hct 38.9 L (39.0-53.0) % MCV 106.5 H (80.0-100.0) fL MCH 37.4 H (25.0-35.0) pg MCHC 35.1 (31.0-37.0) g/dL RDW 13.1 (11.5-15.5) % Plt Count 72 L (150-450) k/uL MPV 9.0 Neutrophils % (Manual) 74 % Lymphocytes % (Manual) 17 % Monocytes % (Manual) 9 % Neutrophils # (Manual) 3.11 (1.3-7.7) k/uL Lymphocytes # (Manual) 0.71 L (1.0-4.8) k/uL Monocytes # (Manual) 0.38 (0-1.0) k/uL Nucleated RBCs 0 (0-0) /100 WBC Manual Slide Review Performed Macrocytosis Moderate PT 12.3 H (9.0-12.0) sec INR 1.2 H (<1.2) APTT 22.4 (22.0-30.0) sec Sodium (137-145) mmol/L Potassium (3.5-5.1) mmol/L Chloride (98-107) mmol/L Carbon Dioxide (22-30) mmol/L Anion Gap mmol/L BUN (9-20) mg/dL Creatinine (0.66-1.25) mg/dL Est GFR (CKD-EPI)AfAm (>60 ml/min/1.73 sqM) Est GFR (CKD-EPI)NonAf (>60 ml/min/1.73 sqM) Glucose (74-99) mg/dL POC Glucose (mg/dL) (70-110) mg/dL POC Glu Health Evaluator ID Calcium (8.4-10.2) mg/dL Total Bilirubin (0.2-1.3) mg/dL AST (17-59) U/L ALT (4-49) U/L Alkaline Phosphatase (38-126) U/L Troponin I (0.000-0.034) ng/mL Total Protein (6.3-8.2) g/dL Albumin (3.5-5.0) g/dL Urine Color Colorless Urine Appearance Clear (Clear) Urine pH 7.5 (5.0-8.0) Ur Specific [place] 1.004 (1.001-1.035) Urine Protein Negative (Negative) Urine Glucose (UA) Negative (Negative) Urine Ketones Negative (Negative) Urine Blood Negative (Negative) Urine Nitrite Negative (Negative) Urine Bilirubin Negative (Negative) Urine Urobilinogen <2.0 (<2.0) mg/dL Ur Leukocyte Esterase Negative (Negative) Serum Alcohol mg/dL 12/24/22 12/24/22 12/24/22 Range/Units 21:47 21:47 22:04 WBC (3.8-10.6) k/uL RBC (4.30-5.90) m/uL Hgb (13.0-17.5) gm/dL Hct (39.0-53.0) % MCV (80.0-100.0) fL MCH (25.0-35.0) pg MCHC (31.0-37.0) g/dL RDW (11.5-15.5) % Plt Count (150-450) k/uL MPV Neutrophils % (Manual) % Lymphocytes % (Manual) % Monocytes % (Manual) % Neutrophils # (Manual) (1.3-7.7) k/uL Lymphocytes # (Manual) (1.0-4.8) k/uL Monocytes # (Manual) (0-1.0) k/uL Nucleated RBCs (0-0) /100 WBC Manual Slide Review Macrocytosis PT (9.0-12.0) sec INR (<1.2) APTT (22.0-30.0) sec Sodium 131 L (137-145) mmol/L Potassium 4.7 (3.5-5.1) mmol/L Chloride 98 (98-107) mmol/L Carbon Dioxide 26 (22-30) mmol/L Anion Gap 7 mmol/L BUN 9 (9-20) mg/dL Creatinine 0.47 L (0.66-1.25) mg/dL Est GFR (CKD-EPI)AfAm >90 (>60 ml/min/1.73 sqM) Est GFR (CKD-EPI)NonAf >90 (>60 ml/min/1.73 sqM) Glucose 99 (74-99) mg/dL POC Glucose (mg/dL) 108 (70-110) mg/dL POC Glu Health Evaluator ID Edward Cortez Calcium 8.7 (8.4-10.2) mg/dL Total Bilirubin 1.6 H (0.2-1.3) mg/dL AST 76 H (17-59) U/L ALT 34 (4-49) U/L Alkaline Phosphatase 50 (38-126) U/L Troponin I 0.019 (0.000-0.034) ng/mL Total Protein 7.2 (6.3-8.2) g/dL Albumin 4.2 (3.5-5.0) g/dL Urine Color Urine Appearance (Clear) Urine pH (5.0-8.0) Ur Specific [place] (1.001-1.035) Urine Protein (Negative) Urine Glucose (UA) (Negative) Urine Ketones (Negative) Urine Blood (Negative) Urine Nitrite (Negative) Urine Bilirubin (Negative) Urine Urobilinogen (<2.0) mg/dL Ur Leukocyte Esterase (Negative) Serum Alcohol <10 mg/dL 12/25/22 Range/Units 00:52 WBC (3.8-10.6) k/uL RBC (4.30-5.90) m/uL Hgb (13.0-17.5) gm/dL Hct (39.0-53.0) % MCV (80.0-100.0) fL MCH (25.0-35.0) pg MCHC (31.0-37.0) g/dL RDW (11.5-15.5) % Plt Count (150-450) k/uL MPV Neutrophils % (Manual) % Lymphocytes % (Manual) % Monocytes % (Manual) % Neutrophils # (Manual) (1.3-7.7) k/uL Lymphocytes # (Manual) (1.0-4.8) k/uL Monocytes # (Manual) (0-1.0) k/uL Nucleated RBCs (0-0) /100 WBC Manual Slide Review Macrocytosis PT (9.0-12.0) sec INR (<1.2) APTT (22.0-30.0) sec Sodium (137-145) mmol/L Potassium (3.5-5.1) mmol/L Chloride (98-107) mmol/L Carbon Dioxide (22-30) mmol/L Anion Gap mmol/L BUN (9-20) mg/dL Creatinine (0.66-1.25) mg/dL Est GFR (CKD-EPI)AfAm (>60 ml/min/1.73 sqM) Est GFR (CKD-EPI)NonAf (>60 ml/min/1.73 sqM) Glucose (74-99) mg/dL POC Glucose (mg/dL) 107 (70-110) mg/dL POC Glu Health Evaluator ID Merlyn Cantu Calcium (8.4-10.2) mg/dL Total Bilirubin (0.2-1.3) mg/dL AST (17-59) U/L ALT (4-49) U/L Alkaline Phosphatase (38-126) U/L Troponin I (0.000-0.034) ng/mL Total Protein (6.3-8.2) g/dL Albumin (3.5-5.0) g/dL Urine Color Urine Appearance (Clear) Urine pH (5.0-8.0) Ur Specific [place] (1.001-1.035) Urine Protein (Negative) Urine Glucose (UA) (Negative) Urine Ketones (Negative) Urine Blood (Negative) Urine Nitrite (Negative) Urine Bilirubin (Negative) Urine Urobilinogen (<2.0) mg/dL Ur Leukocyte Esterase (Negative) Serum Alcohol mg/dL Disposition Clinical Impression: Alcohol use, Dizziness Disposition: HOME SELF-CARE Condition: Stable Instructions (If sedation given, give patient instructions): Dizziness (ED) Additional Instructions: Please return to the nearest emergency department symptoms worsen or persist Is patient prescribed a controlled substance at d/c from ED?: No Referrals: Perry Miller MD [Primary Care Provider] - 1-2 days Time of Disposition: 02:55
[2022-12-24 22:37] LABS: AST 76 U/L (17-59); Albumin 4.2 g/dL (3.5-5.0); Alkaline Phosphatase 50 U/L (38-126); Glucose 99 mg/dL (74-99); Potassium 4.7 mmol/L (3.5-5.1); Total Bilirubin 1.6 mg/dL (0.2-1.3); Total Protein 7.2 g/dL (6.3-8.2)
[2022-12-24 23:48] LABS: Appearance,Urine Clear (Clear); Bilirubin,Urine Negative (Negative); Blood,Urine Negative (Negative); Color,Urine Colorless; Glucose,Urine (UA) Negative (Negative); Ketones,Urine Negative (Negative); Leukocyte Esterase,Urine Negative (Negative); Nitrite,Urine Negative (Negative); PH, Urine 7.5 (5.0-8.0); Protein,Urine Negative (Negative); Specific Gravity,Urine 1.004 (1.001-1.035); Urobilinogen,Urine <2.0 mg/dL (<2.0)
[2022-12-25 00:07] LABS: Lymphocytes # (M) 0.71 k/uL (1.0-4.8); Monocytes # (M) 0.38 k/uL (0-1.0); Neutrophils # (M) 3.11 k/uL (1.3-7.7); Neutrophils % (M) 74 %; Nucleated Red Blood Cells 0 /100 WBC (0-0); Total Cells Counted 100
[2022-12-25 00:55] LABS: Glucose,Whole Blood 107 mg/dL (70-110)
[2022-12-25 01:52] VITALS: BP 171/84; PULSE 71; RESP 16; TEMP 97.9
[2022-12-25] MEDS ORDERED: LORazepam 2 MG/ML INJ IV STA (02:14)
== END 2022-12-25 03:20 | disposition home or self-care (01) ==
LOC: EC 19:23
DX: R42 Dizziness and giddiness (principal); F10.90 Alcohol use, unspecified, uncomplicated; F32.A Depression, unspecified; F17.200 Nicotine dependence, unspecified, uncomplicated; F12.90 Cannabis use, unspecified, uncomplicated; Z79.899 Other long term (current) drug therapy; Y90.0 Blood alcohol level of less than 20 mg/100 ml
CPT/HCPCS: 99284 ×2; 96374 ×2; 96361 ×2; 36415 ×2; 93005; 80053; 80177; 84484; 85025; 85610; 85730; 81003; 80320; 72125; 70450; J2060

== ENCOUNTER 2023-02-14 11:41 | Emergency (ER) | payer MEDICARE, OTHER ==
[2023-02-14 11:44] VITALS: BP 172/92; PULSE 97; RESP 18; TEMP 98.9
[2023-02-14] MEDS ORDERED: oxyCODONE-APAP 5-325MG 1 EACH TAB PO STA (12:02)
[2023-02-14] MEDS ORDERED: ORPHENADRINE 30 MG/ML 2 ML VIAL IM STA (12:02)
--- NOTE | 2023-02-14 12:08 | ED ---
Back Pain HPI - General Chief Complaint: Back Pain/Injury Stated Complaint: back pain Time Seen by Provider: 02/14/23 11:50 Source: patient, RN notes reviewed, old records reviewed Limitations: no limitations - History of Present Illness Initial Comments: 57-year-old male alert and oriented 4 presents with complaints of low back pain radiating down the back of his left leg for the past month and a half. Patient states he does have a history of neuropathy in both legs for past 17 years that started after treatment with radiation for colon cancer with Dr Lawrence. Patient states has been out of his medications for a couple of months at least. States his is not able to drive and cannot get to his doctor's appointments, has missed too many appointments and Dr. Miller has now refused to see him. Patient states that he was taking Xanax and Percocets but is out. Denies any trauma. No fevers. No nausea vomiting or diarrhea. No bowel or bladder incontinence. MD Complaint: back pain -: month(s) (1 1/2 months) Similar Symptoms Previously: Yes Radiation: left leg Severity scale (1-10): 8 Quality: other (shooting) Consistency: constant Improves With: immobilization Worsens With: movement Associated Symptoms: denies other symptoms - Related Data Home Medications Medication Instructions Recorded Confirmed ALPRAZolam [Xanax] 0.5 mg PO DAILY PRN 11/07/22 11/07/22 Cholestyramine (with Sugar) 4 gm PO DAILY 11/07/22 11/07/22 [Questran Packet] Tamsulosin [Flomax] 0.4 mg PO DAILY 11/07/22 11/07/22 cloNIDine HCL [Catapres] 0.1 mg PO TID 11/07/22 11/07/22 traZODone HCL [Desyrel] 50 mg PO HS 11/07/22 11/07/22 Previous Rx's Medication Instructions Recorded Ipratropium-Albuterol Nebulize 3 ml INHALATION RT-TID 90 Days 11/09/22 [Duoneb 0.5 mg-3 mg/3 ml Soln] #270 each Magnesium Oxide [Mag-Ox] 400 mg PO TID 90 Days #90 tab 11/09/22 Multivitamins, Thera [Multivitamin 1 each PO DAILY 30 Days #30 tab 11/09/22 (formulary)] Nicotine 21Mg/24Hr Patch [Habitrol] 1 patch TRANSDERM DAILY 30 Days 11/09/22 #30 patch Pantoprazole [Protonix] 40 mg PO DAILY 90 Days #90 tab 11/09/22 Thiamine [Vitamin B-1] 100 mg PO DAILY 30 Days #30 tab 11/09/22 levETIRAcetam [Keppra] 500 mg PO Q12HR 90 Days #180 tab 11/09/22 Cyclobenzaprine [Flexeril] 10 mg PO TID #12 tab 02/14/23 Allergies Allergy/AdvReac Type Severity Reaction Status Date / Time No Known Allergies Allergy Verified 02/14/23 11:44 Review of Systems ROS Statement: Those systems with pertinent positive or pertinent negative responses have been documented in the HPI. ROS Other: All systems not noted in ROS Statement are negative. Past Medical History Past Medical History: Cancer, GERD/Reflux, Hearing Disorder / Deafness, Musculoskeletal Disorder, Seizure Disorder Additional Past Medical History / Comment(s): Hx Alcohol abuse, hx of colon CA 2005, Rt lung CA 2012 . [place] AND [place], tinnitus. Prob w/ lt shoulder/neck w/ cervical disc prob, NT lt arm. Poss seizure hx, adm 04/2019 D/T alcohol withdrawal w/ Sx. Varicose veins. History of Any Multi-Drug Resistant Organisms: None Reported Past Surgical History: Bowel Resection, Hernia Repair, Orthopedic Surgery Additional Past Surgical History / Comment(s): Lung biopsy + for CA, partial resection. Colon CA w/ partial colectomy. ORIF Rt ankle. Hiatal hernia surg x2. Past Anesthesia/Blood Transfusion Reactions: No Reported Reaction Past Psychological History: Depression Smoking Status: Current every day smoker Past Alcohol Use History: Abuse, Daily Past Drug Use History: Marijuana - Past Family History Mother Family Medical History: Cancer Father Family Medical History: Respiratory Disorder Additional Family Medical History / Comment(s): "couldn't breath, lung problem" General Exam Limitations: no limitations General appearance: alert, in no apparent distress Head exam: Present: atraumatic, normocephalic Eye exam: Present: normal appearance. Absent: scleral icterus, conjunctival injection, periorbital swelling Neck exam: Absent: tenderness, meningismus Respiratory exam: Absent: respiratory distress, accessory muscle use Cardiovascular Exam: Present: regular rate GI/Abdominal exam: Present: soft Extremities exam: Present: full ROM, tenderness (back of left thigh "pulling"), normal capillary refill. Absent: pedal edema Back exam: Present: paraspinal tenderness (left lumbar, SI notch). Absent: tenderness, CVA tenderness (R), CVA tenderness (L), muscle spasm, vertebral tenderness Expanded Back exam: Present: other (able to lift legs against resistance, pain down back of left thigh stops at knee). Absent: saddle anesthesia Back exam: Negative Straight Leg Raising: Left, Right Neurological exam: Present: alert, oriented X3 Psychiatric exam: Present: normal affect, normal mood Skin exam: Present: warm, dry, normal color. Absent: cyanosis, diaphoretic, petechiae, pallor Course Vital Signs 02/14/23 11:42 Temperature 98.9 F Pulse Rate 97 Respiratory 18 Rate Blood Pressure 172/92 O2 Sat by Pulse 98 Oximetry Medical Decision Making - Medical Decision Making Was pt. sent in by a medical professional or institution (, PA, ATTORNEY LAW CLERK, urgent care, hospital, or longterm...) When possible be specific @ -No Did you speak to anyone other than the patient for history (EMS, parent, family, police, friend...)? What history was obtained from this source @ -No Did you review nursing and triage notes (agree or disagree)? Why? @ -I reviewed and agree with nursing and triage notes Were old charts reviewed (outside hosp., previous admission, EMS record, old EKG, old radiological studies, urgent care reports/EKG's, longterm records)? Report findings @ -No old charts were reviewed Differential Diagnosis (chest pain, altered mental status, abdominal pain women, abdominal pain men, vaginal bleeding, weakness, fever, dyspnea, syncope, headache, dizziness, GI bleed, back pain, seizure, CVA, palpatations, mental health, musculoskeletal)? @ -Differential Back Pain: Strain, zoster, cauda equina syndrome, epidural abscess, vertebral osteomyelitis, discitis, fracture, subluxation, disc herniation, DJD, spinal stenosis, dissection, AAA, pancreatitis, peptic ulcer disease, pyelonephritis, kidney stone, this is not meant to be an all-inclusive list. EKG interpreted by me (3pts min.). @ -n/a X-rays interpreted by me (1pt min.). @ -None done CT interpreted by me (1pt min.). @ -CT of the lumbar spine interpreted by me shows no evidence of fracture or masses. U/S interpreted by me (1pt. min.). @ -None done What testing was considered but not performed or refused? (CT, X-rays, U/S, labs)? Why? @ -None What meds were considered but not given or refused? Why? @ -None Did you discuss the management of the patient with other professionals (professionals i.e. , PA, ATTORNEY LAW CLERK, lab, RT, psych nurse, social studies teacher, chart collector, teacher, life science technical officer, case reviewer)? Give summary @ -No Was smoking cessation discussed for >3mins.? @ -No Was critical care preformed (if so, how long)? @ -No Were there social determinants of health that impacted care today? How? (Homelessness, low income, unemployed, alcoholism, drug addiction, trans portation, low edu. Level, literacy, decrease access to med. care, detention, rehab)? @ -No Was there de-escalation of care discussed even if they declined (Discuss DNR or withdrawal of care, Hospice)? DNR status @ -No What co-morbidities impacted this encounter? (DM, HTN, Smoking, COPD, CAD, Cancer, CVA, ARF, Chemo, Hep., AIDS, mental health diagnosis, sleep apnea, morbid obesity)? @ -Patient has history of colon cancer, GERD, seizure disorder, alcohol abuse, bowel resection, lung cancer with partial resection, depression, daily smoker. Was patient admitted / discharged? Hospital course, mention meds given and route, prescriptions, significant lab abnormalities, going to OR and other pertinent info. @ -Discharged 57-year-old male alert and oriented 4 presents with complaints of low back pain radiating down the back of his left leg for the past month and a half. Patient states he does have a history of neuropathy in both legs for past 17 years that started after treatment with radiation for colon cancer with Dr Lawrence. Patient states has been out of his medications for a couple of months at least. States his is not able to drive and cannot get to his doctor's appointments, has missed too many appointments and Dr. Miller has now refused to see him. Patient states that he was taking Xanax and Percocets but is out. Denies any trauma. No fevers. No nausea vomiting or diarrhea. No bowel or bladder incontinence. Patient reports no fevers. No trauma. No bowel or bladder incontinence. No saddle anesthesia. States similar to his neuropathy he's had in the past but worse since she's been out of his medications. Due to patient's history of cancer and worsening of back pain, a CT was ordered. CT of the lumbar spine interpreted by me shows no evidence of fracture or masses. The radiologist's impression no evidence for spinal fracture. Mild to moderate multilevel degeneration changes throughout the spine. No foraminal stenosis worse at L5 through S1 with moderate to severe bilateral foraminal stenosis. Facet joint arthropathy and disc bulging with mild spinal canal stenosis and moderate to severe bilateral neural foraminal stenosis. Patient was given a shot of Norflex and a Percocet as he states that he takes this at home but has been out. Prescription for Flexeril was provided. He was discharged home with a friend and directed to follow up with his primary care doctor. Additional PCP referrals were provided in addition to pain management. Patient is agreeable to discharge. Case discussed with Dr. Lang Undiagnosed new problem with uncertain prognosis? @ -No Drug Therapy requiring intensive monitoring for toxicity (Heparin, Nitro, Insulin, Cardizem)? @ -No Were any procedures done? @ -No Diagnosis/symptom? @ -Chronic back pain Acute, or Chronic, or Acute on Chronic? @ -Acute on Chronic Uncomplicated (without systemic symptoms) or Complicated (systemic symptoms)? @ -Uncomplicated Side effects of treatment? @ -No Exacerbation, Progression, or Severe Exacerbation? @ -No Poses a threat to life or bodily function? How? (Chest pain, [place], [place], pneumonia, PE, COPD, DKA, ARF, appy, cholecystitis, CVA, Diverticulitis, Homicidal, Suicidal, threat to staff... and all critical care pts) @ -No Disposition Clinical Impression: Chronic back pain Disposition: HOME SELF-CARE Condition: Good Instructions (If sedation given, give patient instructions): Chronic Back Pain (DC), Lower Back Exercises (ED) Additional Instructions: Tylenol and or Motrin as needed for any pain or discomfort. You can use [id number] topical pain medications robert-campbell, tiger balm or icy hot. Follow-up with your primary care doctor and pain management for continuation of care. Prescriptions: Cyclobenzaprine [Flexeril] 10 mg PO TID #12 tab Is patient prescribed a controlled substance at d/c from ED?: No Referrals: None,Stated [Primary Care Provider] - 1-2 days Perry Miller MD [STAFF PHYSICIAN] - 1-2 days Marissa Swenson MD [STAFF PHYSICIAN] - 1-2 days Forms: Area PCPs Time of Disposition: 13:06
--- NOTE | 2023-02-14 12:43 | CT ---
EXAMINATION TYPE: CT lumbar spine wo con CT DLP: 728 mGycm, Automated exposure control for dose reduction was used. DATE OF EXAM: 02/14/2023 12:32 PM COMPARISON: 10/26/2017. . CLINICAL INDICATION:Male, 57 years old with history of low back pain hx cancer; PHH, TECHNIQUE: Multiple axial images were obtained from the midportion of T11 through the sacroiliac diallo nts. Soft tissue and bone windows in coronal and sagittal planes were obtained and reviewed. 3-D ref ormats of the bones were created on a separate workstation and submitted for review. Contrast used: mL of , none. Oral contrast used: none. FINDINGS: Alignment: There are 5 lumbar type vertebral bodies within normal alignment. Bone: No evidence of fracture is identified. Mild disc degeneration with osteophytes and facet joint arthropathy throughout the spine. Discs: T12-L1: No spinal canal or neural foraminal stenosis is identified. L1-L2: Facet joint arthropathy and disc bulging result without significant spinal canal stenosis or n eural foraminal stenosis. L2-L3: Facet joint arthropathy and disc bulging result without significant spinal canal stenosis or n eural foraminal stenosis. L3-L4: Facet joint arthropathy and disc bulging result without significant spinal canal stenosis or n eural foraminal stenosis. L4-L5: Facet joint arthropathy and disc bulging result with mild spinal canal stenosis and mild bila teral neural foraminal stenosis. L5-S1: Facet joint arthropathy and disc bulging result with mild spinal canal stenosis and moderate t o severe bilateral neural foraminal stenosis. Other: Streaky atelectasis in the right lower lung medially not really seen on prior in 2019. IMPRESSION: 1. No evidence for spinal fracture. 2. Mild to moderate multilevel degeneration changes throughout the spine. No foraminal stenosis worse at L5-S1 with moderate to severe bilateral
== END 2023-02-14 13:20 | disposition home or self-care (01) ==
LOC: EC 11:41
DX: G89.29 Other chronic pain (principal); M54.50 Low back pain, unspecified; F32.A Depression, unspecified; C18.9 Malignant neoplasm of colon, unspecified; F17.200 Nicotine dependence, unspecified, uncomplicated; F12.90 Cannabis use, unspecified, uncomplicated; Z79.899 Other long term (current) drug therapy
CPT/HCPCS: 72131; 99284; 96372; J2360

== ENCOUNTER 2023-06-02 15:27 | Inpatient (IN) | payer MEDICARE, OTHER ==
[2023-06-02] MEDS ORDERED: SODIUM CHLORIDE 0.9% 1,000 ML IV ONE (16:00)
--- NOTE | 2023-06-02 16:07 | ED ---
General Adult HPI - General Chief complaint: Altered Mental Status Stated complaint: AMS Time Seen by Provider: 06/02/23 15:41 Source: patient, RN notes reviewed, old records reviewed Mode of arrival: ambulatory Limitations: no limitations - History of Present Illness Initial comments: 58-year-old male presenting with confusion, visual hallucinations over the past 3 days. Patient had a fall yesterday with head trauma and was seen at outside hospital. His son states that the confusion began before this fall and he believes this is why he was unsteady and fell. She denies focal numbness or weakness but does have some slurred speech which is also been present for the past 3 days. The patient is a daily drinker drinking both beer and whiskey. He also has chronic medical conditions but is uncertain what medications he is supposed to be taking. His been out of his medications for approximately 2 weeks. - Related Data Home Medications Medication Instructions Recorded Confirmed ALPRAZolam [Xanax] 0.5 mg PO DAILY PRN 11/07/22 11/07/22 Cholestyramine (with Sugar) 4 gm PO DAILY 11/07/22 11/07/22 [Questran Packet] Tamsulosin [Flomax] 0.4 mg PO DAILY 11/07/22 11/07/22 cloNIDine HCL [Catapres] 0.1 mg PO TID 11/07/22 11/07/22 traZODone HCL [Desyrel] 50 mg PO HS 11/07/22 11/07/22 Previous Rx's Medication Instructions Recorded Ipratropium-Albuterol Nebulize 3 ml INHALATION RT-TID 90 Days 11/09/22 [Duoneb 0.5 mg-3 mg/3 ml Soln] #270 each Magnesium Oxide [Mag-Ox] 400 mg PO TID 90 Days #90 tab 11/09/22 Multivitamins, Thera [Multivitamin 1 each PO DAILY 30 Days #30 tab 11/09/22 (formulary)] Nicotine 21Mg/24Hr Patch [Habitrol] 1 patch TRANSDERM DAILY 30 Days 11/09/22 #30 patch Pantoprazole [Protonix] 40 mg PO DAILY 90 Days #90 tab 11/09/22 Thiamine [Vitamin B-1] 100 mg PO DAILY 30 Days #30 tab 11/09/22 levETIRAcetam [Keppra] 500 mg PO Q12HR 90 Days #180 tab 11/09/22 Cyclobenzaprine [Flexeril] 10 mg PO TID #12 tab 02/14/23 Allergies Allergy/AdvReac Type Severity Reaction Status Date / Time No Known Allergies Allergy Verified 06/02/23 15:38 Review of Systems ROS Statement: Those systems with pertinent positive or pertinent negative responses have been documented in the HPI. ROS Other: All systems not noted in ROS Statement are negative. Past Medical History Past Medical History: Cancer, GERD/Reflux, Hearing Disorder / Deafness, Musculoskeletal Disorder, Seizure Disorder Additional Past Medical History / Comment(s): Hx Alcohol abuse, hx of colon CA 2005, Rt lung CA 2012 . [place], tinnitus. Prob w/ lt shoulder/neck w/ cervical disc prob, NT lt arm. Poss seizure hx, adm 04/2019 D/T alcohol withdrawal w/ Sx. Varicose veins. History of Any Multi-Drug Resistant Organisms: None Reported Past Surgical History: Bowel Resection, Hernia Repair, Orthopedic Surgery Additional Past Surgical History / Comment(s): Lung biopsy + for CA, partial resection. Colon CA w/ partial colectomy. ORIF Rt ankle. Hiatal hernia surg x2. Past Anesthesia/Blood Transfusion Reactions: No Reported Reaction Past Psychological History: Depression Smoking Status: Current every day smoker Past Alcohol Use History: Abuse, Daily Past Drug Use History: Marijuana - Past Family History Mother Family Medical History: Cancer Father Family Medical History: Respiratory Disorder Additional Family Medical History / Comment(s): "couldn't breath, lung problem" General Exam Limitations: no limitations General appearance: alert Head exam: Present: normocephalic Eye exam: Present: PERRL, periorbital swelling ENT exam: Present: mucous membranes dry Respiratory exam: Present: normal lung sounds bilaterally. Absent: respiratory distress, wheezes Cardiovascular Exam: Present: regular rate, normal rhythm GI/Abdominal exam: Present: soft. Absent: distended, tenderness, guarding Extremities exam: Present: normal inspection, normal capillary refill Neurological exam: Present: alert, other (Tremulous). Absent: motor sensory deficit Psychiatric exam: Present: anxious Skin exam: Present: warm Course Vital Signs 06/02/23 15:32 Temperature 98.3 F Pulse Rate 101 H Respiratory 20 Rate Blood Pressure 181/83 O2 Sat by Pulse 98 Oximetry Medical Decision Making - Medical Decision Making Was pt. sent in by a medical professional or institution (TELLO Mcgee, EDUCATION COURSES SALES REPRESENTATIVE, urgent care, hospital, or halfway...) When possible be specific @ -No Did you speak to anyone other than the patient for history (EMS, parent, family, police, friend...)? What history was obtained from this source @ History is obtained from the patient and the patient's son. Did you review nursing and triage notes (agree or disagree)? Why? @ -I reviewed and agree with nursing and triage notes Were old charts reviewed (outside hosp., previous admission, EMS record, old EKG, old radiological studies, urgent care reports/EKG's, halfway records)? Report findings @ -No old charts were reviewed Differential Diagnosis (chest pain, altered mental status, abdominal pain women, abdominal pain men, vaginal bleeding, weakness, fever, dyspnea, syncope, headache, dizziness, GI bleed, back pain, seizure, CVA, palpatations, mental health, musculoskeletal)? @ -[Differential Altered Mental Status: Hypoglycemia, DKA, hypercapnia, ETOH, overdose, CO poisoning, trauma, myxedema coma, HTN encephalopathy, infection, encephalitis, psychosis, intercranial hemorrhage, hepatic encephalopathy, meningitis, CVA, this is not meant to be an all-inclusive list EKG interpreted by me (3pts min.). @ -EKG: Sinus rhythm rate of 96, KS interval 168, QRS duration 92, QTC [address] segment elevation. X-rays interpreted by me (1pt min.). @ -Chest x-ray negative for acute cardiopulmonary findings. CT interpreted by me (1pt min.). @ CT negative for intracranial hemorrhage, nasal bone and maxillary sinus fracture U/S interpreted by me (1pt. min.). @ -None done What testing was considered but not performed or refused? (CT, X-rays, U/S, labs)? Why? @ -None What meds were considered but not given or refused? Why? @ -None Did you discuss the management of the patient with other professionals (professionals i.e. TELLO Mcgee, EDUCATION COURSES SALES REPRESENTATIVE, lab, RT, psych nurse, social sciences research scientist, dermatologist and dermatopathologist, teacher, chief sustainability officer, case mgr)? Give summary @ Dr. Bryan Was smoking cessation discussed for >3mins.? @ -No Was critical care preformed (if so, how long)? @ -No Were there social determinants of health that impacted care today? How? (Homelessness, low income, unemployed, alcoholism, drug addiction, transportation, low edu. Level, literacy, decrease access to med. care, long term, rehab)? @ -[Alcoholism Was there de-escalation of care discussed even if they declined (Discuss DNR or withdrawal of care, Hospice)? DNR status @ -No What co-morbidities impacted this encounter? (DM, HTN, Smoking, COPD, CAD, Cancer, CVA, ARF, Chemo, Hep., AIDS, mental health diagnosis, sleep apnea, morbid obesity)? @ -[Alcoholism Was patient admitted / discharged? Hospital course, mention meds given and route, prescriptions, significant lab abnormalities, going to OR and other pertinent info. @ -[58-year-old male with 3 days of confusion, hallucination, likely related to withdrawal. Patient has minor lab abnormalities including anemia, hyponatremia, and mild hyperammonemia. Patient started on IV fluids and benzodiazepine for alcohol withdrawal. He will be admitted to this dictation. Undiagnosed new problem with uncertain prognosis? @ -No Drug Therapy requiring intensive monitoring for toxicity (Heparin, Nitro, Insulin, Cardizem)? @ -No Were any procedures done? @ -No Diagnosis/symptom? @ Altered mental status secondary to alcohol withdrawal and impending DTs Acute, or Chronic, or Acute on Chronic? @ -Acute Uncomplicated (without systemic symptoms) or Complicated (systemic symptoms)? @ -default Side effects of treatment? @ -No Exacerbation, Progression, or Severe Exacerbation? @ -No Poses a threat to life or bodily function? How? (Chest pain, [place], [place], pneumonia, PE, COPD, DKA, ARF, appy, cholecystitis, CVA, Diverticulitis, Homicidal, Suicidal, threat to staff... and all critical care pts) @ -[Yes, delirium tremens - Lab Data Result diagrams: 06/02/23 16:02 06/02/23 16:02 Lab Results 06/02/23 06/02/23 06/02/23 Range/Units 16:02 16:02 16:02 WBC 5.1 (3.8-10.6) k/uL RBC 3.33 L (4.30-5.90) m/uL Hgb 12.5 L (13.0-17.5) gm/dL Hct 35.7 L (39.0-53.0) % MCV 107.3 H (80.0-100.0) fL MCH 37.4 H (25.0-35.0) pg MCHC 34.9 (31.0-37.0) g/dL RDW 12.9 (11.5-15.5) % Plt Count 147 L (150-450) k/uL MPV 7.5 Neutrophils % 64 % Lymphocytes % 16 % Monocytes % 13 % Eosinophils % 4 % Basophils % 0 % Neutrophils # 3.3 (1.3-7.7) k/uL Lymphocytes # 0.8 L (1.0-4.8) k/uL Monocytes # 0.7 (0-1.0) k/uL Eosinophils # 0.2 (0-0.7) k/uL Basophils # 0.0 (0-0.2) k/uL Macrocytosis Moderate PT 10.5 (10.0-12.5) sec INR 0.9 (<1.2) APTT 25.5 (22.0-30.0) sec Sodium (137-145) mmol/L Potassium (3.5-5.1) mmol/L Chloride (98-107) mmol/L Carbon Dioxide (22-30) mmol/L Anion Gap mmol/L BUN (9-20) mg/dL Creatinine (0.66-1.25) mg/dL Est GFR (CKD-EPI)AfAm (>60 ml/min/1.73 sqM) Est GFR (CKD-EPI)NonAf (>60 ml/min/1.73 sqM) Glucose (74-99) mg/dL Calcium (8.4-10.2) mg/dL Total Bilirubin (0.2-1.3) mg/dL AST (17-59) U/L ALT (4-49) U/L Alkaline Phosphatase (38-126) U/L Ammonia (<30) umol/L Troponin I (0.000-0.034) ng/mL Total Protein (6.3-8.2) g/dL Albumin (3.5-5.0) g/dL Urine Color Colorless Urine Appearance Clear (Clear) Urine pH 5.5 (5.0-8.0) Ur Specific [place] 1.010 (1.001-1.035) Urine Protein Negative (Negative) Urine Glucose (UA) Negative (Negative) Urine Ketones Negative (Negative) Urine Blood Negative (Negative) Urine Nitrite Negative (Negative) Urine Bilirubin Negative (Negative) Urine Urobilinogen <2.0 (<2.0) mg/dL Ur Leukocyte Esterase Negative (Negative) Urine Opiates Screen Not Detected (NotDetected) Ur Oxycodone Screen Not Detected (NotDetected) Urine Methadone Screen Not Detected (NotDetected) Ur Propoxyphene Screen Not Detected (NotDetected) Ur Barbiturates Screen Not Detected (NotDetected) U Tricyclic Antidepress Detected H (NotDetected) Ur Phencyclidine Scrn Not Detected (NotDetected) Ur Amphetamines Screen Not Detected (NotDetected) U Methamphetamines Scrn Not Detected (NotDetected) U Benzodiazepines Scrn Not Detected (NotDetected) Urine Cocaine Screen Not Detected (NotDetected) U Marijuana (THC) Screen Not Detected (NotDetected) Serum Alcohol mg/dL 06/02/23 06/02/23 06/02/23 Range/Units 16:02 16:02 16:02 WBC (3.8-10.6) k/uL RBC (4.30-5.90) m/uL Hgb (13.0-17.5) gm/dL Hct (39.0-53.0) % MCV (80.0-100.0) fL MCH (25.0-35.0) pg MCHC (31.0-37.0) g/dL RDW (11.5-15.5) % Plt Count (150-450) k/uL MPV Neutrophils % % Lymphocytes % % Monocytes % % Eosinophils % % Basophils % % Neutrophils # (1.3-7.7) k/uL Lymphocytes # (1.0-4.8) k/uL Monocytes # (0-1.0) k/uL Eosinophils # (0-0.7) k/uL Basophils # (0-0.2) k/uL Macrocytosis PT (10.0-12.5) sec INR (<1.2) APTT (22.0-30.0) sec Sodium 129 L (137-145) mmol/L Potassium 3.6 (3.5-5.1) mmol/L Chloride 93 L (98-107) mmol/L Carbon Dioxide 24 (22-30) mmol/L Anion Gap 12 mmol/L BUN 11 (9-20) mg/dL Creatinine 0.62 L (0.66-1.25) mg/dL Est GFR (CKD-EPI)AfAm >90 (>60 ml/min/1.73 sqM) Est GFR (CKD-EPI)NonAf >90 (>60 ml/min/1.73 sqM) Glucose 111 H (74-99) mg/dL Calcium 9.1 (8.4-10.2) mg/dL Total Bilirubin 0.8 (0.2-1.3) mg/dL AST 36 (17-59) U/L ALT 20 (4-49) U/L Alkaline Phosphatase 44 (38-126) U/L Ammonia 32 H (<30) umol/L Troponin I <0.012 (0.000-0.034) ng/mL Total Protein 6.8 (6.3-8.2) g/dL Albumin 4.2 (3.5-5.0) g/dL Urine Color Urine Appearance (Clear) Urine pH (5.0-8.0) Ur Specific [place] (1.001-1.035) Urine Protein (Negative) Urine Glucose (UA) (Negative) Urine Ketones (Negative) Urine Blood (Negative) Urine Nitrite (Negative) Urine Bilirubin (Negative) Urine Urobilinogen (<2.0) mg/dL Ur Leukocyte Esterase (Negative) Urine Opiates Screen (NotDetected) Ur Oxycodone Screen (NotDetected) Urine Methadone Screen (NotDetected) Ur Propoxyphene Screen (NotDetected) Ur Barbiturates Screen (NotDetected) U Tricyclic Antidepress (NotDetected) Ur Phencyclidine Scrn (NotDetected) Ur Amphetamines Screen (NotDetected) U Methamphetamines Scrn (NotDetected) U Benzodiazepines Scrn (NotDetected) Urine Cocaine Screen (NotDetected) U Marijuana (THC) Screen (NotDetected) Serum Alcohol <10 mg/dL Disposition Clinical Impression: Alcohol use, Delirium due to general medical condition, Alcohol withdrawal Disposition: ADMITTED IP TO THIS [facility] Condition: Stable Is patient prescribed a controlled substance at d/c from ED?: No Referrals: None,Stated [REFERRING] - 1-2 days Time of Disposition: 17:19
[2023-06-02 16:20] LABS: Basophils % (A) 0 %; Eosinophils # (A) 0.2 k/uL (0-0.7); Eosinophils % (A) 4 %; HCT 35.7 % (39.0-53.0); HGB 12.5 gm/dL (13.0-17.5); Lymphocytes # (A) 0.8 k/uL (1.0-4.8); Lymphocytes % (A) 16 %; MCH 37.4 pg (25.0-35.0); MCHC 34.9 g/dL (31.0-37.0); MCV 107.3 fL (80.0-100.0); Macrocytosis Moderate; Mean Platelet Volume 7.5; Monocytes # (A) 0.7 k/uL (0-1.0); Monocytes % (A) 13 %; Neutrophils # (A) 3.3 k/uL (1.3-7.7); Neutrophils % (A) 64 %; Platelet Count 147 k/uL (150-450); RBC 3.33 m/uL (4.30-5.90); RDW 12.9 % (11.5-15.5); WBC 5.1 k/uL (3.8-10.6)
[2023-06-02 16:28] LABS: Appearance,Urine Clear (Clear); Bilirubin,Urine Negative (Negative); Blood,Urine Negative (Negative); Color,Urine Colorless; Glucose,Urine (UA) Negative (Negative); Ketones,Urine Negative (Negative); Leukocyte Esterase,Urine Negative (Negative); Nitrite,Urine Negative (Negative); PH, Urine 5.5 (5.0-8.0); Protein,Urine Negative (Negative); Urobilinogen,Urine <2.0 mg/dL (<2.0)
[2023-06-02 16:31] LABS: ALT 20 U/L (4-49); AST 36 U/L (17-59); African American GFR (CKD) >90 (>60 ml/min/1.73 sqM); Albumin 4.2 g/dL (3.5-5.0); Alcohol <10 mg/dL; Alkaline Phosphatase 44 U/L (38-126); Anion Gap 12 mmol/L; Blood Urea Nitrogen 11 mg/dL (9-20); Calcium 9.1 mg/dL (8.4-10.2); Carbon Dioxide 24 mmol/L (22-30); Chloride 93 mmol/L (98-107); Glucose 111 mg/dL (74-99); Non-African American GFR(CKD) >90 (>60 ml/min/1.73 sqM); Potassium 3.6 mmol/L (3.5-5.1); Sodium 129 mmol/L (137-145); Total Bilirubin 0.8 mg/dL (0.2-1.3); Total Protein 6.8 g/dL (6.3-8.2)
[2023-06-02 16:36] LABS: INR 0.9 (<1.2); Partial Thromboplastin Time 25.5 sec (22.0-30.0); Prothrombin Time 10.5 sec (10.0-12.5)
--- NOTE | 2023-06-02 16:43 | CT ---
EXAMINATION TYPE: CT brain wo con DATE OF EXAM: 06/02/2023 COMPARISON: 12/24/2022 HISTORY: Previous fall, stitches to front of head, AMS, very shaky CT DLP: 1196.4 mGycm Automated exposure control for dose reduction was used. FINDINGS: The ventricles, basal cisterns and sulci over convexities within normal limits for the patient's age. There is no mass effect or shift of midline structures. No abnormal density is seen throughout the brain parenchyma. There is no acute intra or extra-axial hemorrhage. Posterior fossa including the brainstem, fourth ventricle and cerebellar pontine angles appear normal . The calvarium is intact. There is near complete opacification of the right maxillary sinus with fluid. There is a mildly displ aced fracture of the anterior wall of the right maxillary sinus. There is a mildly displaced nasal fr acture on the left. The remaining paranasal sinuses and mastoid air cells are well aerated The intraorbital contents appear normal and symmetric Impression: 1. No acute bleed or mass effect. 2. Right maxillary and left nasal bone fractures with opacification of the right maxillary sinus like ly secondary to hemorrhage.
[2023-06-02 16:52] LABS: Cocaine Screen,Urine Not Detected (NotDetected); Phencyclidine Screen,Urine Not Detected (NotDetected); Urn Cannabinoid Scrn Not Detected (NotDetected)
[2023-06-02 16:53] LABS: Amphetamine Screen,Urine Not Detected (NotDetected); Barbiturate Screen,Urine Not Detected (NotDetected); Benzodiazepines Screen,Urine Not Detected (NotDetected); Methadone Screen, Urine Not Detected (NotDetected); Opiate Screen,Urine Not Detected (NotDetected); Oxycodone Screen, Urine Not Detected (NotDetected); Tricyclic Antidepressant,Urine Detected (NotDetected)
[2023-06-02] MEDS ORDERED: THIAMINE 100 MG/ML 2 ML VIAL IM STA (16:54)
[2023-06-02] MEDS ORDERED: NALOXONE 0.4 MG/ML 1 ML VIAL IV PRN (17:15)
--- NOTE | 2023-06-02 17:34 | XR ---
EXAMINATION TYPE: XR chest 2V DATE OF EXAM: 06/02/2023 4:46 PM CLINICAL INDICATION:Male, 58 years old with history of altered mental status; [facility] COMPARISON: 11/07/2022 TECHNIQUE: XR chest 2V Frontal and lateral views of the chest. FINDINGS: Lines/Tubes: No indwelling lines are seen. Lungs/Pleura: There is no evidence of pleural effusion, focal consolidation, or pneumothorax. Lungs a ppear mildly overinflated with some flattening of the diaphragms, this can be seen with COPD. Pulmonary vascularity: Unremarkable. Heart/mediastinum: Cardiomediastinal silhouette is unremarkable. Heart size is normal. Musculoskeletal: No acute osseous pathology. Mild degenerative changes. Partially seen fusion changes in the lower cervical spine. Other findings: None IMPRESSION: No acute cardiopulmonary disease/process.
[2023-06-02] MEDS: SODIUM CHLORIDE 0.9% 1,000 ML IV SCH ×2 (17:37→22:06)
[2023-06-02] MEDS: LORazepam 2 MG/ML INJ IV PRN ×2 (19:30→20:43)
[2023-06-02] MEDS ORDERED: LORazepam 2 MG/ML INJ IV STA (20:52)
[2023-06-02] MEDS: AMOXIC-POT CLAV 875-125MG 1 EACH TAB PO SCH (21:14)
[2023-06-02 21:18] LABS: Glucose,Whole Blood 100 mg/dL (70-110)
[2023-06-02 21:34] LABS: Glucose,Whole Blood 97 mg/dL (70-110)
[2023-06-02] MEDS: DEXMEDETOMIDINE/0.9% NACL(PMX) 400 MCG in EMPTY BAG 1 BAG IV SCH (22:05)
[2023-06-02 23:53] LABS: Glucose,Whole Blood 102 mg/dL (70-110)
[2023-06-03] MEDS: LORazepam 2 MG/ML INJ IV PRN ×5 (00:43→20:50)
[2023-06-03 00:45] LABS: African American GFR (CKD) >90 (>60 ml/min/1.73 sqM); Anion Gap 7 mmol/L; Blood Urea Nitrogen 10 mg/dL (9-20); Calcium 8.5 mg/dL (8.4-10.2); Carbon Dioxide 25 mmol/L (22-30); Chloride 100 mmol/L (98-107); Glucose 92 mg/dL (74-99); Non-African American GFR(CKD) >90 (>60 ml/min/1.73 sqM); Potassium 3.7 mmol/L (3.5-5.1); Sodium 132 mmol/L (137-145)
[2023-06-03] MEDS ORDERED: Potassium Replacement Protocol 1 EACH MISC MISCELLANE PRN (01:03)
[2023-06-03] MEDS: POTASSIUM CHLORIDE 10 MEQ in WATER FOR INJECTION 1 100ML.BAG IVPB SCH ×2 (01:43→03:04)
[2023-06-03] MEDS: DEXMEDETOMIDINE/0.9% NACL(PMX) 400 MCG in EMPTY BAG 1 BAG IV SCH ×2 (02:33→10:30)
[2023-06-03 06:21] LABS: Glucose,Whole Blood 122 mg/dL (70-110)
[2023-06-03 06:24] LABS: Basophils % (A) 1 %; Eosinophils # (A) 0.3 k/uL (0-0.7); Eosinophils % (A) 6 %; HCT 39.4 % (39.0-53.0); HGB 13.3 gm/dL (13.0-17.5); Lymphocytes # (A) 0.7 k/uL (1.0-4.8); Lymphocytes % (A) 16 %; MCH 37.1 pg (25.0-35.0); MCHC 33.8 g/dL (31.0-37.0); Macrocytosis Marked; Mean Platelet Volume 7.3; Monocytes # (A) 0.6 k/uL (0-1.0); Monocytes % (A) 14 %; Neutrophils # (A) 2.6 k/uL (1.3-7.7); Neutrophils % (A) 61 %; Platelet Count 157 k/uL (150-450); RBC 3.59 m/uL (4.30-5.90); WBC 4.2 k/uL (3.8-10.6)
[2023-06-03 06:25] LABS: MCV 109.7 fL (80.0-100.0)
[2023-06-03 06:39] LABS: African American GFR (CKD) >90 (>60 ml/min/1.73 sqM); Anion Gap 7 mmol/L; Blood Urea Nitrogen 7 mg/dL (9-20); Calcium 9.1 mg/dL (8.4-10.2); Carbon Dioxide 22 mmol/L (22-30); Chloride 106 mmol/L (98-107); Glucose 118 mg/dL (74-99); Magnesium 1.5 mg/dL (1.6-2.3); Non-African American GFR(CKD) >90 (>60 ml/min/1.73 sqM); Potassium 4.3 mmol/L (3.5-5.1); Sodium 135 mmol/L (137-145)
[2023-06-03] MEDS ORDERED: Magnesium Replacement Protocol 1 EACH MISC MISCELLANE PRN (06:50)
[2023-06-03] MEDS: MAGNESIUM SULFATE-D5W PMX 1 GM in DEXTROSE/WATER 1 100ML.BAG IVPB SCH ×2 (06:58→09:01)
[2023-06-03] MEDS: hydrALAZINE HCL 20 MG/ML 1 ML VIAL IVP PRN ×2 (08:00→13:06)
[2023-06-03] MEDS: AMOXIC-POT CLAV 875-125MG 1 EACH TAB PO SCH (10:18)
[2023-06-03] MEDS: PANTOPRAZOLE 40 MG/10 ML VIAL IVP SCH (10:22)
[2023-06-03] MEDS: HEPARIN SODIUM,PORCINE 5,000 UNIT/ML 1 ML VIAL SQ SCH ×2 (10:22→16:43)
[2023-06-03] MEDS: THIAMINE 100 MG TAB PO SCH (10:23)
--- NOTE | 2023-06-03 10:27 | P.HPIM ---
History of Present Illness H&P Date: 06/02/23 Sundar Peacock, is a 58-year-old male who presented to [facility] emergency room with a chief complaint of confusion and visual hallucination for the last 3 days, patient had a fall at home with head trauma, and was seen at a different Hospital emergency room, patient stated that he drinks alcohol daily. He was evaluated in the emergency room vital examination on presentation revea led a temperature of 98.3 pulse 101 respiration 20 blood pressure 181/83 pulse ox 98% on room air Laboratory data revealed a white blood count of 5.1 hemoglobin 12.5 platelet count 147 sodium 129 potassium 3.6 chloride 93 BUN 11 creatinine 0.63 ammonia level was elevated at 32 Testing in the emergency room revealed computed tomography scan of the brain reveals no acute bleed or mass affect, there was evidence of right maxillary and left nasal bone fractures with opacification of the right maxillary sinus, chest x-ray revealed no acute cardiopulmonary disease, EKG revealing normal sinus rhythm. Patient was admitted to medical floor for further evaluation and treatment, he was receiving IV Ativan, however he had worsening symptoms with tremors and agitation, he was transferred to intensive care unit. Past Medical History Past Medical History: Cancer, GERD/Reflux, Hearing Disorder / Deafness, Musculoskeletal Disorder, Seizure Disorder Additional Past Medical History / Comment(s): Hx Alcohol abuse, hx of colon CA 2005, Rt lung CA 2012 . [place], tinnitus. Prob w/ lt shoulder/neck w/ cervical disc prob, NT lt arm. Poss seizure hx, adm 04/2019 D/T alcohol withdrawal w/ Sx. Varicose veins. History of Any Multi-Drug Resistant Organisms: None Reported Past Surgical History: Bowel Resection, Hernia Repair, Orthopedic Surgery Additional Past Surgical History / Comment(s): Lung biopsy + for CA, partial resection. Colon CA w/ partial colectomy. ORIF Rt ankle. Hiatal hernia surg x2. Past Anesthesia/Blood Transfusion Reactions: No Reported Reaction Past Psychological History: Depression Smoking Status: Current every day smoker Past Alcohol Use History: Abuse, Daily Past Drug Use History: Marijuana - Past Family History Mother Family Medical History: Cancer Father Family Medical History: Respiratory Disorder Additional Family Medical History / Comment(s): "couldn't breath, lung problem" Medications and Allergies Home Medications Medication Instructions Recorded Confirmed Type Tamsulosin [Flomax] 0.4 mg PO DAILY 11/07/22 06/02/23 History Magnesium Oxide [Mag-Ox] 400 mg PO TID 90 Days #90 tab 11/09/22 06/02/23 Rx Pantoprazole [Protonix] 40 mg PO DAILY 90 Days #90 tab 11/09/22 06/02/23 Rx levETIRAcetam [Keppra] 500 mg PO Q12HR 90 Days #180 tab 11/09/22 06/02/23 Rx Cyclobenzaprine [Flexeril] 10 mg PO Q8H PRN 06/02/23 06/02/23 History Diphenoxylate HCl/Atropine 1 tab PO DAILY 06/02/23 06/02/23 History [Lomotil 2.5-0.025 mg Tablet] Divalproex ER [Depakote ER] 500 mg PO BID 06/02/23 06/02/23 History Allergies Allergy/AdvReac Type Severity Reaction Status Date / Time No Known Allergies Allergy Verified 06/02/23 18:25 Physical Exam Vitals: Vital Signs Temp Pulse Resp BP Pulse Ox 06/02/23 15:32 98.3 F 101 H 20 181/83 98 Intake and Output 06/02/23 06/02/23 06/02/23 06:59 14:59 22:59 Other: Weight 83.915 kg In general patient is sedated in no distress HEENT head normocephalic and atraumatic Neck is supple no JVD no goiter no lymphadenopathy no carotid bruit Chest examination reveals a scattered crackles bilaterally no wheezing Cardiac exam reveals regular heart sounds S1 and S2 no gallops no murmurs Abdomen is soft nontender no organomegaly with normal bowel sounds Extremity exam reveals no edema no cyanosis or clubbing Neurological examination reveals no gross focal deficits Results CBC & Chem 7: 06/03/23 05:58 06/03/23 05:58 Labs: Abnormal Lab Results - Last 24 Hours (Table) 06/02/23 06/02/23 06/02/23 Range/Units 16:02 16:02 16:02 RBC 3.33 L (4.30-5.90) m/uL Hgb 12.5 L (13.0-17.5) gm/dL Hct 35.7 L (39.0-53.0) % MCV 107.3 H (80.0-100.0) fL MCH 37.4 H (25.0-35.0) pg Plt Count 147 L (150-450) k/uL Lymphocytes # 0.8 L (1.0-4.8) k/uL Sodium 129 L (137-145) mmol/L Chloride 93 L (98-107) mmol/L Creatinine 0.62 L (0.66-1.25) mg/dL Glucose 111 H (74-99) mg/dL Ammonia (<30) umol/L U Tricyclic Antidepress Detected H (NotDetected) 06/02/23 Range/Units 16:02 RBC (4.30-5.90) m/uL Hgb (13.0-17.5) gm/dL Hct (39.0-53.0) % MCV (80.0-100.0) fL MCH (25.0-35.0) pg Plt Count (150-450) k/uL Lymphocytes # (1.0-4.8) k/uL Sodium (137-145) mmol/L Chloride (98-107) mmol/L Creatinine (0.66-1.25) mg/dL Glucose (74-99) mg/dL Ammonia 32 H (<30) umol/L U Tricyclic Antidepress (NotDetected) Assessment and Plan Plan: Alcohol withdrawal, with delirium tremens Underlying history of alcohol abuse Underlying history of hypertension Underlying history of COPD Underlying history of benign prostatic hypertrophy Previous history of seizure disorder maintained on Keppra and Depakote Underlying history of gastroesophageal reflux disease Noncompliance with medication patient stated that he has not taken any medication for the last 2 weeks Underlying history of tobacco abuse patient is current every day smoker. At this time patient is admitted to ICU, he is sedated and maintained on room air He received sedation due to severe tremors and agitation and impending seizures At this time will restart Keppra at 500 mg IV twice daily Home medications reviewed and reordered Critical care consultation was requested ENT consultation was requested in that regard to right maxillary sinus and nasal bone fracture Prognosis is guarded will follow closely
--- NOTE | 2023-06-03 10:30 | P.PN ---
Subjective Progress Note Date: 06/03/23 Sundar Peacock, is a 58-year-old male who presented to [facility] emergency room with a chief complaint of confusion and visual hallucination for the last 3 days, patient had a fall at home with head trauma, and was seen at a different Hospital emergency room, patient stated that he drinks alcohol daily. He was evaluated in the emergency room vital examination on presentation revealed a temperature of 98.3 pulse 101 respiration 20 blood pressure 181/83 pulse ox 98% on room air Laboratory data revealed a white blood count of 5.1 hemoglobin 12.5 platelet count 147 sodium 129 potassium 3.6 chloride 93 BUN 11 creatinine 0.63 ammonia level was elevated at 32 Testing in the emergency room revealed computed tomography scan of the brain reveals no acute bleed or mass affect, there was evidence of right maxillary and left nasal bone fractures with opacification of the right maxillary sinus, chest x-ray revealed no acute cardiopulmonary disease, EKG revealing normal sinus rhythm. Patient was admitted to medical floor for further evaluation and treatment, he was receiving IV Ativan, however he had worsening symptoms with tremors and agitation, he was transferred to intensive care unit. On 06/03/2023 patient was seen and examined in ICU he is sedated, sleeping constantly in no apparent distress, he is on room air, vital exam reveals a temperature of 96.9 pulse 75 respiration 28 blood pressure 164/103 pulse ox 95% on room air laboratory data reveals a white blood count of 4.2 hemoglobin 13.3 platelet count 157 BUN 7 creatinine 0.47, pulmonary critical care following, seizure medications reordered, will follow closely. Objective - Vital Signs Vital signs: Vital Signs Temp 96.9 F L 06/03/23 08:30 Pulse 67 06/03/23 09:30 Resp 20 06/03/23 09:30 BP 170/109 06/03/23 09:30 Pulse Ox 95 06/03/23 09:30 FiO2 Intake & Output 06/02/23 06/03/23 06/03/23 18:59 06:59 18:59 Intake Total 1010.313 275 Output Total 1701 450 Balance -690.687 -175 Weight 83.915 kg 76 kg Intake: Intake, IV Titration 1010.313 275 Amount Dexmedetomidine/0.9% NaCl 110.313 (Pmx) 400 mcg In Empty Bag 1 bag @ 0.2 MCG/KG/HR 4.196 mls/hr IV .[id number] [facility] Rx#:[id number] Magnesium Sulfate-D5w Pmx 200 1 gm In Dextrose/Water 1 100ml.bag @ 100 mls/hr IVPB Q1H [facility] Rx#: [id number] Potassium Chloride 10 meq 300 In Water For Injection 1 100ml.bag @ 100 mls/hr IVPB Q1H [facility] Rx#: [id number] Sodium Chloride 0.9% 1, 600 75 000 ml @ 75 mls/hr IV . [id number] [facility] Rx#:[id number] Output: Urine 1700 450 Stool 1 Other: Voiding Method Incontinent External Catheter # Voids 1 - Labs CBC & Chem 7: 06/03/23 05:58 06/03/23 05:58 Labs: Abnormal Lab Results - Last 24 Hours (Table) 06/02/23 06/02/23 06/02/23 Range/Units 16:02 16:02 16:02 RBC 3.33 L (4.30-5.90) m/uL Hgb 12.5 L (13.0-17.5) gm/dL Hct 35.7 L (39.0-53.0) % MCV 107.3 H (80.0-100.0) fL MCH 37.4 H (25.0-35.0) pg Plt Count 147 L (150-450) k/uL Lymphocytes # 0.8 L (1.0-4.8) k/uL Macrocytosis Sodium 129 L (137-145) mmol/L Chloride 93 L (98-107) mmol/L BUN (9-20) mg/dL Creatinine 0.62 L (0.66-1.25) mg/dL Glucose 111 H (74-99) mg/dL POC Glucose (mg/dL) (70-110) mg/dL Magnesium (1.6-2.3) mg/dL Ammonia (<30) umol/L U Tricyclic Antidepress Detected H (NotDetected) 06/02/23 06/02/23 06/03/23 Range/Units 16:02 23:09 05:58 RBC 3.59 L (4.30-5.90) m/uL Hgb (13.0-17.5) gm/dL Hct (39.0-53.0) % MCV 109.7 H (80.0-100.0) fL MCH 37.1 H (25.0-35.0) pg Plt Count (150-450) k/uL Lymphocytes # 0.7 L (1.0-4.8) k/uL Macrocytosis Marked A Sodium 132 L (137-145) mmol/L Chloride (98-107) mmol/L BUN (9-20) mg/dL Creatinine 0.53 L (0.66-1.25) mg/dL Glucose (74-99) mg/dL POC Glucose (mg/dL) (70-110) mg/dL Magnesium (1.6-2.3) mg/dL Ammonia 32 H (<30) umol/L U Tricyclic Antidepress (NotDetected) 06/03/23 06/03/23 Range/Units 05:58 06:19 RBC (4.30-5.90) m/uL Hgb (13.0-17.5) gm/dL Hct (39.0-53.0) % MCV (80.0-100.0) fL MCH (25.0-35.0) pg Plt Count (150-450) k/uL Lymphocytes # (1.0-4.8) k/uL Macrocytosis Sodium 135 L (137-145) mmol/L Chloride (98-107) mmol/L BUN 7 L (9-20) mg/dL Creatinine 0.47 L (0.66-1.25) mg/dL Glucose 118 H (74-99) mg/dL POC Glucose (mg/dL) 122 H (70-110) mg/dL Magnesium 1.5 L (1.6-2.3) mg/dL Ammonia (<30) umol/L U Tricyclic Antidepress (NotDetected)
[2023-06-03] MEDS: DIVALPROEX ER 500 MG TAB.ER.24H PO SCH ×2 (11:46→20:32)
[2023-06-03] MEDS: levETIRAcetam IV 500 MG/5 ML VIAL IVP SCH ×2 (11:49→20:32)
[2023-06-03] MEDS: TAMSULOSIN 0.4 MG CAP.ER.24H PO SCH (11:49)
--- NOTE | 2023-06-03 14:21 | P.CNPUL ---
History of Present Illness Consult date: 06/03/23 Requesting physician: Román Bryan Reason for consult: other (Acute alcohol withdrawal) Chief complaint: Confusion and visual hallucinations History of present illness: This is a 58-year-old white male, known history of alcoholism, patient was recently in a different hospital apparently with recent fall and head trauma requiring repair of lacerations in the forehead area, patient is known to be unsteady on his feet, and for the last few days apparently he was confused, and he had visual hallucinations. Brought to the ER by his son, and the patient was confused, he is supposedly a daily drinker, drinks both beer and whiskey. Patient has not been compliant with his medications which she supposedly takes for hypertension, and anxiety not compliant with his bronchodilators for his underlying COPD he is also known to have history of seizure disorder and presumably on Keppra which she has not been taking. In the ER, the patient was noted to have relatively normal temperature but his blood pressure was elevated O2 saturation was 98% on room air. He had slightly low sodium of 129, low platelets of 147 CT of the brain showed no evidence of acute bleed or mass. There was evidence of right maxillary and left nasal fractures with opacification of the right maxillary sinus. Chest x-ray showed no evidence of active disease. Considering his alcohol withdrawal symptoms, patient was admitted to the ICU for potential Precedex. His withdrawal symptoms could not be fully controlled with Ativan, and he is now on Precedex at 0.6 mcg/kg/h, he is also receiving Ativan intermittently. He is on IV fluid 0.9 normal saline at 75 mL per hour. Patient is an extremely poor historian, arousable, but seems to be agitated, restless, and does not follow any instructions. And nonverbal Review of Systems ROS unobtainable: due to mental status Past Medical History Past Medical History: Cancer, GERD/Reflux, Hearing Disorder / Deafness, Musculoskeletal Disorder, Seizure Disorder Additional Past Medical History / Comment(s): Hx Alcohol abuse, hx of colon CA 2005, Rt lung CA 2012 . [place], tinnitus. Prob w/ lt shoulder/neck w/ cervical disc prob, NT lt arm. Poss seizure hx, adm 04/2019 D/T alcohol withdrawal w/ Sx. Varicose veins. History of Any Multi-Drug Resistant Organisms: None Reported Past Surgical History: Bowel Resection, Hernia Repair, Orthopedic Surgery Additional Past Surgical History / Comment(s): Lung biopsy + for CA, partial resection. Colon CA w/ partial colectomy. ORIF Rt ankle. Hiatal hernia surg x2. Past Anesthesia/Blood Transfusion Reactions: No Reported Reaction Past Psychological History: Depression Smoking Status: Current every day smoker Past Alcohol Use History: Abuse, Daily Past Drug Use History: Marijuana - Past Family History Mother Family Medical History: Cancer Father Family Medical History: Respiratory Disorder Additional Family Medical History / Comment(s): "couldn't breath, lung problem" Medications and Allergies Home Medications Medication Instructions Recorded Confirmed Type Tamsulosin [Flomax] 0.4 mg PO DAILY 11/07/22 06/02/23 History Magnesium Oxide [Mag-Ox] 400 mg PO TID 90 Days #90 tab 11/09/22 06/02/23 Rx Pantoprazole [Protonix] 40 mg PO DAILY 90 Days #90 tab 11/09/22 06/02/23 Rx levETIRAcetam [Keppra] 500 mg PO Q12HR 90 Days #180 tab 11/09/22 06/02/23 Rx Cyclobenzaprine [Flexeril] 10 mg PO Q8H PRN 06/02/23 06/02/23 History Diphenoxylate HCl/Atropine 1 tab PO DAILY 06/02/23 06/02/23 History [Lomotil 2.5-0.025 mg Tablet] Divalproex ER [Depakote ER] 500 mg PO BID 06/02/23 06/02/23 History Allergies Allergy/AdvReac Type Severity Reaction Status Date / Time No Known Allergies Allergy Verified 06/02/23 18:25 Physical Exam Vitals: Vital Signs Temp Pulse Pulse Resp BP BP Pulse Ox 06/03/23 13:00 93 16 173/108 98 06/03/23 12:30 79 25 H 142/102 98 06/03/23 12:00 96.1 F L 76 19 158/97 98 06/03/23 11:30 69 19 158/97 96 06/03/23 11:00 77 15 136/94 97 06/03/23 10:00 63 16 141/83 95 06/03/23 09:30 67 20 170/109 95 06/03/23 09:00 84 21 164/103 96 06/03/23 08:30 96.9 F L 75 28 H 164/103 95 06/03/23 08:00 60 19 157/105 96 06/03/23 07:00 62 22 168/102 96 06/03/23 06:00 59 L 21 177/106 93 L 06/03/23 05:00 97.5 F L 68 10 L 166/100 96 06/03/23 04:00 63 19 166/103 94 L 06/03/23 03:00 62 20 166/98 95 06/03/23 02:30 64 21 166/98 96 06/03/23 02:00 66 22 166/98 92 L 06/03/23 01:30 64 21 162/102 94 L 06/03/23 01:00 67 23 161/99 94 L 06/03/23 00:58 67 20 161/99 94 L 06/03/23 00:30 68 23 161/99 95 06/03/23 00:00 97.6 F 72 22 157/96 95 06/02/23 23:52 20 06/02/23 23:30 74 20 162/98 93 L 06/02/23 23:00 79 18 147/91 93 L 06/02/23 22:49 23 06/02/23 22:30 85 20 156/102 89 L 06/02/23 22:15 86 21 156/102 90 L 06/02/23 22:00 90 21 156/102 94 L 06/02/23 21:45 90 21 166/96 92 L 06/02/23 21:33 33 H 06/02/23 20:00 98.1 F 105 H 20 118/80 97 06/02/23 18:37 96 18 168/74 98 06/02/23 15:32 98.3 F 101 H 20 181/83 98 Intake and Output 06/02/23 06/03/23 06/03/23 22:59 06:59 14:59 Intake Total 3.497 1006.816 644.721 Output Total 1701 750 Balance 3.497 -694.184 -105.279 Intake: Intake, IV Titration 3.497 1006.816 644.721 Amount Dexmedetomidine/0.9% NaCl 3.497 106.816 69.721 (Pmx) 400 mcg In Empty Bag 1 bag @ 0.2 MCG/KG/HR 4.196 mls/hr IV .[id number] [facility] Rx#:[id number] Magnesium Sulfate-D5w Pmx 200 1 gm In Dextrose/Water 1 100ml.bag @ 100 mls/hr IVPB Q1H [facility] Rx#: [id number] Potassium Chloride 10 meq 300 In Water For Injection 1 100ml.bag @ 100 mls/hr IVPB Q1H [facility] Rx#: [id number] Sodium Chloride 0.9% 1, 600 375 000 ml @ 75 mls/hr IV . [id number] [facility] Rx#:[id number] Output: Urine 1700 750 Stool 1 Other: Voiding Method Incontinent Incontinent Incontinent External Catheter External Catheter External Catheter # Voids 1 Weight 83.915 kg 76 kg Physical Exam: Revealed a 58-year-old white male, confused, and bit restless, does not follow any instructions and nonverbal. Head: Evidence of multiple sutured laceration on his forehead and evidence of deformity of the nasal bridge secondary to recent nasal fracture HEENT:[Neck is supple.] [No neck masses.] [No thyromegaly.] [No JVD.] Chest: [Clear throughout, no crackles, no rhonchi, no wheezes.] Cardiac Exam: [Normal S1 and S2, no S3 gallop, no murmur.] Abdomen: [Soft, nontender, no megaly, no rebound, no guarding, normal bowel sounds.] Extremities: [No clubbing, no edema, no cyanosis.] Neurological Exam: Patient is confused, seems to be anxious, does not follow any instructions, does not seem to be vertebral. According to the chart patient does have history of hearing disorder/deafness. Skin: Evidence of lacerations which have been repaired in the forehead area and abrasion of the left shoulder area Results - Laboratory Findings CBC and BMP: 06/03/23 05:58 06/03/23 05:58 PT/INR, D-dimer PT 10.5 sec (10.0-12.5) 06/02/23 16:02 INR 0.9 (<1.2) 06/02/23 16:02 Abnormal lab findings: Abnormal Labs 06/02/23 06/02/23 06/02/23 16:02 16:02 16:02 RBC 3.33 L Hgb 12.5 L Hct 35.7 L MCV 107.3 H MCH 37.4 H Plt Count 147 L Lymphocytes # 0.8 L Macrocytosis Sodium 129 L Chloride 93 L BUN Creatinine 0.62 L Glucose 111 H POC Glucose (mg/dL) Magnesium Ammonia U Tricyclic Antidepress Detected H 06/02/23 06/02/23 06/03/23 16:02 23:09 05:58 RBC 3.59 L Hgb Hct MCV 109.7 H MCH 37.1 H Plt Count Lymphocytes # 0.7 L Macrocytosis Marked A Sodium 132 L Chloride BUN Creatinine 0.53 L Glucose POC Glucose (mg/dL) Magnesium Ammonia 32 H U Tricyclic Antidepress 06/03/23 06/03/23 05:58 06:19 RBC Hgb Hct MCV MCH Plt Count Lymphocytes # Macrocytosis Sodium 135 L Chloride BUN 7 L Creatinine 0.47 L Glucose 118 H POC Glucose (mg/dL) 122 H Magnesium 1.5 L Ammonia U Tricyclic Antidepress - Diagnostic Findings Chest x-ray: image reviewed (As noted in HPI) Additional studies: CT head as noted in HPI Assessment and Plan Assessment: Impression: Acute alcohol withdrawal with delirium tremens History of alcoholism Recent head trauma with forehead lacerations requiring repair and maxillary/nasal fracture, addressed and handled at a different hospital History of benign essential hypertension Underlying COPD presently not active History of BPH History of seizure disorder maintained on Keppra and Depakote History of GERD Tobacco dependence syndrome Noncompliant with treatment Recommendation: Continue to monitor in the ICU Continue CIWA protocol Restart home meds including seizure medications Continue hydration ENT to assess for his right maxillary sinus and nasal bone fracture on Monday GI and DVT prophylaxis We will continue to follow Time with Patient: Greater than 30
[2023-06-03] MEDS: MAGNESIUM OXIDE 400 MG TAB PO SCH ×2 (16:59→20:32)
[2023-06-03 18:06] LABS: Glucose,Whole Blood 103 mg/dL (70-110)
[2023-06-04 00:10] LABS: Glucose,Whole Blood 93 mg/dL (70-110)
[2023-06-04] MEDS: HEPARIN SODIUM,PORCINE 5,000 UNIT/ML 1 ML VIAL SQ SCH ×4 (01:25→23:57)
[2023-06-04] MEDS: LORazepam 2 MG/ML INJ IV PRN (01:33)
[2023-06-04] MEDS: SODIUM CHLORIDE 0.9% 1,000 ML IV SCH ×2 (01:34→15:46)
[2023-06-04 05:55] LABS: Glucose,Whole Blood 100 mg/dL (70-110)
[2023-06-04 06:33] LABS: African American GFR (CKD) >90 (>60 ml/min/1.73 sqM); Anion Gap 8 mmol/L; Blood Urea Nitrogen 11 mg/dL (9-20); Calcium 8.9 mg/dL (8.4-10.2); Carbon Dioxide 22 mmol/L (22-30); Chloride 105 mmol/L (98-107); Glucose 85 mg/dL (74-99); Magnesium 1.8 mg/dL (1.6-2.3); Non-African American GFR(CKD) >90 (>60 ml/min/1.73 sqM); Potassium 3.7 mmol/L (3.5-5.1); Sodium 135 mmol/L (137-145)
[2023-06-04] MEDS ORDERED: Magnesium Replacement Protocol 1 EACH MISC MISCELLANE PRN (06:47)
[2023-06-04] MEDS ORDERED: MAGNESIUM SULFATE-D5W PMX 1 GM in DEXTROSE/WATER 1 100ML.BAG IVPB ONE (06:50)
[2023-06-04] MEDS ORDERED: POTASSIUM CHLORIDE ER 20 MEQ TAB.ER PO SCH (07:00)
[2023-06-04] MEDS: PANTOPRAZOLE 40 MG/10 ML VIAL IVP SCH (07:35)
[2023-06-04] MEDS: TAMSULOSIN 0.4 MG CAP.ER.24H PO SCH (07:36)
[2023-06-04] MEDS: DIVALPROEX ER 500 MG TAB.ER.24H PO SCH ×2 (07:37→21:47)
[2023-06-04] MEDS: levETIRAcetam IV 500 MG/5 ML VIAL IVP SCH ×3 (07:37→21:46)
[2023-06-04] MEDS: THIAMINE 100 MG TAB PO SCH (07:37)
[2023-06-04] MEDS: MAGNESIUM OXIDE 400 MG TAB PO SCH ×3 (10:06→21:47)
--- NOTE | 2023-06-04 10:17 | P.PN ---
Subjective Progress Note Date: 06/04/23 Sundar Peacock, is a 58-year-old male who presented to [facility] emergency room with a chief complaint of confusion and visual hallucination for the last 3 days, patient had a fall at home with head trauma, and was seen at a different Hospital emergency room, patient stated that he drinks alcohol daily. He was evaluated in the emergency room vital examination on presentation revealed a temperature of 98.3 pulse 101 respiration 20 blood pressure 181/83 pulse ox 98% on room air Laboratory data revealed a white blood count of 5.1 hemoglobin 12.5 platelet count 147 sodium 129 potassium 3.6 chloride 93 BUN 11 creatinine 0.63 ammonia level was elevated at 32 Testing in the emergency room revealed computed tomography scan of the brain reveals no acute bleed or mass affect, there was evidence of right maxillary and left nasal bone fractures with opacification of the right maxillary sinus, chest x-ray revealed no acute cardiopulmonary disease, EKG revealing normal sinus rhythm. Patient was admitted to medical floor for further evaluation and treatment, he was receiving IV Ativan, however he had worsening symptoms with tremors and agitation, he was transferred to intensive care unit. On 06/03/2023 patient was seen and examined in ICU he is sedated, sleeping constantly in no apparent distress, he is on room air, vital exam reveals a temperature of 96.9 pulse 75 respiration 28 blood pressure 164/103 pulse ox 95% on room air laboratory data reveals a white blood count of 4.2 hemoglobin 13.3 platelet count 157 BUN 7 creatinine 0.47, pulmonary critical care following, seizure medications reordered, will follow closely. On 06/04/2023 patient remains in the intensive care unit. Patient is more alert today Preedex has been off per nursing staff. Patient remains on alcohol withdrawal protocol. Current vital signs temp 97.7, heart rate 96, respiratory rate 23, blood pressure 149/92 with a pulse ox of 96% on room air Objective - Vital Signs Vital signs: Vital Signs Temp 97.7 F 06/04/23 08:00 Pulse 90 06/04/23 09:00 Resp 30 H 06/04/23 09:00 BP 132/79 06/04/23 09:00 Pulse Ox 95 06/04/23 09:00 FiO2 Intake & Output 06/03/23 06/04/23 06/04/23 18:59 06:59 18:59 Intake Total 1105.526 865.072 325 Output Total 1400 500 275 Balance -294.474 365.072 50 Weight 76 kg 77 kg Intake: Intake, IV Titration 1105.526 865.072 325 Amount Dexmedetomidine/0.9% NaCl 80.526 40.072 (Pmx) 400 mcg In Empty Bag 1 bag @ 0.2 MCG/KG/HR 4.196 mls/hr IV .[id number] [facility] Rx#:[id number] Magnesium Sulfate-D5w Pmx 100 1 gm In Dextrose/Water 1 100ml.bag @ 100 mls/hr IVPB [facility] Rx#: [id number] Magnesium Sulfate-D5w Pmx 200 1 gm In Dextrose/Water 1 100ml.bag @ 100 mls/hr IVPB Q1H [facility] Rx#: [id number] Sodium Chloride 0.9% 1, 825 825 225 000 ml @ 75 mls/hr IV . [id number] [facility] Rx#:[id number] Output: Urine 1400 500 275 Other: Voiding Method Incontinent Incontinent External Catheter External Catheter # Voids 1 - Exam In general patient is sedated in no distress HEENT head normocephalic and atraumatic Neck is supple no JVD no goiter no lymphadenopathy no carotid bruit Chest examination reveals a scattered crackles bilaterally no wheezing Cardiac exam reveals regular heart sounds S1 and S2 no gallops no murmurs Abdomen is soft nontender no organomegaly with normal bowel sounds Extremity exam reveals no edema no cyanosis or clubbing Neurological examination reveals no gross focal deficits - Labs CBC & Chem 7: 06/03/23 05:58 06/04/23 05:36 Labs: Abnormal Lab Results - Last 24 Hours (Table) 06/04/23 Range/Units 05:36 Sodium 135 L (137-145) mmol/L Creatinine 0.59 L (0.66-1.25) mg/dL Assessment and Plan Assessment: Alcohol withdrawal, with delirium tremens Underlying history of alcohol abuse Underlying history of hypertension Underlying history of COPD Underlying history of benign prostatic hypertrophy Previous history of seizure disorder maintained on Keppra and Depakote Underlying history of gastroesophageal reflux disease Noncompliance with medication patient stated that he has not taken any medication for the last 2 weeks Underlying history of tobacco abuse patient is current every day smoker. At this time patient is admitted to ICU, he is sedated and maintained on room air He received sedation due to severe tremors and agitation and impending seizures At this time will restart Keppra at 500 mg IV twice daily Home medications reviewed and reordered Critical care consultation was requested ENT consultation was requested in that regard to right maxillary sinus and nasal bone fracture Prognosis is guarded will follow closely
--- NOTE | 2023-06-04 14:44 | P.PN ---
Subjective Progress Note Date: 06/04/23 Principal diagnosis: Acute alcohol withdrawal and delirium tremens This is a 58-year-old white male, known history of alcoholism, patient was recently in a different hospital apparently with recent fall and head trauma requiring repair of lacerations in the forehead area, patient is known to be unsteady on his feet, and for the last few days apparently he was confused, and he had visual hallucinations. Brought to the ER by his son, and the patient was confused, he is supposedly a daily drinker, drinks both beer and whiskey. Patient has not been compliant with his medications which she supposedly takes for hypertension, and anxiety not compliant with his bronchodilators for his underlying COPD he is also known to have history of seizure disorder and presumably on Keppra which she has not been taking. In the ER, the patient was noted to have relatively normal temperature but his blood pressure was elevated O2 saturation was 98% on room air. He had slightly low sodium of 129, low platelets of 147 CT of the brain showed no evidence of acute bleed or mass. There was evidence of right maxillary and left nasal fractures with opacification of the right maxillary sinus. Chest x-ray showed no evidence of active disease. Considering his alcohol withdrawal symptoms, patient was admitted to the ICU for potential Precedex. His withdrawal symptoms could not be fully controlled with Ativan, and he is now on Precedex at 0.6 mcg/kg/h, he is also receiving Ativan intermittently. He is on IV fluid 0.9 normal saline at 75 mL per hour. Patient is an extremely poor historian, arousable, but seems to be agitated, restless, and does not follow any instructions. And nonverbal Patient was reevaluated today on 06/04/23, patient is doing great, feeling much better today compared to how he was yesterday. Patient is alert, oriented, not in any distress, he is mostly controlled with Ativan, not requiring any Precedex at this point. Patient is on room air, and does not seem to be agitated anymore. His agitation is seems to be fairly well controlled with Ativan only and no more Precedex. Labs today are basically unremarkable. Neurologically the patient is much better today, and I plan to transfer the patient out of the ICU to a regular medical floor. Continue the CIM[facility] protocol in the meantime. Objective - Vital Signs Vital signs: Vital Signs Temp 97.7 F 06/04/23 08:00 Pulse 97 06/04/23 11:00 Resp 19 06/04/23 11:00 BP 135/84 06/04/23 11:00 Pulse Ox 96 06/04/23 11:00 FiO2 Intake & Output 06/03/23 06/04/23 06/04/23 18:59 06:59 18:59 Intake Total 1105.526 865.072 475 Output Total 1400 500 276 Balance -294.474 365.072 199 Weight 76 kg 77 kg Intake: Intake, IV Titration 1105.526 865.072 475 Amount Dexmedetomidine/0.9% NaCl 80.526 40.072 (Pmx) 400 mcg In Empty Bag 1 bag @ 0.2 MCG/KG/HR 4.196 mls/hr IV .[id number] [facility] Rx#:[id number] Magnesium Sulfate-D5w Pmx 100 1 gm In Dextrose/Water 1 100ml.bag @ 100 mls/hr IVPB ONCE ONE Rx#: [id number] Magnesium Sulfate-D5w Pmx 200 1 gm In Dextrose/Water 1 100ml.bag @ 100 mls/hr IVPB Q1H [facility] Rx#: [id number] Sodium Chloride 0.9% 1, 825 825 375 000 ml @ 75 mls/hr IV . [id number] [facility] Rx#:[id number] Output: Urine 1400 500 275 Stool 1 Other: Voiding Method Incontinent Incontinent Incontinent External Catheter External Catheter External Catheter # Voids 1 1 # Bowel Movements 1 - Exam Physical Exam: Revealed a 58-year-old white male, awake, not in any distress. Follows simple instructions Head: Evidence of multiple sutured laceration on his forehead and evidence of deformity of the nasal bridge secondary to recent nasal fracture HEENT:[Neck is supple.] [No neck masses.] [No thyromegaly.] [No JVD.] Chest: [Clear throughout, no crackles, no rhonchi, no wheezes.] Cardiac Exam: [Normal S1 and S2, no S3 gallop, no murmur.] Abdomen: [Soft, nontender, no megaly, no rebound, no guarding, normal bowel sounds.] Extremities: [No clubbing, no edema, no cyanosis.] Neurological Exam: Alert and oriented 3 in no gross focal deficit Skin: Evidence of lacerations which have been repaired in the forehead area and abrasion of the left shoulder area - Labs CBC & Chem 7: 06/03/23 05:58 06/04/23 05:36 Labs: Abnormal Lab Results - Last 24 Hours (Table) 06/04/23 Range/Units 05:36 Sodium 135 L (137-145) mmol/L Creatinine 0.59 L (0.66-1.25) mg/dL Assessment and Plan Assessment: Impression: Acute alcohol withdrawal with delirium tremens significantly improve/resolved History of alcoholism Recent head trauma with forehead lacerations requiring repair and maxillary/nasal fracture, addressed and handled at a different hospital History of benign essential hypertension Underlying COPD presently not active History of BPH History of seizure disorder maintained on Keppra and Depakote History of GERD Tobacco dependence syndrome Noncompliant with treatment Recommendation: Transfer patient to a medical surgical floor Continue CIWA protocol Continue his home meds including seizure medications orally Continue hydration ENT to assess for his right maxillary sinus and nasal bone fracture on Monday GI and DVT prophylaxis Will follow as needed Time with Patient: Less than 30
[2023-06-04] MEDS: HYDROcodone/APAP 5-325MG 1 EACH TAB PO PRN (16:30)
[2023-06-05] MEDS: SODIUM CHLORIDE 0.9% 1,000 ML IV SCH ×2 (01:00→18:00)
[2023-06-05 02:16] LABS: Glucose,Whole Blood 132 mg/dL (70-110)
[2023-06-05] MEDS: LORazepam 2 MG/ML INJ IV PRN (03:01)
[2023-06-05 04:25] LABS: HCT 35.6 % (39.0-53.0); MCH 36.9 pg (25.0-35.0); MCHC 33.7 g/dL (31.0-37.0); MCV 109.6 fL (80.0-100.0); Macrocytosis Marked; Mean Platelet Volume 7.9; Platelet Count 192 k/uL (150-450); RBC 3.24 m/uL (4.30-5.90); RDW 13.4 % (11.5-15.5); WBC 4.7 k/uL (3.8-10.6)
[2023-06-05 04:28] LABS: ALT 15 U/L (4-49); AST 24 U/L (17-59); African American GFR (CKD) >90 (>60 ml/min/1.73 sqM); Albumin 3.4 g/dL (3.5-5.0); Alkaline Phosphatase 40 U/L (38-126); Anion Gap 6 mmol/L; Blood Urea Nitrogen 11 mg/dL (9-20); Calcium 8.7 mg/dL (8.4-10.2); Carbon Dioxide 25 mmol/L (22-30); Chloride 100 mmol/L (98-107); Glucose 107 mg/dL (74-99); Magnesium 1.4 mg/dL (1.6-2.3); Non-African American GFR(CKD) >90 (>60 ml/min/1.73 sqM); Potassium 4.1 mmol/L (3.5-5.1); Sodium 131 mmol/L (137-145); Total Bilirubin 0.5 mg/dL (0.2-1.3); Total Protein 5.8 g/dL (6.3-8.2)
[2023-06-05 04:53] LABS: Eosinophils # (M) 0.33 k/uL (0-0.7); Lymphocytes # (M) 0.85 k/uL (1.0-4.8); Monocytes # (M) 0.75 k/uL (0-1.0); Neutrophils # (M) 2.77 k/uL (1.3-7.7); Neutrophils % (M) 59 %; Nucleated Red Blood Cells 0 /100 WBC (0-0); Total Cells Counted 100
[2023-06-05] MEDS: HYDROcodone/APAP 5-325MG 1 EACH TAB PO PRN (06:27)
[2023-06-05 06:49] LABS: Glucose,Whole Blood 103 mg/dL (70-110)
[2023-06-05] MEDS: MAGNESIUM SULFATE-D5W PMX 1 GM in DEXTROSE/WATER 1 100ML.BAG IVPB SCH ×2 (06:55→08:30)
[2023-06-05] MEDS: hydrALAZINE HCL 20 MG/ML 1 ML VIAL IVP PRN (06:59)
[2023-06-05] MEDS: HEPARIN SODIUM,PORCINE 5,000 UNIT/ML 1 ML VIAL SQ SCH ×2 (08:30→16:31)
[2023-06-05] MEDS: DIVALPROEX ER 500 MG TAB.ER.24H PO SCH ×2 (08:32→21:05)
[2023-06-05] MEDS: levETIRAcetam IV 500 MG/5 ML VIAL IVP SCH (08:33)
[2023-06-05] MEDS: PANTOPRAZOLE 40 MG/10 ML VIAL IVP SCH (08:33)
[2023-06-05] MEDS: MAGNESIUM OXIDE 400 MG TAB PO SCH ×3 (08:34→21:05)
[2023-06-05] MEDS: THIAMINE 100 MG TAB PO SCH (08:34)
[2023-06-05] MEDS: TAMSULOSIN 0.4 MG CAP.ER.24H PO SCH (08:34)
[2023-06-05 11:39] LABS: Glucose,Whole Blood 123 mg/dL (70-110)
[2023-06-05 18:03] LABS: Glucose,Whole Blood 122 mg/dL (70-110)
--- NOTE | 2023-06-05 18:05 | P.PN ---
Subjective Progress Note Date: 06/05/23 Sundar Peacock, is a 58-year-old male who presented to [facility] emergency room with a chief complaint of confusion and visual hallucination for the last 3 days, patient had a fall at home with head trauma, and was seen at a different Hospital emergency room, patient stated that he drinks alcohol daily. He was evaluated in the emergency room vital examination on presentation revealed a temperature of 98.3 pulse 101 respiration 20 blood pressure 181/83 pulse ox 98% on room air Laboratory data revealed a white blood count of 5.1 hemoglobin 12.5 platelet count 147 sodium 129 potassium 3.6 chloride 93 BUN 11 creatinine 0.63 ammonia level was elevated at 32 Testing in the emergency room revealed computed tomography scan of the brain reveals no acute bleed or mass affect, there was evidence of right maxillary and left nasal bone fractures with opacification of the right maxillary sinus, chest x-ray revealed no acute cardiopulmonary disease, EKG revealing normal sinus rhythm. Patient was admitted to medical floor for further evaluation and treatment, he was receiving IV Ativan, however he had worsening symptoms with tremors and agitation, he was transferred to intensive care unit. On 06/03/2023 patient was seen and examined in ICU he is sedated, sleeping constantly in no apparent distress, he is on room air, vital exam reveals a temperature of 96.9 pulse 75 respiration 28 blood pressure 164/103 pulse ox 95% on room air laboratory data reveals a white blood count of 4.2 hemoglobin 13.3 platelet count 157 BUN 7 creatinine 0.47, pulmonary critical care following, seizure medications reordered, will follow closely. On 06/04/2023 patient remains in the intensive care unit. Patient is more alert today Preedex has been off per nursing staff. Patient remains on alcohol withdrawal protocol. Current vital signs temp 97.7, heart rate 96, respiratory rate 23, blood pressure 149/92 with a pulse ox of 96% on room air On 06/05/2023 patient was seen and examined in the ICU he is alert and oriented in no apparent distress, he is answering questions appropriately, he denies any fever or chills no headache or dizziness no chest pain no shortness of breath no cough no nausea or vomiting no abdominal pain no diarrhea and no urinary symptoms. Patient is taking medications orally now. He was counseled in length in regards to importance of taking his seizures medication on a regular basis, he was counseled in length in regards to abstinence from alcohol. If he remains stable he will be discharged to home tomorrow. Objective - Vital Signs Vital signs: Vital Signs Temp 98.2 F 06/04/23 16:00 Pulse 81 06/04/23 22:00 Resp 13 06/05/23 07:45 BP 163/91 06/04/23 22:00 Pulse Ox 98 06/04/23 22:00 FiO2 Intake & Output 06/04/23 06/05/23 06/05/23 18:59 06:59 18:59 Intake Total 1762 849 8443 Output Total 736 340 5282 Balance 399 -100 -1350 Intake: IV 575 Sodium Chloride 0.9% 1, 575 000 ml @ 75 mls/hr IV . [id number] [facility] Rx#:[id number] Intake, IV Titration 1000 300 675 Amount Magnesium Sulfate-D5w Pmx 100 1 gm In Dextrose/Water 1 100ml.bag @ 100 mls/hr IVPB ONCE ONE Rx#: [id number] Sodium Chloride 0.9% 1, 900 300 675 000 ml @ 75 mls/hr IV . [id number] [facility] Rx#:[id number] Output: Urine 754 028 9772 Stool 1 Other: Voiding Method Incontinent Incontinent Urinal External Catheter External Catheter Incontinent # Voids 1 1 # Bowel Movements 1 2 - Exam In general patient is alert and oriented x 3 in no distress HEENT head normocephalic and atraumatic Neck is supple no JVD no goiter no lymphadenopathy no carotid bruit Chest examination is clear to auscultation no crackles no wheezing Cardiac exam reveals regular heart sounds S1 and S2 no gallops no murmurs Abdomen is soft nontender no organomegaly with normal bowel sounds Extremity exam reveals no edema no cyanosis or clubbing Neurological examination reveals no gross focal deficits - Labs CBC & Chem 7: 06/05/23 03:48 06/05/23 03:48 Labs: Abnormal Lab Results - Last 24 Hours (Table) 06/05/23 06/05/23 06/05/23 Range/Units 02:14 03:48 03:48 RBC 3.24 L (4.30-5.90) m/uL Hgb 12.0 L (13.0-17.5) gm/dL Hct 35.6 L (39.0-53.0) % MCV 109.6 H (80.0-100.0) fL MCH 36.9 H (25.0-35.0) pg Lymphocytes # (Manual) 0.85 L (1.0-4.8) k/uL Macrocytosis Marked A Sodium 131 L (137-145) mmol/L Creatinine 0.62 L (0.66-1.25) mg/dL Glucose 107 H (74-99) mg/dL POC Glucose (mg/dL) 132 H (70-110) mg/dL Magnesium 1.4 L (1.6-2.3) mg/dL Total Protein 5.8 L (6.3-8.2) g/dL Albumin 3.4 L (3.5-5.0) g/dL 06/05/23 Range/Units 11:37 RBC (4.30-5.90) m/uL Hgb (13.0-17.5) gm/dL Hct (39.0-53.0) % MCV (80.0-100.0) fL MCH (25.0-35.0) pg Lymphocytes # (Manual) (1.0-4.8) k/uL Macrocytosis Sodium (137-145) mmol/L Creatinine (0.66-1.25) mg/dL Glucose (74-99) mg/dL POC Glucose (mg/dL) 123 H (70-110) mg/dL Magnesium (1.6-2.3) mg/dL Total Protein (6.3-8.2) g/dL Albumin (3.5-5.0) g/dL Assessment and Plan Plan: Alcohol withdrawal, with delirium tremens Underlying history of alcohol abuse Underlying history of hypertension Underlying history of COPD Underlying history of benign prostatic hypertrophy Previous history of seizure disorder maintained on Keppra and Depakote Underlying history of gastroesophageal reflux disease Noncompliance with medication patient stated that he has not taken any medication for the last 2 weeks Underlying history of tobacco abuse patient is current every day smoker. At this time patient is admitted to ICU, he is sedated and maintained on room air He received sedation due to severe tremors and agitation and impending seizures At this time will restart Keppra at 500 mg IV twice daily Home medications reviewed and reordered Critical care consultation was requested ENT consultation was requested in that regard to right maxillary sinus and nasal bone fracture Prognosis is guarded will follow closely
[2023-06-05] MEDS: levETIRAcetam 500 MG TAB PO SCH (21:05)
[2023-06-06] MEDS: HEPARIN SODIUM,PORCINE 5,000 UNIT/ML 1 ML VIAL SQ SCH ×2 (00:14→09:25)
[2023-06-06 04:14] VITALS: BP 144/86; PULSE 83; RESP 18; TEMP 98.1
[2023-06-06] MEDS: MAGNESIUM SULFATE-D5W PMX 1 GM in DEXTROSE/WATER 1 100ML.BAG IVPB SCH ×2 (05:24→06:09)
[2023-06-06] MEDS: MAGNESIUM OXIDE 400 MG TAB PO SCH (09:25)
[2023-06-06] MEDS: DIVALPROEX ER 500 MG TAB.ER.24H PO SCH (09:25)
[2023-06-06] MEDS: PANTOPRAZOLE 40 MG/10 ML VIAL IVP SCH (09:25)
[2023-06-06] MEDS: THIAMINE 100 MG TAB PO SCH (09:25)
[2023-06-06] MEDS: TAMSULOSIN 0.4 MG CAP.ER.24H PO SCH (09:25)
[2023-06-06] MEDS: levETIRAcetam 500 MG TAB PO SCH (09:25)
[2023-06-06] MEDS: HYDROcodone/APAP 5-325MG 1 EACH TAB PO PRN (09:35)
== END 2023-06-06 17:50 | disposition home health service (06) | DRG 897 ==
LOC: EC 15:27 → 3SCARD 17:15 → 2SICU 21:27
PROVIDERS: ADMIT Internal Medicine; ATTEND Internal Medicine
DX: F10.231 Alcohol dependence with withdrawal delirium (principal); F05 Delirium due to known physiological condition; E87.1 Hypo-osmolality and hyponatremia; J44.9 Chronic obstructive pulmonary disease, unspecified; G40.909 Epilepsy, unspecified, not intractable, without status epilepticus; I10 Essential (primary) hypertension; H91.90 Unspecified hearing loss, unspecified ear; Y90.0 Blood alcohol level of less than 20 mg/100 ml; N40.0 Benign prostatic hyperplasia without lower urinary tract symptoms; R47.81 Slurred speech; S01.81XA Laceration without foreign body of other part of head, initial encounter; S02.2XXA Fracture of nasal bones, initial encounter for closed fracture; S40.212A Abrasion of left shoulder, initial encounter; F32.A Depression, unspecified; H93.19 Tinnitus, unspecified ear; K21.9 Gastro-esophageal reflux disease without esophagitis; I83.90 Asymptomatic varicose veins of unspecified lower extremity; T50.916A Underdosing of multiple unspecified drugs, medicaments and biological substances, initial encounter; Z91.128 Patient's intentional underdosing of medication regimen for other reason; Z91.199 Patient's noncompliance with other medical treatment and regimen due to unspecified reason; Z79.899 Other long term (current) drug therapy; F17.200 Nicotine dependence, unspecified, uncomplicated; Z85.118 Personal history of other malignant neoplasm of bronchus and lung; Z85.038 Personal history of other malignant neoplasm of large intestine; W19.XXXA Unspecified fall, initial encounter; Y92.009 Unspecified place in unspecified non-institutional (private) residence as the place of occurrence of the external cause
CPT/HCPCS: 36415; 70450; 71046; 80048; 80053; 80306; 80320; 81003; 82140; 83735; 84484; 85025; 85610; 85730; 93005; 96361; 96372; 96374; 96376; 99285

== ENCOUNTER 2023-07-06 11:11 | Inpatient (IN) | payer MEDICARE, OTHER ==
--- NOTE | 2023-07-06 13:16 | ED ---
General Adult HPI - General Source: patient Mode of arrival: EMS Limitations: no limitations <Omer Webb - Last Filed: 07/06/23 13:16> <Jaya Silva - Last Filed: 07/07/23 04:39> - General Chief complaint: Weakness Stated complaint: Mental health Time Seen by Provider: 07/06/23 13:15 - History of Present Illness Initial comments: 58-year-old male presenting to the ED with a chief complaint of dizziness. P adrianne notes that this is an ongoing problem however recently has been worsening. States that if he stands too long feels as if he is going to lose his balance and fall and patient reports secondary to symptoms has fallen multiple times. Does report that he is hit his head multiple times. Denies being on blood thinners. Denies being injured secondary to the fall. (Omer Webb) 58-year-old male presenting with chief complaint of dizziness. Patient was brought in by family member who states that they were concerned because the patient was having hallucinations. Family member petitioned the patient. He is somewhat difficult to obtain a history from. Patient is an alcoholic, unable to determine when his last drink was or how much he normally drinks. The patient indicates that he has had an ongoing problem with dizziness. He states that his medications are changed frequently and this seems to make his dizziness worse. He reports that he has hit his head multiple times. He denies any blood thinners. He denies any other injuries. he denies chest pain, difficulty breathing, abdominal pain, nausea, vomiting. (Jaya Silva) - Related Data Home Medications Medication Instructions Recorded Confirmed Tamsulosin [Flomax] 0.4 mg PO DAILY 11/07/22 07/06/23 Cyclobenzaprine [Flexeril] 10 mg PO Q8H PRN 06/02/23 07/06/23 Divalproex ER [Depakote ER] 500 mg PO BID 06/02/23 07/06/23 Diphenoxylate HCl/Atropine 1 tab PO DAILY 07/06/23 07/06/23 [Lomotil 2.5-0.025 mg Tablet] Loperamide HCl [Imodium A-D] 2 - 4 mg PO QID PRN 07/06/23 07/06/23 Previous Rx's Medication Instructions Recorded Magnesium Oxide [Mag-Ox] 400 mg PO TID 90 Days #90 tab 11/09/22 Pantoprazole [Protonix] 40 mg PO DAILY 90 Days #90 tab 11/09/22 levETIRAcetam [Keppra] 500 mg PO Q12HR 90 Days #180 tab 11/09/22 Allergies Allergy/AdvReac Type Severity Reaction Status Date / Time No Known Allergies Allergy Verified 07/06/23 21:50 Review of Systems ROS Other: All systems not noted in ROS Statement are negative. <Omer Webb - Last Filed: 07/06/23 13:16> ROS Other: All systems not noted in ROS Statement are negative. <Jaya Silva - Last Filed: 07/07/23 04:39> ROS Statement: Those systems with pertinent positive or pertinent negative responses have been documented in the HPI. Past Medical History Past Medical History: Cancer, GERD/Reflux, Hearing Disorder / Deafness, Musculoskeletal Disorder, Seizure Disorder Additional Past Medical History / Comment(s): Hx Alcohol abuse, hx of colon CA 2005, Rt lung CA 2012 . [place], tinnitus. Prob w/ lt shoulder/neck w/ cervical disc prob, NT lt arm. Poss seizure hx, adm 04/2019 D/T alcohol withdrawal w/ Seizures. Varicose veins. History of Any Multi-Drug Resistant Organisms: None Reported Past Surgical History: Bowel Resection, Hernia Repair, Orthopedic Surgery Additional Past Surgical History / Comment(s): Lung biopsy + for CA, partial resection. Colon CA w/ partial colectomy. ORIF Rt ankle. Hiatal hernia surg x2. Past Anesthesia/Blood Transfusion Reactions: No Reported Reaction Past Psychological History: Depression Smoking Status: Current every day smoker - Past Family History Mother Family Medical History: Cancer Father Family Medical History: Respiratory Disorder Additional Family Medical History / Comment(s): "couldn't breath, lung problem" <Omer Webb - Last Filed: 07/06/23 13:16> General Exam Limitations: no limitations <Omer Webb - Last Filed: 07/06/23 13:16> General appearance: alert, in no apparent distress Head exam: Present: atraumatic, normocephalic Eye exam: Present: normal appearance Neck exam: Present: normal inspection Respiratory exam: Present: normal lung sounds bilaterally. Absent: respiratory distress, wheezes, rales, rhonchi, stridor Cardiovascular Exam: Present: regular rate, normal rhythm, normal heart sounds. Absent: systolic murmur, diastolic murmur, rubs, gallop, clicks Neurological exam: Present: alert, altered Psychiatric exam: Present: normal affect, normal mood Skin exam: Present: warm, dry <Jaya Silva - Last Filed: 07/07/23 04:39> - General Exam Comments Initial Comments: Visual Physical Exam Vital signs reviewed General: Well-appearing, nontoxic, no acute distress. Poor historian. ENT: Airway patent Chest: Nonlabored breathing Skin: No visual rash, normal skin tone Neuro: Alert. Musculoskeletal: No gross abnormalities (Omer Webb) Course Vital Signs 07/06/23 07/06/23 07/06/23 12:13 20:43 21:00 Temperature 98.0 F Pulse Rate 88 88 85 Respiratory 20 Rate Blood Pressure 160/95 144/97 O2 Sat by Pulse 99 99 97 Oximetry 07/07/23 01:22 Temperature 98.2 F Pulse Rate 82 Respiratory 16 Rate Blood Pressure 136/88 O2 Sat by Pulse 97 Oximetry Medical Decision Making <Omer Webb - Last Filed: 07/06/23 13:16> - Lab Data Result diagrams: 07/06/23 13:52 07/06/23 13:52 <Jaya Silva - Last Filed: 07/07/23 04:39> - Medical Decision Making Quicknote portion performed. Signed Omer Webb PA-C (Omer Webb) Was pt. sent in by a medical professional or institution ([facility], [facility], urgent care, hospital, or fdc...) When possible be specific @ -No Did you speak to anyone other than the patient for history (EMS, parent, family, police, friend...)? What history was obtained from this source @ -No Did you review nursing and triage notes (agree or disagree)? Why? @ -I reviewed and agree with nursing and triage notes Were old charts reviewed (outside hosp., previous admission, EMS record, old EKG, old radiological studies, urgent care reports/EKG's, fdc records)? Report findings @ -No old charts were reviewed Differential Diagnosis (chest pain, altered mental status, abdominal pain women, abdominal pain men, vaginal bleeding, weakness, fever, dyspnea, syncope, headache, dizziness, GI bleed, back pain, seizure, CVA, palpatations, mental health, musculoskeletal)? @ -MDM Differential Dizziness: Benign paroxysmal positional Vertigo, Menieres disease, otitis media, acoustic neuroma, vertebrobasilar insufficiency, cerebellar stroke, encephalitis, hypovolemic, arrhythmia, coronary artery syndrome, anemia this is not meant to be an all-inclusive list EKG interpreted by me (3pts min.). @ -As above X-rays interpreted by me (1pt min.). @ -None done CT interpreted by me (1pt min.). @ -Initial CT shows postsurgical changes and degenerative change of the cervi olena spine without evidence of acute trauma. There is an abnormal parenchymal density which appears to most likely be secondary to registration artifact and not acute hemorrhage. Repeat CT shows mild to moderate generalized atrophy. No acute intracranial abnormality seen. The questioned possible intracranial hemorrhage on the exam earlier today is compatible with being hardening artifact as it is not reproduced. There is also moderate to severe chronic ethmoid and left maxillary sinus disease. U/S interpreted by me (1pt. min.). @ -None done What testing was considered but not performed or refused? (CT, X-rays, U/S, labs)? Why? @ -None What meds were considered but not given or refused? Why? @ -None Did you discuss the management of the patient with other professionals (professionals i.e. , PA, SHEET HEATER, lab, RT, psych nurse, medical social consultant, suspect artist, teacher, adult probation officer, pillowcase cutter)? Give summary @ -I spoke with Dr. Stark who accepted admission Was smoking cessation discussed for >3mins.? @ -No Was critical care preformed (if so, how long)? @ -No Were there social determinants of health that impacted care today? How? (Homelessness, low income, unemployed, alcoholism, drug addiction, transportation, low edu. Level, literacy, decrease access to med. care, half-way, rehab)? @ -No Was there de-escalation of care discussed even if they declined (Discuss DNR or withdrawal of care, Hospice)? DNR status @ -No What co-morbidities impacted this encounter? (DM, HTN, Smoking, COPD, CAD, Cancer, CVA, ARF, Chemo, Hep., AIDS, mental health diagnosis, sleep apnea, morb id obesity)? @ -Alcoholism Was patient admitted / discharged? Hospital course, mention meds given and route, prescriptions, significant lab abnormalities, going to OR and other pertinent info. @ -58-year-old male presenting with chief complaint of dizziness. It was reported by family members of the patient was having hallucinations, the patient was then petitioned by his family member. Sodium 127 magnesium 1.3, patient is receiving IV fluids and magnesium replacement. Negative troponin. No leukocytosis or anemia. Serum alcohol less than 10. Urine shows no infectious process or bleeding. Initial CT of the brain shows artifact that is questionable for hemorrhage, repeat CT shows no acute process. Artifact is not redemonstrated. No fracture of the cervical spine. Patient's altered mental status and dizziness are likely due to his alcoholism and possible withdrawal. He is started on alcohol withdrawal protocol with Ativan. He will be admitted for alcohol withdrawal. Psychiatry is consulted due to petitioned by family member. I discussed this case with my attending Dr. Foreman Undiagnosed new problem with uncertain prognosis? @ -No Drug Therapy requiring intensive monitoring for toxicity (Heparin, Nitro, Insulin, Cardizem)? @ -No Were any procedures done? @ -No Diagnosis/symptom? @ -Alcohol withdrawal Acute, or Chronic, or Acute on Chronic? @ -Acute Uncomplicated (without systemic symptoms) or Complicated (systemic symptoms)? @ -Complicated Side effects of treatment? @ -No Exacerbation, Progression, or Severe Exacerbation? @ -No Poses a threat to life or bodily function? How? (Chest pain, [place], [place], pneumonia, PE, COPD, DKA, ARF, appy, cholecystitis, CVA, Diverticulitis, Homicidal, Lorenza cidal, threat to staff... and all critical care pts) @ -Yes (Jaya Silva) - Lab Data Lab Results 07/06/23 07/06/23 07/06/23 Range/Units 13:52 13:52 13:52 WBC 6.2 (3.8-10.6) k/uL RBC 3.83 L (4.30-5.90) m/uL Hgb 14.4 (13.0-17.5) gm/dL Hct 40.2 (39.0-53.0) % MCV 105.2 H (80.0-100.0) fL MCH 37.7 H (25.0-35.0) pg MCHC 35.8 (31.0-37.0) g/dL RDW 12.3 (11.5-15.5) % Plt Count 178 (150-450) k/uL MPV 7.5 Neutrophils % 66 % Lymphocytes % 14 % Monocytes % 11 % Eosinophils % 7 % Basophils % 1 % Neutrophils # 4.1 (1.3-7.7) k/uL Lymphocytes # 0.9 L (1.0-4.8) k/uL Monocytes # 0.7 (0-1.0) k/uL Eosinophils # 0.4 (0-0.7) k/uL Basophils # 0.1 (0-0.2) k/uL Macrocytosis Slight PT 10.5 (10.0-12.5) sec INR 0.9 (<1.2) APTT 26.7 (22.0-30.0) sec Sodium (137-145) mmol/L Potassium (3.5-5.1) mmol/L Chloride (98-107) mmol/L Carbon Dioxide (22-30) mmol/L Anion Gap mmol/L BUN (9-20) mg/dL Creatinine (0.66-1.25) mg/dL Est GFR (CKD-EPI)AfAm (>60 ml/min/1.73 sqM) Est GFR (CKD-EPI)NonAf (>60 ml/min/1.73 sqM) Glucose (74-99) mg/dL Calcium (8.4-10.2) mg/dL Magnesium (1.6-2.3) mg/dL Total Bilirubin (0.2-1.3) mg/dL AST (17-59) U/L ALT (4-49) U/L Alkaline Phosphatase (38-126) U/L Troponin I (0.000-0.034) ng/mL Total Protein (6.3-8.2) g/dL Albumin (3.5-5.0) g/dL Urine Color Colorless Urine Appearance Clear (Clear) Urine pH 5.0 (5.0-8.0) Ur Specific [place] 1.009 (1.001-1.035) Urine Protein Negative (Negative) Urine Glucose (UA) Negative (Negative) Urine Ketones Negative (Negative) Urine Blood Negative (Negative) Urine Nitrite Negative (Negative) Urine Bilirubin Negative (Negative) Urine Urobilinogen 0.2 (<2.0) mg/dL Ur Leukocyte Esterase Negative (Negative) Serum Alcohol mg/dL 07/06/23 07/06/23 07/06/23 Range/Units 13:52 13:52 22:30 WBC (3.8-10.6) k/uL RBC (4.30-5.90) m/uL Hgb (13.0-17.5) gm/dL Hct (39.0-53.0) % MCV (80.0-100.0) fL MCH (25.0-35.0) pg MCHC (31.0-37.0) g/dL RDW (11.5-15.5) % Plt Count (150-450) k/uL MPV Neutrophils % % Lymphocytes % % Monocytes % % Eosinophils % % Basophils % % Neutrophils # (1.3-7.7) k/uL Lymphocytes # (1.0-4.8) k/uL Monocytes # (0-1.0) k/uL Eosinophils # (0-0.7) k/uL Basophils # (0-0.2) k/uL Macrocytosis PT (10.0-12.5) sec INR (<1.2) APTT (22.0-30.0) sec Sodium 127 L (137-145) mmol/L Potassium 3.5 (3.5-5.1) mmol/L Chloride 90 L (98-107) mmol/L Carbon Dioxide 26 (22-30) mmol/L Anion Gap 11 mmol/L BUN 12 (9-20) mg/dL Creatinine 0.56 L (0.66-1.25) mg/dL Est GFR (CKD-EPI)AfAm >90 (>60 ml/min/1.73 sqM) Est GFR (CKD-EPI)NonAf >90 (>60 ml/min/1.73 sqM) Glucose 77 (74-99) mg/dL Calcium 9.2 (8.4-10.2) mg/dL Magnesium 1.3 L (1.6-2.3) mg/dL Total Bilirubin 0.7 (0.2-1.3) mg/dL AST 36 (17-59) U/L ALT 17 (4-49) U/L Alkaline Phosphatase 61 (38-126) U/L Troponin I 0.013 (0.000-0.034) ng/mL Total Protein 7.3 (6.3-8.2) g/dL Albumin 4.3 (3.5-5.0) g/dL Urine Color Urine Appearance (Clear) Urine pH (5.0-8.0) Ur Specific [place] (1.001-1.035) Urine Protein (Negative) Urine Glucose (UA) (Negative) Urine Ketones (Negative) Urine Blood (Negative) Urine Nitrite (Negative) Urine Bilirubin (Negative) Urine Urobilinogen (<2.0) mg/dL Ur Leukocyte Esterase (Negative) Serum Alcohol <10 mg/dL Disposition <Omer Webb - Last Filed: 07/06/23 13:16> Time of Disposition: 22:47 <Jaya Silva - Last Filed: 07/07/23 04:39> Clinical Impression: Alcohol withdrawal, AMS (altered mental status) Disposition: ADMITTED IP TO THIS HOSP Condition: Fair
[2023-07-06 14:23] LABS: Basophils # (A) 0.1 k/uL (0-0.2); Basophils % (A) 1 %; Eosinophils # (A) 0.4 k/uL (0-0.7); Eosinophils % (A) 7 %; HCT 40.2 % (39.0-53.0); HGB 14.4 gm/dL (13.0-17.5); Lymphocytes # (A) 0.9 k/uL (1.0-4.8); Lymphocytes % (A) 14 %; MCH 37.7 pg (25.0-35.0); MCHC 35.8 g/dL (31.0-37.0); MCV 105.2 fL (80.0-100.0); Macrocytosis Slight; Mean Platelet Volume 7.5; Monocytes # (A) 0.7 k/uL (0-1.0); Monocytes % (A) 11 %; Neutrophils # (A) 4.1 k/uL (1.3-7.7); Neutrophils % (A) 66 %; Platelet Count 178 k/uL (150-450); RBC 3.83 m/uL (4.30-5.90); RDW 12.3 % (11.5-15.5); WBC 6.2 k/uL (3.8-10.6)
[2023-07-06 14:31] LABS: INR 0.9 (<1.2); Partial Thromboplastin Time 26.7 sec (22.0-30.0); Prothrombin Time 10.5 sec (10.0-12.5)
[2023-07-06 14:48] LABS: ALT 17 U/L (4-49); AST 36 U/L (17-59); African American GFR (CKD) >90 (>60 ml/min/1.73 sqM); Albumin 4.3 g/dL (3.5-5.0); Alkaline Phosphatase 61 U/L (38-126); Anion Gap 11 mmol/L; Blood Urea Nitrogen 12 mg/dL (9-20); Calcium 9.2 mg/dL (8.4-10.2); Carbon Dioxide 26 mmol/L (22-30); Chloride 90 mmol/L (98-107); Glucose 77 mg/dL (74-99); Magnesium 1.3 mg/dL (1.6-2.3); Non-African American GFR(CKD) >90 (>60 ml/min/1.73 sqM); Potassium 3.5 mmol/L (3.5-5.1); Sodium 127 mmol/L (137-145); Total Bilirubin 0.7 mg/dL (0.2-1.3); Total Protein 7.3 g/dL (6.3-8.2)
--- NOTE | 2023-07-06 16:04 | CT ---
EXAMINATION TYPE: CT brain simón victoria con DATE OF EXAM: 07/06/2023 COMPARISON: 12/24/2022 HISTORY: AMS. Fall. confused CT DLP: 1424.2 mGycm Automated exposure control for dose reduction was used. TECHNIQUE: CT scan of the head and cervical spine are performed without contrast. FINDINGS: Head CT: The ventricles, basal cisterns and sulci over the convexities are moderately enlarged consistent with moderate generalized atrophy. There is no mass effect or shift of midline structures. There is abnormal density in the left costophrenic angle which is most likely registration artifact a nd not acute hemorrhage. The intraorbital contents appear normal and symmetric. There are moderate chronic inflammatory changes in the left ethmoid frontal and maxillary sinuses. The calvarium is intact. CT cervical spine. The craniovertebral junction relationships and prevertebral soft tissues are normal. The cervical vertebral segments are normal in height and alignment and there is no fracture subluxati on. There are posterior metallic fusion of C6 and C7. There is advanced facet arthropathy throughout the cervical region the left much greater than right. There is no bony encroachment of the cervical canal there is mild bony neural foraminal encroachment at the C2-3 and C3-4 levels on the left. IMPRESSION: 1. Abnormal parenchymal density in the left costophrenic angle which appears to be most likely second marcelino to registration artifact and not acute hemorrhage. If there is a strong clinical suspicion an MRI of the brain is recommended for further evaluation. 2. Postsurgical changes and degenerative change and cervical spine without evidence of acute trauma.
--- NOTE | 2023-07-06 21:44 | CT ---
EXAMINATION TYPE: CT brain wo con DATE OF EXAM: 07/06/2023 COMPARISON: 07/06/2023 HISTORY: 58-year-old male abnormal prior, multiple falls, dizziness, repeat scan due to artifact. r/o brain bleed TECHNIQUE: Examination was done in axial plane without intravenous contrast. Coronal and sagittal r econstructions performed. CT DLP: 1183.4 mGycm Automated exposure control for dose reduction was used. FINDINGS: There is no evidence of acute intracranial hemorrhage, acute ischemic changes, mass, mass-effect, or extra-axial fluid collection. There is no effacement of cerebral sulci or basal subarachnoid cister ns. There is no midline shift. Loo-white matter distinction is preserved. Mild to moderate generalized supratentorial volume loss and secondary mild prominence to the ventricu lar system. Mild patchy white matter hypodensities in the subcortical regions. This metastatic calcifications in the bilateral carotid siphons. Prominent leftward nasal septal deviation. Moderate mucosal thickening left maxillary sinus and right ethmoid air cells. Also left frontal sinus. More severe mucosal thickening left ethmoid air cells. M astoid air cells well pneumatized. Orbits and globes are intact. IMPRESSION: 1. Mild to moderate generalized atrophy. No acute intracranial abnormality seen. The questioned possi ble intracranial hemorrhage on the exam earlier today is compatible with beam hardening artifact as i t is not reproduced. 2. Moderate to severe chronic ethmoid and left maxillary sinus disease.
[2023-07-06] MEDS ORDERED: THIAMINE 100 MG/ML 2 ML VIAL IM STA (22:17)
[2023-07-06] MEDS ORDERED: LORazepam 2 MG/ML INJ IV PRN ×2 (22:17)
[2023-07-06 22:40] LABS: Color,Urine Colorless
[2023-07-06 22:41] LABS: Appearance,Urine Clear (Clear); Bilirubin,Urine Negative (Negative); Blood,Urine Negative (Negative); Glucose,Urine (UA) Negative (Negative); Ketones,Urine Negative (Negative); Leukocyte Esterase,Urine Negative (Negative); Nitrite,Urine Negative (Negative); Protein,Urine Negative (Negative); Specific Gravity,Urine 1.009 (1.001-1.035); Urobilinogen,Urine 0.2 mg/dL (<2.0)
[2023-07-06] MEDS ORDERED: NALOXONE 0.4 MG/ML 1 ML VIAL IV PRN (22:44)
[2023-07-06] MEDS: LORazepam 2 MG/ML INJ IV PRN (23:01)
[2023-07-06] MEDS: SODIUM CHLORIDE 0.9% 1,000 ML IV SCH (23:06)
[2023-07-07] MEDS ORDERED: Magnesium Replacement Protocol 1 EACH MISC MISCELLANE PRN (03:26)
[2023-07-07] MEDS: MAGNESIUM SULFATE-D5W PMX 1 GM in DEXTROSE/WATER 1 100ML.BAG IVPB SCH ×4 (04:12→09:36)
[2023-07-07] MEDS: LORazepam 2 MG/ML INJ IV PRN (07:41)
[2023-07-07] MEDS: THIAMINE 100 MG TAB PO SCH (09:37)
[2023-07-07 10:55] LABS: Basophils % (A) 0 %; Eosinophils # (A) 0.3 k/uL (0-0.7); Eosinophils % (A) 6 %; HCT 41.2 % (39.0-53.0); HGB 14.1 gm/dL (13.0-17.5); Lymphocytes # (A) 0.5 k/uL (1.0-4.8); Lymphocytes % (A) 8 %; MCH 35.9 pg (25.0-35.0); MCHC 34.2 g/dL (31.0-37.0); Macrocytosis Slight; Mean Platelet Volume 7.9; Monocytes # (A) 0.7 k/uL (0-1.0); Monocytes % (A) 11 %; Neutrophils # (A) 4.1 k/uL (1.3-7.7); Neutrophils % (A) 72 %; Platelet Count 169 k/uL (150-450); RBC 3.92 m/uL (4.30-5.90); RDW 12.5 % (11.5-15.5); WBC 5.6 k/uL (3.8-10.6)
[2023-07-07 11:34] LABS: African American GFR (CKD) >90 (>60 ml/min/1.73 sqM); Anion Gap 11 mmol/L; Blood Urea Nitrogen 10 mg/dL (9-20); Carbon Dioxide 27 mmol/L (22-30); Chloride 93 mmol/L (98-107); Glucose 120 mg/dL (74-99); Magnesium 2.6 mg/dL (1.6-2.3); Non-African American GFR(CKD) >90 (>60 ml/min/1.73 sqM); Potassium 3.6 mmol/L (3.5-5.1); Sodium 131 mmol/L (137-145)
[2023-07-07] MEDS ORDERED: LOPERAMIDE 2 MG CAP PO PRN (12:38)
[2023-07-07] MEDS: DIVALPROEX ER 500 MG TAB.ER.24H PO SCH ×2 (13:03→21:54)
[2023-07-07] MEDS: TAMSULOSIN 0.4 MG CAP.ER.24H PO SCH (13:03)
[2023-07-07] MEDS: levETIRAcetam 500 MG TAB PO SCH ×2 (13:03→21:54)
[2023-07-07] MEDS: PANTOPRAZOLE 40 MG TABLET PO SCH (13:04)
--- NOTE | 2023-07-07 13:23 | P.PN ---
Progress Note - Text Progress Note Date: 07/07/23 Patient is scheduled to be seen by Severiano lau for psychiatric assessment Agusto Aguirre M.D.
[2023-07-07] MEDS: SODIUM CHLORIDE 0.9% 1,000 ML IV SCH (15:30)
[2023-07-07] MEDS ORDERED: ACETAMINOPHEN TAB 325 MG TAB PO PRN (16:10)
[2023-07-07] MEDS ORDERED: hydrALAZINE HCL 20 MG/ML 1 ML VIAL IVP STA (16:12)
--- NOTE | 2023-07-07 16:13 | P.HPIM ---
History of Present Illness H&P Date: 07/07/23 This is a 58-year-old male who presented to the emergency department with increased weakness and frequent falls striking his head multiple times and EMS was called by family and patient was petitioned this patient is a daily alcoholic and has not been caring for himself. On admission sodium level was found to be 127 with a potassium of 3.5, creatinine 0.56, magnesium 1.3, troponin negative at 0.013 and total bili is 0.7. Urinalysis was negative and serum alcohol was less than 10. Patient was placed on CIWA protocol and admitted under observation for EtOH withdrawal along with being petitioned for altered mentation. Psychiatry was consulted and pending. Images of his brain and C-spine were done showing initial abnormal parenchymal densities in the left costophrenic angle most likely secondary to artifact and no acute hemorrhage with degenerative changes of the cervical spine without evidence of acute trauma. Repeat CT of the brain showing mild to moderate generalized atrophy wit h no acute abnormalities noted and also reporting previous exam earlier taken is compatible with artifact and is not reproduced on additional imaging. Review Of Systems: Constitutional: No fever, no chills, no night sweats. No weight change. She reports of generalized weakness, fatigue or lethargy. No daytime sleepiness. EENT: No headache. No blurred vision or double vision, no loss of vision. No loss of Hearing, no ringing in the ears, no dizziness. No nasal drainage or congestion. No epistaxis. No sore throat. Lungs: No shortness of breath, cough, no sputum production. No wheezing. Cardiovascular: No chest pain, no lower extremity edema. No palpitations. No paroxysmal nocturnal dyspnea. No orthopnea. No lightheadedness or dizziness. No syncopal episodes. Abdominal: No abdominal pain. No nausea, vomiting. No diarrhea. No constipation. No bloody or tarry stools.. No loss of appetite. Genitourinary: No dysuria, increased frequency, urgency. No urinary retention. Musculoskeletal: No myalgias. No muscle weakness, no gait dysfunction, reports frequent falls. Reports back pain as well as neck pain. Integumentary: No wounds, no lesions. No rash or pruritus. No unusual bruising. No change in hair or nails. Neurologic: No aphasia. No facial droop. No change in mentation. No head injury. No headache. No paralysis. No paresthesia. Psychiatric: Reports depression. No anxiety. No mood swings. Endocrine: No abnormal blood sugars. No weight change. No excessive sweating or thirst. No cold intolerance. PHYSICAL EXAMINATION: GENERAL: The patient is alert and oriented x2-3, Well developed, well nourished. Appears elderly and unkempt and disheveled HEENT: Pupils are round and equally reacting to light. EOMI. no scleral icterus. No conjunctival pallor. Normocephalic, atraumatic. No pharyngeal erythema. No thyromegaly. CARDIOVASCULAR: S1 and S2 muffled PULMONARY: diminished breath sounds bilaterally with no wheezing or rhonchi noted. Has a chronic smoker's cough on exam ABDOMEN: soft. Nontender on exam. non-distended, normoactive bowel sounds. No palpable organomegaly. MUSCULOSKELETAL: No joint swelling or deformity. EXTREMITIES: No cyanosis, clubbing, or pedal edema. NEUROLOGICAL: Gross neurological examination did not reveal any focal deficits. Diffuse weakness SKIN: No rashes. Assessment: Acute alcohol withdrawal with acute delirium tremens Frequent falls with gait dysfunction Hyponatremia likely secondary to beer potomania Hypomagnesemia likely secondary to alcoholism Continued ongoing nicotine dependence Continued alcohol abuse daily and reports drinks at least 6 beers daily History of depression THC use Chronic neck and back pain GERD GI prophylaxis DVT prophylaxis Full code Plan: Recommend to continue with current medications and management and awaiting psychiatric evaluation as patient was petitioned by family Patient is a daily drinker and maintained on CINV protocol reports his last drink was one beer yesterday and alcohol level was less than 10 although chronically drinks some liquor daily and at least 6 beers daily Magnesium was low and being replaced and repeat is 2.6 initially came in with a magnesium of 1.3 Continue gentle IV hydration and follow-up on repeat labs Blood pressures are elevated and will monitor and add Norvasc. Hydralazine time once ordered Will have PT/OT therapy evaluate the patient Started Librium taper as well as reviewed and resume home medications that were appropriate The impression and plan of care has been dictated by nurse mimi Guerrero titionemak as directed. Dr. Charity MD I have performed a history and examination and MDM of this patient, discussed the same with the dictator, and agree with the dictator's assessment and plan as written ,documented as a scribe. Based on total visit time, I have performed more than 50% of the visit. Any additional findings or plans will be noted. Past Medical History Past Medical History: Cancer, GERD/Reflux, Hearing Disorder / Deafness, M usculoskeletal Disorder, Seizure Disorder Additional Past Medical History / Comment(s): Hx Alcohol abuse, hx of colon CA 2005, Rt lung CA 2012 . [place], tinnitus. Prob w/ lt shoulder/neck w/ cervical disc prob, NT lt arm. Poss seizure hx, adm 04/2019 D/T alcohol withdrawal w/ Seizures. Varicose veins. History of Any Multi-Drug Resistant Organisms: None Reported Past Surgical History: Bowel Resection, Hernia Repair, Orthopedic Surgery Additional Past Surgical History / Comment(s): Lung biopsy + for CA, partial resection. Colon CA w/ partial colectomy. ORIF Rt ankle. Hiatal hernia surg x2. Past Anesthesia/Blood Transfusion Reactions: No Reported Reaction Past Psychological History: Depression Smoking Status: Current every day smoker - Past Family History Mother Family Medical History: Cancer Father Family Medical History: Respiratory Disorder Additional Family Medical History / Comment(s): "couldn't breath, lung problem" Medications and Allergies Home Medications Medication Instructions Recorded Confirmed Type Tamsulosin [Flomax] 0.4 mg PO DAILY 11/07/22 07/06/23 History Magnesium Oxide [Mag-Ox] 400 mg PO TID 90 Days #90 tab 11/09/22 07/06/23 Rx Pantoprazole [Protonix] 40 mg PO DAILY 90 Days #90 tab 11/09/22 07/06/23 Rx levETIRAcetam [Keppra] 500 mg PO Q12HR 90 Days #180 tab 11/09/22 07/06/23 Rx Cyclobenzaprine [Flexeril] 10 mg PO Q8H PRN 06/02/23 07/06/23 History Divalproex ER [Depakote ER] 500 mg PO BID 06/02/23 07/06/23 History Diphenoxylate HCl/Atropine 1 tab PO DAILY 07/06/23 07/06/23 History [Lomotil 2.5-0.025 mg Tablet] Loperamide HCl [Imodium A-D] 2 - 4 mg PO QID PRN 07/06/23 07/06/23 History Allergies Allergy/AdvReac Type Severity Reaction Status Date / Time No Known Allergies Allergy Verified 07/06/23 21:50 Physical Exam Vitals: Vital Signs Temp Pulse Resp BP Pulse Ox 07/07/23 07:41 99 20 166/110 98 07/07/23 01:22 98.2 F 82 16 136/88 97 07/06/23 21:00 85 144/97 97 07/06/23 20:43 88 99 07/06/23 12:13 98.0 F 88 20 160/95 99 Results CBC & Chem 7: 07/07/23 10:04 07/07/23 10:04 Labs: Abnormal Lab Results - Last 24 Hours (Table) 07/06/23 07/06/23 Range/Units 13:52 13:52 RBC 3.83 L (4.30-5.90) m/uL MCV 105.2 H (80.0-100.0) fL MCH 37.7 H (25.0-35.0) pg Lymphocytes # 0.9 L (1.0-4.8) k/uL Sodium 127 L (137-145) mmol/L Chloride 90 L (98-107) mmol/L Creatinine 0.56 L (0.66-1.25) mg/dL Magnesium 1.3 L (1.6-2.3) mg/dL Thrombosis Risk Factor Assmnt - DVT/VTE Prophylaxis DVT/VTE Prophylaxis: Mechanical Prophylaxis ordered Assessment and Plan Time with Patient: Greater than 30
[2023-07-07] MEDS: amLODIPine 5 MG TAB PO SCH (21:53)
[2023-07-08] MEDS: SODIUM CHLORIDE 0.9% 1,000 ML IV SCH ×2 (03:31→15:14)
[2023-07-08] MEDS: amLODIPine 5 MG TAB PO SCH ×2 (09:54→21:14)
[2023-07-08] MEDS: TAMSULOSIN 0.4 MG CAP.ER.24H PO SCH (09:54)
[2023-07-08] MEDS: DIVALPROEX ER 500 MG TAB.ER.24H PO SCH ×2 (09:54→21:14)
[2023-07-08] MEDS: levETIRAcetam 500 MG TAB PO SCH ×2 (09:54→21:13)
[2023-07-08] MEDS: PANTOPRAZOLE 40 MG TABLET PO SCH (09:54)
[2023-07-08] MEDS: THIAMINE 100 MG TAB PO SCH (09:54)
[2023-07-08 10:05] LABS: Blood Urea Nitrogen 10.8 mg/dL (9.0-27.0); Calcium 9.3 mg/dL (8.7-10.3); Carbon Dioxide 23.8 mmol/L (21.6-31.8); Chloride 98 mmol/L (96-109); Glucose 84 mg/dL (70-110); Magnesium 1.5 mg/dL (1.5-2.4); Sodium 133 mmol/L (135-145)
[2023-07-09] MEDS: SODIUM CHLORIDE 0.9% 1,000 ML IV SCH ×2 (04:17→18:41)
[2023-07-09 05:00] LABS: African American GFR (CKD) >90 (>60 ml/min/1.73 sqM); Anion Gap 10 mmol/L; Blood Urea Nitrogen 13 mg/dL (9-20); Calcium 9.1 mg/dL (8.4-10.2); Carbon Dioxide 22 mmol/L (22-30); Chloride 102 mmol/L (98-107); Glucose 86 mg/dL (74-99); Non-African American GFR(CKD) >90 (>60 ml/min/1.73 sqM); Potassium 4.2 mmol/L (3.5-5.1); Sodium 134 mmol/L (137-145)
[2023-07-09 05:58] LABS: HCT 41.1 % (39.0-53.0); HGB 14.3 gm/dL (13.0-17.5); MCH 37.1 pg (25.0-35.0); MCHC 34.8 g/dL (31.0-37.0); MCV 106.5 fL (80.0-100.0); Macrocytosis Slight; Mean Platelet Volume 9.1; Platelet Count 166 k/uL (150-450); RBC 3.85 m/uL (4.30-5.90); RDW 12.2 % (11.5-15.5); WBC 5.3 k/uL (3.8-10.6)
[2023-07-09 07:12] LABS: Anisocytosis (M) Present; Basophils # (M) 0.05 k/uL (0-0.2); Eosinophils # (M) 0.53 k/uL (0-0.7); Lymphocytes # (M) 0.58 k/uL (1.0-4.8); Monocytes # (M) 0.53 k/uL (0-1.0); Neutrophils % (M) 68 %; Nucleated Red Blood Cells 0 /100 WBC (0-0); Total Cells Counted 100
[2023-07-09] MEDS: TAMSULOSIN 0.4 MG CAP.ER.24H PO SCH (09:52)
[2023-07-09] MEDS: PANTOPRAZOLE 40 MG TABLET PO SCH (09:52)
[2023-07-09] MEDS: levETIRAcetam 500 MG TAB PO SCH ×2 (09:52→21:19)
[2023-07-09] MEDS: DIVALPROEX ER 500 MG TAB.ER.24H PO SCH ×2 (09:52→21:19)
[2023-07-09] MEDS: THIAMINE 100 MG TAB PO SCH (09:52)
[2023-07-09] MEDS: HEPARIN SODIUM,PORCINE 5,000 UNIT/ML 1 ML VIAL SQ SCH ×2 (09:52→15:33)
[2023-07-09] MEDS: amLODIPine 5 MG TAB PO SCH ×2 (09:52→21:19)
[2023-07-09] MEDS: QUEtiapine 25 MG TAB PO SCH (21:19)
--- NOTE | 2023-07-09 21:49 | P.PN ---
Subjective Progress Note Date: 07/08/23 This is a 58-year-old male who presented to the emergency department with increased weakness and frequent falls striking his head multiple times and EMS was called by family and patient was petitioned this patient is a daily alcoholic and has not been caring for himself. On admission sodium level was found to be 127 with a potassium of 3.5, creatinine 0.56, magnesium 1.3, troponin negative at 0.013 and total bili is 0.7. Urinalysis was negative and serum alcohol was less than 10. Patient was placed on CIWA protocol and admitted under observation for EtOH withdrawal along with being petitioned for altered mentation. Psychiatry was consulted and pending. Images of his brain and C-spine were done showing initial abnormal parenchymal densities in the left costophrenic angle most likely secondary to artifact and no acute hemorrhage with degenerative changes of the cervical spine without evidence of acute trauma. Repeat CT of the brain showing mild to moderate generalized atrophy with no acute abnormalities noted and also reporting previous exam earlier taken is compatible with artifact and is not reproduced on additional imaging. 07/08/2023 Patient is resting in bed. Appears to be more awake and oriented today. Still drowsy and lethargic. No complaints of chest pain or shortness of breath. No nausea vomiting. Tolerating oral diet. Patient is requiring Ativan as per alcohol withdrawal protocol. Afebrile. No excessive nausea or vomiting. Laboratory data showed sodium 133 potassium 4.0 chloride 98 bicarb is 23.8 BUN 10.8 and creatinine 0.6 and magnesium 1.5. Current medications reviewed. PHYSICAL EXAMINATION: GENERAL: The patient is alert and oriented x2-3, Well developed, well nourished. Appears elderly and unkempt and disheveled HEENT: Pupils are round and equally reacting to light. EOMI. no scleral icterus. No conjunctival pallor. Normocephalic, atraumatic. No pharyngeal erythema. No thyromegaly. CARDIOVASCULAR: S1 and S2 muffled PULMONARY: diminished breath sounds bilaterally with no wheezing or rhonchi noted. Has a chronic smoker's cough on exam ABDOMEN: soft. Nontender on exam. non-distended, normoactive bowel sounds. No palpable organomegaly. MUSCULOSKELETAL: No joint swelling or deformity. EXTREMITIES: No cyanosis, clubbing, or pedal edema. NEUROLOGICAL: Gross neurological examination did not reveal any focal deficits. Diffuse weakness SKIN: No rashes. Assessment: Acute alcohol withdrawal with acute delirium tremens Frequent falls with gait dysfunction Hyponatremia likely secondary to beer potomania Hypomagnesemia likely secondary to alcoholism Continued ongoing nicotine dependence Continued alcohol abuse daily and reports drinks at least 6 beers daily History of depression THC use Chronic neck and back pain GERD GI prophylaxis DVT prophylaxis Full code Plan: Recommend to continue with current medications and management and awaiting psychiatric evaluation as patient was petitioned by family Patient is a daily drinker and maintained on CIID protocol reports his last drink was one beer yesterday and alcohol level was less than 10 although chronically drinks some liquor daily and at least 6 beers daily Magnesium was low and being replaced Continue gentle IV hydration and follow-up on repeat labs Blood pressures are elevated and will monitor and add Norvasc. Hydralazine time once ordered Will have PT/OT therapy evaluate the patient Started Librium taper as well as reviewed and resume home medications that were appropriate Objective - Vital Signs Vital signs: Vital Signs Temp 97.6 F 07/08/23 14:00 Pulse 85 07/08/23 14:00 Resp 16 07/08/23 14:00 BP 116/66 07/08/23 14:00 Pulse Ox 96 07/08/23 14:00 FiO2 Intake & Output 07/07/23 07/08/23 07/08/23 18:59 06:59 18:59 Weight 79.379 kg Other: Voiding Method Urinal Urinal # Voids 0 1 - Labs CBC & Chem 7: 07/09/23 04:28 07/09/23 04:28 Labs: Abnormal Lab Results - Last 24 Hours (Table) 07/08/23 Range/Units 06:34 Sodium 133 L (135-145) mmol/L
[2023-07-09] MEDS: MAGNESIUM SULFATE-D5W PMX 1 GM in DEXTROSE/WATER 1 100ML.BAG IVPB SCH (23:09)
[2023-07-10] MEDS: MAGNESIUM SULFATE-D5W PMX 1 GM in DEXTROSE/WATER 1 100ML.BAG IVPB SCH (00:13)
[2023-07-10] MEDS: HEPARIN SODIUM,PORCINE 5,000 UNIT/ML 1 ML VIAL SQ SCH ×3 (00:14→15:08)
[2023-07-10] MEDS: TAMSULOSIN 0.4 MG CAP.ER.24H PO SCH (07:59)
[2023-07-10] MEDS: THIAMINE 100 MG TAB PO SCH (07:59)
[2023-07-10] MEDS: amLODIPine 5 MG TAB PO SCH ×2 (07:59→20:35)
[2023-07-10] MEDS: DIVALPROEX ER 500 MG TAB.ER.24H PO SCH ×2 (07:59→20:35)
[2023-07-10] MEDS: PANTOPRAZOLE 40 MG TABLET PO SCH (07:59)
[2023-07-10] MEDS: QUEtiapine 25 MG TAB PO SCH ×2 (07:59→20:35)
[2023-07-10] MEDS: levETIRAcetam 500 MG TAB PO SCH ×2 (07:59→20:35)
[2023-07-10] MEDS: SODIUM CHLORIDE 0.9% 1,000 ML IV SCH ×2 (09:47→20:36)
--- NOTE | 2023-07-10 14:46 | P.CN ---
Psychiatric Consult - . Consult date: 07/09/23 Consult:: IDENTIFYING DATA: This patient is a 58 year old single male with history of severe alcohol use disorder. REASON FOR REFERRAL: Psychiatry was consulted for "depression" HISTORY OF PRESENT ILLNESS: Per chart, patient presented to the hospital "with increased weakness and frequent falls striking his head multiple times and EMS was called by family and patient was petitioned this patient is a daily alcohol ic and has not been caring for himself. On admission sodium level was found to be 127 with a potassium of 3.5, creatinine 0.56, magnesium 1.3, troponin negative at 0.013 and total bili is 0.7. Urinalysis was negative and serum alcohol was less than 10. Patient was placed on CIWA protocol and admitted under observation for EtOH withdrawal along with being petitioned for altered mentation. Psychiatry was consulted and pending. Images of his brain and C-spine were done showing initial abnormal parenchymal densities in the left costophrenic angle most likely secondary to artifact and no acute hemorrhage with degenerative changes of the cervical spine without evidence of acute trauma. Repeat CT of the brain showing mild to moderate generalized atrophy with no acute abnormalities noted and also reporting previous exam earlier taken is compatible with artifact and is not reproduced on additional imaging." His BAL was undetectable on arrival, so it is likely he started to withdraw from alcohol at home. It is unclear when his last drink was. I evaluated patient on 07/09/23. Patient was found resting in bed with his son and a sitter at bedside to maintain safety. On my assessment, patient is overtly delirious and a poor historian. He has difficulty sustaining attention, comprehension and responses are delayed, and has difficulty answering questions coherently, often needing his son to clarify his answers. He is not oriented to time, and incorrectly states it is "July 06". His son reports patient has been talking about things that "never happened", has been confused and thought his daughter came to visit today but it was his sister who came to visit two days ago. He has a history of falls at home. Patient admits to visual hallucinations. I am unable to assess for depression due to the severity of his delirium currently. Patient minimizes his alcohol use and reports drinking about 6-7 beers per day, however son reports he drinks more than this with an additional fifth or pint of alcohol. He denies illicit drug use. He smokes 1ppd. He has never been to residential substance abuse treatment and states he doesn't want to because he has heard about it from other people. He is currently homeless, lost his house about 4 months ago, intermittently staying with his son and son's family. At this time patient denies any suicidal or homicidal ideation, intent or plan. Patient denies any auditory hallucinations, but does admit to visual hallucinations. No overt paranoia or delusions. PAST PSYCHIATRIC HISTORY: Patient has a a history of severe alcohol use disorder and a history of depression. Per chart, he is on Depakote ER 500 mg BID (unclear who this is prescribed by and for what reason). He was previously on Xanax and Trazodone. He is a poor historian so I am unable to get more details about his full medication history. Patient denies any previous psychiatric hospitalizations. Patient denies any psychiatric outpatient follow-up. Patient denies any history of suicide attempts in the past. PAST MEDICAL HISTORY: Multiple surgeries on his neck, legs. Frequent falls at home. History of colon and lung cancer. ALLERGIES: as per EMR. CHEMICAL DEPENDENCY HISTORY: as per HPI. FAMILY PSYCHIATRIC/SUBSTANCE USE HISTORY: denies SOCIAL HISTORY: Not , has children. He lost his house about 4 months ago. He is homeless and staying with his son intermittently. He has been on disability for the past 17 years. MENTAL STATUS EXAM: General Appearance: Patient appears to be stated age, disheveled, poor hygiene, wearing hospital gown with fair eye contact. Behavior: Patient is calmly lying in bed without any agitated behavior, a bit restless. Speech: Patient's speech is slightly delayed and non-pressured. Mood/Affect: Patient reports their mood is "ok", affect is blunted. Suicidality/Homicidality: Patient denies having any suicidal or homicidal ideation intent or plan. Perceptions: Patient reports intermittent visual hallucinations and denies any auditory hallucinations Though content/process: He is overtly confused and a poor historian. Thought process is tangential. Memory and concentration: Alert and oriented to person, place; not oriented to time. Has difficulty sustaining attention. Judgment and insight: Poor IMPRESSIONS: Delirium, multifactorial - [alcohol withdrawal, hyponatremia, macrocytic anemia, poor nutrition, etc] Alcohol withdrawal with perceptual disturbances Alcohol use disorder, severe Rule out depressive disorder PLAN: -At this time patient DOES NOT meet criteria for inpatient psychiatric admission. -Patient DOES NOT have decision making capacity at this time and is unable to reason through and communicate/appreciate the risks, benefits and alternatives to treatment. -Delirium precautions recommended with patient including - avoiding use of narcotics and [employer] sedatives, limit anticholinergic medications when possible, frequent re-orientation, minimize use of restraints, open window shades during the day and close them at night. -Would recommend the following medication changes/additions: -- I have ordered a low dose of Seroquel 12.5 mg BID to help his delirium/hallucinations. Dose can be adjusted based on response. --He is prescribed Depakote ER 500 mg BID. It appears to be a newer home medication; it is likely for seizures since he is also taking Keppra. I have ordered an ammonia level, Valproic acid level. Would recommend consulting neurology to evaluate falls and also to adjust Depakote if ammonia level comes back elevated. --I have ordered Vitamin B12 level due to his macrocytic anemia. He will require supplementation with Vitamin B12 if B12 level is low. --Continue with Librium taper for alcohol withdrawal as you are. Adjust dose as tolerated. --I am unable to assess for depression at this time due to the severity of his delirium. He will need to be evaluated for depression once delirium resolves. -CIWA protocol with PRN Ativan for alcohol withdrawal. Continue to monitor vital signs. -Continue 1:1 sitter for safety. He denies suicidal ideation, but is a high fall risk due to his history of falls and and delirium. -Cannot leave AMA at this time. Patient will need a petition and certification if attempting to leave AMA. -refractory worker to provide patient with outpatient mental health/psychiatry resources for appropriate follow up upon discharge. He will need to be linked with [facility]. -[employer] spoke with patient about substance abuse and the harmful effects on medical and mental health. -refractory worker to provide patient substance use treatment resources including AA/NA meetings in the community. -refractory worker to provide patient with access line number to call for inpatient substance rehab. -Communicated plan to patient's nurse -Will continue to follow along -Please contact with any questions.
[2023-07-10 16:17] LABS: Valproic Acid (Depakene) 75.5 ug/mL
[2023-07-11] MEDS: HEPARIN SODIUM,PORCINE 5,000 UNIT/ML 1 ML VIAL SQ SCH ×3 (00:19→16:10)
--- NOTE | 2023-07-11 00:47 | P.PN ---
Subjective Progress Note Date: 07/09/23 This is a 58-year-old male who presented to the emergency department with increased weakness and frequent falls striking his head multiple times and EMS was called by family and patient was petitioned this patient is a daily alcoholic and has not been caring for himself. On admission sodium level was found to be 127 with a potassium of 3.5, creatinine 0.56, magnesium 1.3, troponin negative at 0.013 and total bili is 0.7. Urinalysis was negative and serum alcohol was less than 10. Patient was placed on CIWA protocol and admitted under observation for EtOH withdrawal along with being petitioned for altered mentation. Psychiatry was consulted and pending. Images of his brain and C-spine were done showing initial abnormal parenchymal densities in the left costophrenic angle most likely secondary to artifact and no acute hemorrhage with degenerative changes of the cervical spine without evidence of acute trauma. Repeat CT of the brain showing mild to moderate generalized atrophy with no acute abnormalities noted and also reporting previous exam earlier taken is compatible with artifact and is not reproduced on additional imaging. 07/08/2023 Patient is resting in bed. Appears to be more awake and oriented today. Still drowsy and lethargic. No complaints of chest pain or shortness of breath. No nausea vomiting. Tolerating oral diet. Patient is requiring Ativan as per alcohol withdrawal protocol. Afebrile. No excessive nausea or vomiting. Laboratory data showed sodium 133 potassium 4.0 chloride 98 bicarb is 23.8 BUN 10.8 and creatinine 0.6 and magnesium 1.5. 07/09/2023 Patient is lying in the bed. Awake alert and oriented but still shaky and requiring Ativan and is also on Librium 10 mg 4 times daily. No complaints of chest pain or shortness of breath. Currently on room air. No nausea or vomiting. Able to tolerate oral diet this afternoon. Patient was started on Seroquel 12.5 mg twice daily as per psychiatry recommendations. Laboratory data showed WBC 5.3 hemoglobin 14.3, MCV 106.5 and platelets 166 Sodium 134 potassium 4.2 chloride 102 bicarb is 22 BUN 13 and creatinine 0.62 and blood sugar 86. Current medications reviewed. [ PHYSICAL EXAMINATION: GENERAL: The patient is alert and oriented x2-3, Well developed, well nourished. Appears elderly and unkempt and disheveled HEENT: Pupils are round and equally reacting to light. EOMI. no scleral icterus. No conjunctival pallor. Normocephalic, atraumatic. No pharyngeal erythema. No thyromegaly. CARDIOVASCULAR: S1 and S2 muffled PULMONARY: diminished breath sounds bilaterally with no wheezing or rhonchi noted. Has a chronic smoker's cough on exam ABDOMEN: soft. Nontender on exam. non-distended, normoactive bowel sounds. No palpable organomegaly. MUSCULOSKELETAL: No joint swelling or deformity. EXTREMITIES: No cyanosis, clubbing, or pedal edema. NEUROLOGICAL: Gross neurological examination did not reveal any focal deficits. Diffuse weakness SKIN: No rashes. Assessment: Acute alcohol withdrawal with acute delirium tremens Frequent falls with gait dysfunction Hyponatremia likely secondary to beer potomania Hypomagnesemia likely secondary to alcoholism Continued ongoing nicotine dependence Continued alcohol abuse daily and reports drinks at least 6 beers daily History of depression THC use Chronic neck and back pain GERD GI prophylaxis DVT prophylaxis Full code Plan: Recommend to continue with current medications and management and awaiting psychiatric evaluation as patient was petitioned by family Patient is a daily drinker and maintained on CIWA protocol .chronically drinks some liquor daily and at least 6 beers daily Magnesium was low and being replaced Continue gentle IV hydration and follow-up on repeat labs Blood pressures are elevated and will monitor and add Norvasc. Will have PT/OT therapy evaluate the patient Patient will be continued on Librium . Continue with Seroquel 12.5 mg twice daily as per psychiatry recommendations. Continue with Depakote p.o. One-to-one sitter and patient cannot leave AMA Objective - Vital Signs Vital signs: Vital Signs Temp 98 F 07/09/23 20:00 Pulse 81 07/09/23 20:00 Resp 16 07/09/23 20:00 BP 121/67 07/09/23 20:00 Pulse Ox 95 07/09/23 20:00 FiO2 Intake & Output 07/09/23 07/09/23 07/10/23 06:59 18:59 06:59 Intake Total 900 Output Total 500 650 Balance 900 -500 -650 Intake: Intake, IV Titration 900 Amount Sodium Chloride 0.9% 1, 900 000 ml @ 75 mls/hr IV . [id number] MARIA LUZ Rx#:[id number] Output: Urine 500 650 - Labs CBC & Chem 7: 07/09/23 04:28 07/09/23 04:28 Labs: Abnormal Lab Results - Last 24 Hours (Table) 07/09/23 07/09/23 Range/Units 04:28 04:28 RBC 3.85 L (4.30-5.90) m/uL MCV 106.5 H (80.0-100.0) fL MCH 37.1 H (25.0-35.0) pg Lymphocytes # (Manual) 0.58 L (1.0-4.8) k/uL Sodium 134 L (137-145) mmol/L Creatinine 0.62 L (0.66-1.25) mg/dL
--- NOTE | 2023-07-11 00:48 | P.PN ---
Subjective Progress Note Date: 07/10/23 This is a 58-year-old male who presented to the emergency department with increased weakness and frequent falls striking his head multiple times and EMS was called by family and patient was petitioned this patient is a daily alcoholic and has not been caring for himself. On admission sodium level was found to be 127 with a potassium of 3.5, creatinine 0.56, magnesium 1.3, troponin negative at 0.013 and total bili is 0.7. Urinalysis was negative and serum alcohol was less than 10. Patient was placed on CIWA protocol and admitted under observation for EtOH withdrawal along with being petitioned for altered mentation. Psychiatry was consulted and pending. Images of his brain and C-spine were done showing initial abnormal parenchymal densities in the left costophrenic angle most likely secondary to artifact and no acute hemorrhage with degenerative changes of the cervical spine without evidence of acute trauma. Repeat CT of the brain showing mild to moderate generalized atrophy with no acute abnormalities noted and also reporting previous exam earlier taken is compatible with artifact and is not reproduced on additional imaging. 07/08/2023 Patient is resting in bed. Appears to be more awake and oriented today. Still drowsy and lethargic. No complaints of chest pain or shortness of breath. No nausea vomiting. Tolerating oral diet. Patient is requiring Ativan as per alcohol withdrawal protocol. Afebrile. No excessive nausea or vomiting. Laboratory data showed sodium 133 potassium 4.0 chloride 98 bicarb is 23.8 BUN 10.8 and creatinine 0.6 and magnesium 1.5. 07/09/2023 Patient is lying in the bed. Awake alert and oriented but still shaky and requiring Ativan and is also on Librium 10 mg 4 times daily. No complaints of chest pain or shortness of breath. Currently on room air. No nausea or vomiting. Able to tolerate oral diet this afternoon. Patient was started on Seroquel 12.5 mg twice daily as per psychiatry recommendations. Laboratory data showed WBC 5.3 hemoglobin 14.3, MCV 106.5 and platelets 166 Sodium 134 potassium 4.2 chloride 102 bicarb is 22 BUN 13 and creatinine 0.62 and blood sugar 86. 07/10/2023 Patient is lying in the bed. Currently on room air. Lethargic and sleepy. No complaints of chest pain or shortness of breath. No nausea vomiting abdominal pain. No cough or sputum production. Able to tolerate oral diet today as per nursing staff. Continued on alcohol withdrawal protocol and is also on Seroquel 12.5 mg twice daily. Will change Librium 4 times daily as needed for alcohol withdrawal. Also started on lactulose due to mild elevated ammonia level. Current medications reviewed. [ PHYSICAL EXAMINATION: GENERAL: The patient is alert and oriented x2-3, Well developed, well nourished. Appears elderly and unkempt and disheveled HEENT: Pupils are round and equally reacting to light. EOMI. no scleral icterus. No conjunctival pallor. Normocephalic, atraumatic. No pharyngeal erythema. No thyromegaly. CARDIOVASCULAR: S1 and S2 muffled PULMONARY: diminished breath sounds bilaterally with no wheezing or rhonchi noted. Has a chronic smoker's cough on exam ABDOMEN: soft. Nontender on exam. non-distended, normoactive bowel sounds. No palpable organomegaly. MUSCULOSKELETAL: No joint swelling or deformity. EXTREMITIES: No cyanosis, clubbing, or pedal edema. NEUROLOGICAL: Gross neurological examination did not reveal any focal deficits. Diffuse weakness SKIN: No rashes. Assessment: Acute alcohol withdrawal with acute delirium tremens Frequent falls with gait dysfunction Hyponatremia likely secondary to beer potomania Hypomagnesemia likely secondary to alcoholism Continued ongoing nicotine dependence Continued alcohol abuse daily and reports drinks at least 6 beers daily History of depression THC use Chronic neck and back pain GERD GI prophylaxis DVT prophylaxis Full code Plan: Recommend to continue with current medications and management and awaiting psychiatric evaluation as patient was petitioned by family Patient is a daily drinker and maintained on CIWA protocol .chronically drinks some liquor daily and at least 6 beers daily Magnesium was low and being replaced Continue gentle IV hydration and follow-up on repeat labs Blood pressures are elevated and will monitor and add Norvasc. Will have PT/OT therapy evaluate the patient Patient will be continued on Librium changed to as needed due to patient being lethargic and drowsy today. Continue with Seroquel 12.5 mg twice daily as per psychiatry recommendations. Depakote level within normal limits. Continue with Depakote p.o. One-to-one sitter and patient cannot leave AMA Objective - Vital Signs Vital signs: Vital Signs Temp 97.8 F 07/10/23 18:58 Pulse 78 07/10/23 18:58 Resp 18 07/10/23 18:58 BP 138/80 07/10/23 18:58 Pulse Ox 98 07/10/23 18:58 FiO2 Intake & Output 07/10/23 07/10/23 07/11/23 06:59 18:59 06:59 Output Total 2700 1150 Balance -2700 -1150 Output: Urine 2700 1150 Other: Voiding Method Toilet # Bowel Movements 1 - Labs CBC & Chem 7: 07/09/23 04:28 07/09/23 04:28 Labs: Abnormal Lab Results - Last 24 Hours (Table) 07/10/23 Range/Units 15:03 Ammonia 43 H (<30) umol/L
[2023-07-11 08:44] LABS: HCT 38.1 % (39.6-50.0); HGB 12.9 g/dL (13.0-17.0); MCH 35.8 pg (27.0-32.0); MCHC 33.9 g/dL (32.0-37.0); MCV 105.8 FL (80.0-97.0); Mean Platelet Volume 10.3 FL (9.5-12.2); NRBC Per 100 WBC 0 X 10*3/uL (0.00-0.01); Platelet Count 207 X 10*3/uL (140-440); RDW 12.5 % (11.5-14.5); WBC 6.06 X 10*3/uL (4.50-10.00)
[2023-07-11 09:00] LABS: BUN/Creat Ratio 19.67 Ratio (12.00-20.00); Blood Urea Nitrogen 11.8 mg/dL (9.0-27.0); Calcium 9.2 mg/dL (8.7-10.3); Carbon Dioxide 24.1 mmol/L (21.6-31.8); Chloride 103 mmol/L (96-109); Glucose 91 mg/dL (70-110); Potassium 4.4 mmol/L (3.5-5.5); Sodium 138 mmol/L (135-145)
[2023-07-11] MEDS ORDERED: LACTULOSE 20 GM/30 ML CUP PO SCH (09:00)
[2023-07-11] MEDS: THIAMINE 100 MG TAB PO SCH (09:03)
[2023-07-11] MEDS: PANTOPRAZOLE 40 MG TABLET PO SCH (09:03)
[2023-07-11] MEDS: amLODIPine 5 MG TAB PO SCH ×2 (09:03→21:41)
[2023-07-11] MEDS: QUEtiapine 25 MG TAB PO SCH (09:03)
[2023-07-11] MEDS: levETIRAcetam 500 MG TAB PO SCH ×2 (09:03→21:41)
[2023-07-11] MEDS: TAMSULOSIN 0.4 MG CAP.ER.24H PO SCH (09:03)
[2023-07-11] MEDS: DIVALPROEX ER 500 MG TAB.ER.24H PO SCH ×2 (09:03→21:41)
[2023-07-11] MEDS: SODIUM CHLORIDE 0.9% 1,000 ML IV SCH ×2 (09:07→21:42)
[2023-07-11 09:25] LABS: Basophils # (A) 0.04 X 10*3/uL (0.00-0.10); Basophils % (A) 0.7 %; Eosinophils # (A) 0.48 X 10*3/uL (0.04-0.35); Eosinophils % (A) 7.9 %; Lymphocytes # (A) 0.77 X 10*3/uL (0.90-5.00); Lymphocytes % (A) 12.7 %; Macrocytosis (M) 2+; Monocytes # (A) 0.84 X 10*3/uL (0.20-1.00); Monocytes % (A) 13.9 %; Neutrophils # (A) 3.91 X 10*3/uL (1.80-7.70); Neutrophils % (A) 64.5 %
[2023-07-11] MEDS ORDERED: QUEtiapine 25 MG TAB PO PRN (14:02)
--- NOTE | 2023-07-11 14:08 | P.PN ---
Progress Note - Text Progress Note Date: 07/11/23 Interval History: Patient was seen today for psychiatric father follow-up regarding patient's de lirium and alcohol withdrawal/use disorder. Patient was seen sitting with his sitter today talking to her. He was agreeable to speak to screen writer. He was fairly pleasant and joking around at times. He had good concentration today. He was directable during conversation however did ramble at times. He was able to give an approximate date, knew his name and age and knew that he was in the hospital however did not know where. Claims that he is able to sleep fairly well at nighttime. Denying any depression or anxiety at this time. He is denying any access to guns or weapons, states that he is eating fairly, denying any paranoia or delusions today. At this time patient denies any suicidal or homical ideations, intent or plan. Patient denies any auditory, visual hallucinations and denies any paranoia or delusions. Patient denies any side effects from the medications and has been compliant with meds. We spoke about changing his medication scheduling which she is okay with. He asked appropriate questions. He claims that he does not know where she will go upon discharge. MENTAL STATUS EXAM: General Appearance: Patient appears to be thin, stated age, disheveled, poor hygiene, wearing hospital gown with fair eye contact. Behavior: Patient is calmly lying in bed without any agitated behavior, more directable today Speech: Patient's speech is slightly delayed and non-pressured. Improving Mood/Affect: Patient reports their mood is "ok", affect is improving Suicidality/Homicidality: Patient denies having any suicidal or homicidal ideation intent or plan. Perceptions: Patient denies any visual hallucinations and denies any auditory hallucinations Though content/process: He is more logical today, goal oriented. Joking times. Rambles at times. Memory and concentration: Alert and oriented to person, place; he knows an approximate date. Improvement in attention Judgment and insight: Improving IMPRESSIONS: Delirium, multifactorial - [alcohol withdrawal, hyponatremia, macrocytic anemia, poor nutrition, etc] Alcohol use disorder, severe Rule out depressive disorder PLAN: -At this time patient DOES NOT meet criteria for inpatient psychiatric admission. -Delirium precautions recommended with patient including - avoiding use of narcotics and CLARIFIER OPERATOR HELPER sedatives, limit anticholinergic medications when possible, frequent re-orientation, minimize use of restraints, open window shades during the day and close them at night. -Would recommend the following medication changes/additions: Continue Depakote as prescribed. Change dose of Seroquel 25 mg daily at bedtime scheduled for delirium/insomnia. 25 mg twice a day Seroquel when necessary for agitation/psychosis. Melatonin 3 mg scheduled daily at bedtime for sleep -preparation room worker to provide patient with outpatient mental health/psychiatry resources for appropriate follow up upon discharge. He will need to be linked with [facility]. -Air Conditioning Manager spoke with patient about substance abuse and the harmful effects on medical and mental health. -preparation room worker to provide patient substance use treatment resources including AA/NA meetings in the community. -preparation room worker to provide patient with access line number to call for inpatient substance rehab. -Air Conditioning Manager communicated plan with patient's nurse and patient, at this time psychiatry will sign off.
[2023-07-11 14:25] VITALS: TEMP 98.1
[2023-07-11] MEDS ORDERED: QUEtiapine 25 MG TAB PO SCH (21:00)
[2023-07-11] MEDS ORDERED: MELATONIN 3 MG TABLET PO SCH (21:00)
[2023-07-11 22:07] VITALS: BP 97/65; PULSE 83; RESP 17
== END 2023-07-11 22:44 | disposition home or self-care (01) | DRG 897 ==
LOC: EC 11:11 → 4SSUR 22:44 → OBSVTOIN 22:45 → 4SSUR 23:08
PROVIDERS: ADMIT Hospitalist; ATTEND Hospitalist
DX: F10.231 Alcohol dependence with withdrawal delirium (principal); E87.1 Hypo-osmolality and hyponatremia; F05 Delirium due to known physiological condition; Z59.01 Sheltered homelessness; D53.9 Nutritional anemia, unspecified; G40.909 Epilepsy, unspecified, not intractable, without status epilepticus; F32.A Depression, unspecified; R29.6 Repeated falls; K21.9 Gastro-esophageal reflux disease without esophagitis; H91.90 Unspecified hearing loss, unspecified ear; F17.210 Nicotine dependence, cigarettes, uncomplicated; J32.0 Chronic maxillary sinusitis; E86.1 Hypovolemia; R26.9 Unspecified abnormalities of gait and mobility; E83.42 Hypomagnesemia; G89.29 Other chronic pain; M54.2 Cervicalgia; M54.9 Dorsalgia, unspecified; Y90.0 Blood alcohol level of less than 20 mg/100 ml; W19.XXXA Unspecified fall, initial encounter; Z91.81 History of falling; Z85.118 Personal history of other malignant neoplasm of bronchus and lung; Z85.038 Personal history of other malignant neoplasm of large intestine; Z90.49 Acquired absence of other specified parts of digestive tract; Y92.009 Unspecified place in unspecified non-institutional (private) residence as the place of occurrence of the external cause; Z79.899 Other long term (current) drug therapy
CPT/HCPCS: 36415; 70450; 72125; 80048; 80053; 80164; 80320; 81003; 82140; 82607; 83735; 84484; 85025; 85610; 85730; 93005; 96361; 96365; 96366; 96375; 96376; 99285